=== PATIENT | female | born 1980 | race Caucasian/White ===

== ENCOUNTER 2023-08-04 08:46 | Outpatient (AMB) | payer BC, SELFPAY ==
[2023-08-04 08:52] VITALS: BP 120/90; PULSE 78; TEMP 36.2; O2SAT 99; BMI 34.9
--- NOTE | 2023-08-04 08:52 | AM.OFFWIN_ITS ---
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 Son home with Strep. [facility] Social History Patient Tobacco Use Status: Never used Tobacco Physical Exam Vital Signs: Last Vital Signs Temp 97.2 F 08/04/23 08:52 Pulse 78 08/04/23 08:52 BP 120/90 H 08/04/23 08:52 Pulse Ox 99 08/04/23 08:52 Oxygen Delivery Method Room Air 08/04/23 08:52 BMI result Body Mass Index 34.9 Const General: comfortable and no acute distress Orientation/consciousness: patient oriented x3 HEENT Head: Yes normocephalic Ears: external ears normal and TM abnormal with fluid behind the TM bilateral General nose exam: No nasal discharge present and Abnormal mucous membranes and turbinates present pale Face and sinus: Yes sinuses nontender Mouth: moist mucous membranes Throat: Yes posterior oropharynx normal Resp Effort & Inspection: normal respiratory effort and able to speak in complete sentences Auscultation: clear to auscultation bilaterally, no crackles, no rales, no rhonchi and no wheezes Cardio Palpation: normal PMI Rate: regular rate Rhythm: regular rhythm Neuro General: patient oriented x3 Results AMB Rapid Strep AMB Rapid Strep Negative Last Edit by Alyson Sanchez MA on 08/04/23 09:47 Results Reviewed Results Reviewed: Laboratory Last Values Strep Scn Rapid Clinic Negative 08/04/23 09:47 Assessment & Plan Assessment & Plan (1) Acute pharyngitis: Code(s): J02.9 - Acute pharyngitis, unspecified Qualifiers: Pharyngitis/tonsillitis etiology: unspecified etiology Qualified Code(s): J02.9 - Acute pharyngitis, unspecified Plan: - OTC cold remedies - Rest and hydrate well with warm fluids - Acetaminophen for pain relief. - Take medications as directed. Medications: New amoxicillin 500 mg PO BID 20 caps 0RF 10 days J02.9 - Acute pharyngitis, unspecified Coding Level of Care Code Est Pt Level 3 (58525) Diagnoses Acute pharyngitis, unspecified etiology J02.9 Pharyngitis/tonsillitis etiology: unspecified etiology Time Spent (min) 15
== END 2023-08-04 09:30 | disposition home or self-care (01) ==
PROVIDERS: PCP Internal Medicine; Visit Provider Nurse Practitioner Family
DX: J02.9 Acute pharyngitis, unspecified (principal)
CPT/HCPCS: 87880; 99213

== ENCOUNTER 2024-02-27 07:26 | Outpatient (AMB) | payer BC, SELFPAY ==
[2024-02-27 07:32] VITALS: BP 142/92; PULSE 69; O2SAT 100; BMI 39.1
--- NOTE | 2024-02-27 07:32 | A.OFFPC_ITS ---
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 Intake Note: Pt is here today as a New Patient to est care/PE Allergies semaglutide [From Ozempic] Adverse Reaction (Intermediate, Verified 02/27/24 08:22) Blurry Vision dulaglutide [From Trulicity] Adverse Reaction (Unverified 02/27/24 08:23) abd pain Medication List - Last Reconciled 02/27/24 by Jenny Xie MD estradiol 1 mg PO DAILY insulin lispro (Humalog U-100 Insulin) subcut levothyroxine 125 mcg PO DAILY lisinopril 5 mg PO DAILY progesterone micronized mg PO rosuvastatin 5 mg PO DAILY Tobacco use date assessed: 02/27/24 Dental Screening Dental Screen Date: 02/27/24 Did you have a dental visit in the last 12 months?: No Did you have a dental problem in the last 6 months where you did not have access to dental care?: No Was dental information given to patient?: Patient has dentist HPI 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 Past medical history includes insulin-dependent diabetes for 20 years on insulin pump. Patient is established with endocrinology at [facility]. 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 [facility] Family History Father Type 1 diabetes mellitus Brother Type 1 diabetes mellitus ALL (acute lymphoblastic leukemia) Mother HTN (hypertension) Social History Household Members Other:: , 3 children, (11-6). 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 1. Little interest or pleasure in doing things: not at all 2. Feeling down, depressed, or hopeless: not at all 3. Trouble falling or staying asleep, or sleeping too much: not at all 4. Feeling tired or having little energy: several days 5. Poor appetite or overeating: several days 6. Feeling bad about yourself - or that you are a failure or have let yourself or your family down: not at all 7. Trouble concentrating on things, such as reading the newspaper or watching television: not at all 8. Moving or speaking so slowly that other people could have noticed. Or the opposite - being so fidgety or restless that you have been moving around a lot more than usual: not at all 9. Thoughts that you would be better off or of hurting yourself in some way: not at all Total score: 2 Depression Screening Interpretation: Negative Depression Screening Done: Yes 99302 - PHQ-9 Billing: Yes Source: Developed by Drs. Simone Waldrop, Tiffany Chong, Ashish Linton and colleagues, with an educational felicia from [employer]. Thrive Questionnaire Date Thrive assessed: 02/27/24 I am a: Patient What is your living situation today?: I have a steady place to live Within the past 12 months, did the food you bought not last and you didn't have the money to get more?: Never true Within the past 12 months, did you worry whether your food would run out before you got money to buy more?: Never true Do you have trouble paying for medicines?: No Do you have trouble getting transportation to medical appointments?: No Do you have trouble paying your heating and electricity bill?: No Do you have trouble taking care of your child, family member or friend?: No Do you have trouble with day-to-day activities such as bathing, preparing meals, shopping, managing finances, etc.?: No Are you currently unemployed and looking for a job?: No Are you interested in more education?: No Please select the resources that you would like help with: None Currently or been in a relationship where the following occur: No concerns reported THRIVE Score: 0 AUDIT C Alcohol Use Questionnaire (AUDIT-C) 1. How often do you have a drink containing alcohol?: 2-4 times a month 2. How many drinks containing alcohol do you have on a typical day when you are drinking?: 1 or 2 3. How often do you have six or more drinks on one occasion?: Never Total Score: 2 ROSA-7 AMB Questionnaire ROSA-7 Date ROSA - 7 assessed: 02/27/24 Feeling nervous, anxious, or on edge: 1 = Several days Not being able to stop or control worryin = Not at all Worrying too much about different things: 0 = Not at all Trouble relaxin = Not at all Being so restless that it is hard to sit still: 0 = Not at all Becoming easily annoyed or irritable: 0 = Not at all Feeling afraid as if something awful might happen: 0 = Not at all Total ROSA-7 score (0-4 normal; 5-9 mild; 10-14 moderate; 15-21 severe): 1 Source: Developed by Drs. Simone Waldrop, Tifafny Chong, Ashish Linton and colleagues, with an educational felicia from [employer]. Review of Systems Const All systems reviewed & are unremarkable except as noted in HPI and below Reports no additional complaints Eyes Reports no additional complaints ENT Reports no additional complaints Card Reports no additional complaints Resp Reports no additional complaints GI Reports no additional complaints Reports no additional complaints Physical exam (Primary Care) Vital Signs: Last Vital Signs Pulse 69 02/27/24 07:32 BP 142/92 H 02/27/24 07:32 Pulse Ox 100 02/27/24 07:32 Oxygen Delivery Method Room Air 02/27/24 07:32 BMI result Body Mass Index 39.1 Tobacco/Smoking Status: Tobacco use Status Tobacco use date assessed 02/27/24 02/27/24 07:34 Patient Tobacco Use Status Never used Tobacco 02/27/24 08:16 e-Cigarette/Vaping Use Never Used 02/27/24 08:16 PHQ-9: PHQ-9 Score PHQ-9: Total score 2 02/27/24 08:28 Depression Screening Interpretation: Negative Thrive Assessment: Date of Thrive Assessment Date Thrive assessed 02/27/24 02/27/24 07:34 Currently or been in a relationship where the following occur: No concerns reported Const General: no acute distress HENMT Head: Yes normal to inspection Ears: hearing grossly normal bilaterally General nose exam: Normal external nose present Face and sinus: Yes normal facial exam Mouth: Normal oral and palatal mucosa present Throat: Yes posterior oropharynx normal Eyes General: appearance normal, both eyes and all related structures Neck Neck: Yes no lymphadenopathy and Yes supple Resp Effort & Inspection: normal respiratory effort Auscultation: clear to auscultation bilaterally Cardio Rhythm: regular rhythm Heart sounds: S1 normal heart sound present and S2 normal heart sound present GI Inspection: Yes normal to inspection Palpation (GI): Soft to palpation Percussion: Yes normal to percussion Auscultation: normal bowel sounds Coding Level of Care Code New Pt Prev Care 40-64y(21341) Diagnoses DM type 1 (diabetes mellitus, type 1) E10.9 Hypothyroid E03.9 HPV (human papilloma virus) infection B97.7 Annual physical exam Z00.00 HTN (hypertension) I10 Assessment & Plan Assessment & Plan (1) DM type 1 (diabetes mellitus, type 1): Comment: X 20yrs, f/u [facility] , recent A1C 7.3 01/04/2024 Code(s): E10.9 - Type 1 diabetes mellitus without complications Category: Medical Plan: f/u with Endocrine (2) Hypothyroid: Comment: f/u Endo [facility] Code(s): E03.9 - Hypothyroidism, unspecified Category: Medical Plan: cont Levothyroxine (3) HPV (human papilloma virus) infection: Comment: f/u Dr. 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 She will discussed trying [place]o with endocrinology to facilitate weight lost and diabetes control (5) HTN (hypertension): Code(s): I10 - Essential (primary) hypertension Category: Medical Plan: START 5 MG OF LISINOPRIL, INCREASE PHYSICAL ACTIVITY LOW-SODIUM DIET WEIGHT LOSS DISCUSSED WITH THE PATIENT FOLLOW-UP IN 1 MONTH Medications: New lisinopril 5 mg PO DAILY 90 tabs 0RF
== END 2024-02-27 08:40 | disposition home or self-care (01) ==
LOC: HO.HMCC 07:26
PROVIDERS: PCP Internal Medicine; Visit Provider Internal Medicine
DX: E10.9 Type 1 diabetes mellitus without complications (principal); E03.9 Hypothyroidism, unspecified; B97.7 Papillomavirus as the cause of diseases classified elsewhere; Z00.00 Encounter for general adult medical examination without abnormal findings; I10 Essential (primary) hypertension

== ENCOUNTER → 2024-02-27 07:26 | Outpatient (BNVA) | payer BC, SELFPAY | PROVIDERS: PCP Internal Medicine; Visit Provider Internal Medicine ==

== ENCOUNTER 2024-04-06 09:46 | Outpatient (AMB) | payer BC, SELFPAY ==
--- OUTSIDE RECORDS SUMMARY | 2024-04-06 09:51 | XMS_ITS | Data Portability ---
Author Organization [facility], Main Office Address [address] [place] [address] Care Team Providers Care Percolator Operator Name Role Phone SMILEY LEVINE Primary Care Provider [phone] GIL SAMANIEGO Referring Provider [phone] SANA WILSON Referring Provider [phone] HEBER ALDANA Patch Machine Operator SANA WILSON Tow Motor Mechanic Assessment No assessment recorded. Plan of Treatment Reminders Order Date Submit Date Provider Last Modified By Organization Details Last Modified Time Details Appointments None recorded. Lab None recorded. Referral rheumatolo gist referral - rheumatoid arthritis 2016 017 [email or web address] Oscar Delgado MD, [address], [place], [address], 8 13:33:07 dermatolog ist referral 2016 017 [email or web address] Not available 8 13:33:[address]/dietiti an referral 2017 018 [email or web address] Not available 8 12:06:[address]/dietiti an referral 2018 019 abigby Not available 9 15:54:[address]/dietiti an referral 2018 019 abigby Not available 9 15:53:47 barrel bander referral 2018 019 abigby Not available 9 15:54:[address] referral - Patient to schedule 2018 019 abigby Not available 9 15:54:18 Procedures None recorded. Surgeries None recorded. Imaging None recorded. Medication Orders None recorded. Patient Targets Encounter Date Encounter Id Patient Goals Patient Target Last Modified By Organization Details Last Modified Time 01/04/2018 [id number] Ongoing of Microalbumin/Cre atinine Ratio yearly Not available Not available Not available Ongoing of Blood Pressure Not available Not available Not available Ongoing of Hemoglobin A1C 2 times per yr Not available Not available Not available Ongoing of Hemoglobin A1C <7 Not available Not available Not available Ongoing of LDL Direct <100 Not available Not available Not available Ongoing of Cholesterol, LDL <100 Not available Not available Not available Pt advised and agrees to do moderate exercise (such as walking) for approximately 150 minutes per week; to decrease carbohydrate intake (25 % of total carbohydrates or less); and to monitor blood glucose as directed Will bring meter and/or readings to appointments. Patient preferences and goals incorporated in plan and updated/modified as needed to reflect progress toward goal. [email or web address] Not available 01/04/2018 10:46:59 Patient Instructions Encounter Date Encounter Id Patient Instructions Last Modified By Organization Details Last Modified Time 01/18/2014 [id number] tendon injury (tendinopathy): care instructions [email or web address] Not available 01/21/2014 08:11:36 shayna's thyroiditis: care instructions [email or web address] Not available 01/21/2014 08:11:36 learning about type 1 diabetes [email or web address] Not available 01/21/2014 08:11:36 type 1 diabetes: care instructions [email or web address] Not available 01/21/2014 08:11:36 rheumatoid arthritis diet: care instructions Not available 01/21/2014 08:11:36 Rheumatoid Arthritis (RA): Care Instructions [email or web address] Not available 01/21/2014 08:11:36 11/19/2016 [id number] learning about type 1 diabetes Not available 11/19/2016 09:30:52 type 1 diabetes: care instructions Not available 11/19/2016 09:30:53 rheumatoid arthritis diet: care instructions Not available 11/19/2016 09:30:52 Rheumatoid Arthritis (RA): Care Instructions Not available 11/19/2016 09:30:52 skin lesions: care instructions Not available 11/19/2016 09:30:52 01/04/2018 [id number] learning about type 1 diabetes [email or web address] Not available 01/04/2018 10:56:13 type 1 diabetes: care instructions pmadden Not available 01/04/2018 10:56:13 vitiligo: care instructions pmadden Not available 01/04/2018 10:56:13 starting a weight loss plan: care instructions pmadden Not available 01/04/2018 10:56:13 Nutrition Referral and Weight Management Follow-up Information [email or web address] Not available 01/04/2018 10:56:13 rheumatoid arthritis diet: care instructions pmadden Not available 01/04/2018 10:56:13 Rheumatoid Arthritis (RA): Care Instructions pmadden Not available 01/04/2018 10:56:13 skin lesions: care instructions pmadden Not available 01/04/2018 10:56:13 Medications (OTC, herbal therapies, supplements) reviewed and reconciled with patient and or caregiver, including potential side effects, drug interactions, instructions, and the consequences of not taking medication. Reviewed potential barriers to medication adherence, such as side effects from medication or cost of medication. I have reviewed the note and agree with the assessment and plan of care. [email or web address] Not available 01/04/2018 11:21:50 02/12/2019 [id number] starting a weight loss plan: care instructions Not available 02/12/2019 15:04:55 starting a weight loss plan: care instructions Not available 02/12/2019 15:05:18 Cervical Cancer Screening Not available 02/12/2019 15:04:55 02/20/2020 [id number] shayna's thyroiditis: care instructions [email or web address] Not available 02/20/2020 15:32:59 learning about type 1 diabetes [email or web address] Not available 02/20/2020 15:32:59 type 1 diabetes: care instructions [email or web address] Not available 02/20/2020 15:32:59 rheumatoid arthritis diet: care instructions [email or web address] Not available 02/20/2020 15:32:59 Rheumatoid Arthritis (RA): Care Instructions [email or web address] Not available 02/20/2020 15:32:59 Reason for Referral Maxillofacial Surgeon Referral for S kin lesion Referring Physician: Smiley Levine [facility], Encounter Date: 11/19/2016 Business Consult Referral for Rheumatoid arthritis rheumatoid arthritis Referring Physician: Smiley Levine [facility], Encounter Date: 11/19/2016 Territory Manager/dietitian Refer ral for Body mass index 30+ - obesity Referring Physician: Roderick Gallegos [facility], Encounter Date: 01/04/2018 Talent Buyer Referral for Sc reening for malignant neoplasm of cervix Patient to schedule Referring Physician: Roderick Gallegos [facility], Encounter Date: 02/12/2019 Sane Rn Referral for Type 1 diabetes mellitus Referring Physician: Roderick Gallegos [facility], Encounter Date: 02/12/2019 Territory Manager/dietitian Refer ral for Obesity Referring Physician: Roderick Gallegos [facility] Medicine, Encounter Date: 02/12/2019 Territory Manager/dietitian Refer ral for Obesity Referring Physician: Roderick Gallegos [facility] Medicine, Encounter Date: 02/12/2019 Results Created Date Observation Date Name Description Value Unit Range Abnormal Flag Note LastModifiedBy Organization Detail LastModifiedTime 04/03/2019 TSH, serum or plasm a hemoglobin A1C 7.5 Not Available [facility] [address], [address], 04/03/2019 10:08:12 04/03/2019 TSH, serum or plasm a TSH 0.791 Not Available [facility] [address], [address], 04/03/2019 10:08:12 02/16/2019 TSH, serum or plasm a A1C hemoglobin 7.2 Not Available [facility] [address], [place], [address], 02/16/2019 11:53:57 02/16/2019 TSH, serum or plasm a TSH 4.193 Not Available [facility] [place] [facility] [address], [place], [address], 02/16/2019 11:53:57 02/14/2019 TSH, serum or plasm a hemoglobin A1C 7.2 Not Available [facility] [place] [facility] [address], [place], [address], 02/14/2019 09:35:09 02/14/2019 TSH, serum or plasm a TSH 4.139 Not Available [facility] [place] [facility] [address], [place], [address], 02/14/2019 09:35:09 07/05/2018 micro album in, urine glucose 194 Not Available Not Avail[facility] ble 02/13/2019 13:23:36 07/05/2018 micro album in, urine BUN 16 Not Available Not Availa ble 02/13/2019 13:23:36 07/05/2018 micro album in, urine creatinine 0.86 Not Available Not Love [facility]able 02/13/2019 13:23:36 07/05/2018 micro album in, urine potassium 4.4 Not Available Not Avai lable 02/13/2019 13:23:36 07/05/2018 micro album in, urine sodium 139 Not Available Not Availa ble 02/13/2019 13:23:36 07/05/2018 micro album in, urine total cholesterol 175 Not Available Not Available 02/13/2019 13:23:36 07/05/2018 micro album in, urine LDL 103 Not Available Not Availa ble 02/13/2019 13:23:36 07/05/2018 micro album in, urine hgl 55 Not Available Not Availa ble 02/13/2019 13:23:36 07/05/2018 micro album in, urine triglyceride s 85 Not Available Not Available 01/24 13:23:36 02/13/2019 micro album in, urine TSH 3.743 Not Available Not Availa ble 02/13/2019 13:23:36 02/13/2019 micro album in, urine A1C hemoglobin 9.4 Not Available Not Available 1 13:23:36 02/13/2019 micro album in, urine microalbumin 1.0 Not Available Not A vailable 02/13/2019 13:23:36 07/05/2018 HbA1c (hemo globi n A1c), blood glucose 194 Not Available Not Availa ble 02/13/2019 11:40:45 07/05/2018 HbA1c (hemo globi n A1c), blood BUN 16 Not Available Not Availa ble 02/13/2019 11:40:45 07/05/2018 HbA1c (hemo globi n A1c), blood creatinine 0.86 Not Available Not Love ilable 02/13/2019 11:40:45 07/05/2018 HbA1c (hemo globi n A1c), blood potassium 4.4 Not Available Not Avai lable 02/13/2019 11:40:45 07/05/2018 HbA1c (hemo globi n A1c), blood sodium 139 Not Available Not Availa ble 02/13/2019 11:40:45 07/05/2018 HbA1c (hemo globi n A1c), blood total cholesterol 175 Not Available Not Available 02/13/2019 11:40:45 07/05/2018 HbA1c (hemo globi n A1c), blood LDL 103 Not Available Not Availa ble 02/13/2019 11:40:45 07/05/2018 HbA1c (hemo globi n A1c), blood hgl 55 Not Available Not Availa ble 02/13/2019 11:40:45 07/05/2018 HbA1c (hemo globi n A1c), blood triglyceride s 85 Not Available Not Available 01/24 11:40:45 02/13/2019 HbA1c (hemo globi n A1c), blood TSH 3.743 Not Available Not Availa ble 02/13/2019 11:40:45 02/13/2019 HbA1c (hemo globi n A1c), blood A1C hemoglobin 9.4 Not Available Not Available 1 11:40:45 02/13/2019 HbA1c (hemo globi n A1c), blood microalbumin 1.0 Not Available Not A vailable 02/13/2019 11:40:45 07/05/2018 lipid panel , serum glucose 194 Not Available Not Availa ble 07/05/2018 10:59:08 07/05/2018 lipid panel , serum BUN 16 Not Available Not Availa ble 07/05/2018 10:59:08 07/05/2018 lipid panel , serum creatinine 0.86 Not Available Not Love ilable 07/05/2018 10:59:08 07/05/2018 lipid panel , serum potassium 4.4 Not Available Not Avai lable 07/05/2018 10:59:08 07/05/2018 lipid panel , serum sodium 139 Not Available Not Availa ble 07/05/2018 10:59:08 07/05/2018 lipid panel , serum total cholesterol 175 Not Available Not Available 07/05/2018 10:59:08 07/05/2018 lipid panel , serum LDL 103 Not Available Not Availa ble 07/05/2018 10:59:08 07/05/2018 lipid panel , serum hgl 55 Not Available Not Availa ble 07/05/2018 10:59:08 07/05/2018 lipid panel , serum triglyceride s 85 Not Available Not Available 06/23 10:59:08 02/13/2019 lipid panel , serum TSH 3.743 Not Available Not Availa ble 07/05/2018 10:59:08 02/13/2019 lipid panel , serum A1C hemoglobin 9.4 Not Available Not Available 0 07/05/2018 10:59:08 02/13/2019 lipid panel , serum microalbumin 1.0 Not Available Not A vailable 07/05/2018 10:59:08 07/05/2018 BMP, serum or plasm a glucose 194 Not Available Not Availa ble 07/05/2018 10:59:08 07/05/2018 BMP, serum or plasm a BUN 16 Not Available Not Availa ble 07/05/2018 10:59:08 07/05/2018 BMP, serum or plasm a creatinine 0.86 Not Available Not Love ilable 07/05/2018 10:59:08 07/05/2018 BMP, serum or plasm a potassium 4.4 Not Available Not Avai lable 07/05/2018 10:59:08 07/05/2018 BMP, serum or plasm a sodium 139 Not Available Not Availa ble 07/05/2018 10:59:08 07/05/2018 BMP, serum or plasm a total cholesterol 175 Not Available Not Available 07/05/2018 10:59:08 07/05/2018 BMP, serum or plasm a LDL 103 Not Available Not Availa ble 07/05/2018 10:59:08 07/05/2018 BMP, serum or plasm a hgl 55 Not Available Not Availa ble 07/05/2018 10:59:08 07/05/2018 BMP, serum or plasm a triglyceride s 85 Not Available Not Available 06/23 10:59:08 02/13/2019 BMP, serum or plasm a TSH 3.743 Not Available Not Availa ble 07/05/2018 10:59:08 02/13/2019 BMP, serum or plasm a A1C hemoglobin 9.4 Not Available Not Available 0 07/05/2018 10:59:08 02/13/2019 BMP, serum or plasm a microalbumin 1.0 Not Available Not A vailable 07/05/2018 10:59:08 09/06/2017 TSH, serum or plasm a Unknown Analyte 6.4 Not Available Not Available 08/23 13:26:08 04/29/19 18 04/29/2017 HbA1c (hemo globi n A1c), blood Unknown Analyte 6.4 Not Available Not Available 08/23 10:47:42 06/29/19 19 06/28/2018 TSH, serum or plasm a TSH 3.743 Not Available Not Availa ble 07/05/2018 10:22:01 06/29/19 19 06/28/2018 TSH, serum or plasm a glucose 194 Not Available Not Availa ble 07/05/2018 10:22:01 06/29/19 19 06/28/2018 TSH, serum or plasm a BUN 16 Not Available Not Availa ble 07/05/2018 10:22:01 06/29/19 19 06/28/2018 TSH, serum or plasm a creatinine 0.86 Not Available Not Love ilable 07/05/2018 10:22:01 06/29/19 19 06/28/2018 TSH, serum or plasm a potassium 4.4 Not Available Not Avai lable 07/05/2018 10:22:01 06/29/19 19 06/28/2018 TSH, serum or plasm a sodium 139 Not Available Not Availa ble 07/05/2018 10:22:01 06/29/19 19 06/28/2018 TSH, serum or plasm a total cholesterol 175 Not Available Not Available 07/05/2018 10:22:01 06/29/19 19 06/28/2018 TSH, serum or plasm a LDL 103 Not Available Not Availa ble 07/05/2018 10:22:01 06/29/19 19 06/28/2018 TSH, serum or plasm a hgl 55 Not Available Not Availa ble 07/05/2018 10:22:01 06/29/19 19 06/28/2018 TSH, serum or plasm a triglyceride s 85 Not Available Not Available 06/23 10:22:01 06/29/19 19 06/28/2018 TSH, serum or plasm a A1C hemoglobin 9.4 Not Available Not Available 0 07/05/2018 10:22:01 06/29/19 19 06/28/2018 TSH, serum or plasm a microalbumin 1.0 Not Available Not A vailable 07/05/2018 10:22:01 11/25/19 19 2018 HbA1c (hemo globi n A1c), blood A1C hemoglobin 7.2 Not Available [facility] [place] [facility] [address], [address], 02/15/2019 10:54:15 11/25/19 19 2018 HbA1c (hemo globi n A1c), blood TSH 4.193 Not Available [facility] [place] [facility] [address], [address], 02/15/2019 10:54:15 11/25/19 19 2018 HbA1c (hemo globi n A1c), blood hemoglobin A1C 7.2 Not Available [facility] [place] [facility] [address], [address], 02/13/2019 09:06:04 11/25/19 19 2018 HbA1c (hemo globi n A1c), blood TSH 4.139 Not Available [facility] [place] [facility] [address], [address], 02/13/2019 09:06:04 03/30/20 19 03/30/2019 HbA1c (hemo globi n A1c), blood hemoglobin A1C 7.5 Not Available [place], [address], 04/02/2019 10:06:04 03/30/20 19 03/30/2019 HbA1c (hemo globi n A1c), blood TSH 0.791 Not Available [facility] [address] [place], [address], 04/02/2019 10:06:04 09/03/19 21 09/02/2020 HbA1c (hemo globi n A1c), blood HGB A1C 6.8 Not Available [facility] [address], [place], [address], 12/25/2020 14:20:18 04/10/20 14 04/10/2014 imagi ng/di agnos tic resul t No observ ation record ed. joseen z Not Available 04/10/2014 17:13:44 09/25/19 15 09/23/2014 imagi ng/di agnos tic resul t No observ ation record ed. joseen z [facility] (Ct) [address], [place], [address], 09/24/2014 19:05:17 03/05/20 16 03/05/2016 XR, chest , 2 view No observ ation record ed. annika z [facility] ([facility] [address] [facility], [place], [address], 03/08/2016 11:59:49 09/03/19 18 05/23/2017 pump and meter downl oad and inter preta tion* No observ ation record ed. [email or web address] z Not Available 09/03/2017 22:13:09 Result Notes None recorded. Problems Name Problem SNOMED Code Status Onset Date Resolution Date Notes Provider Name and Address Organization Details Recorded Time Acute bronchit is 93822108 Completed 201211/06/2013 IMPRESSI ON: PRODUCTI VE COUGH, WORSENIG N, HAS DM AND IS ON ENBREL FOR RA, WILL TX WITH ABX DUE TO RISK FACOTRS AND HAVE PT DISCUSS WITH RHEUM ABOUT HOLDING ENBREL; RECORDED 04/28/19 13 10:33AM BY RAMSEY RIGGS ON/ADDEN DUM Not Available [facility] 4 14:51:35 Patient status finding [id number] Completed 201311/06/2013 RECORDED 05/25/19 14 1:31PM BY MARIA DE JESUS ORTIZ MA, RAMSEY ON/ADDEN DUM [place], [facility] 8 10:12:42 Cough [id number] Completed 01/04/2018 [place], [facility] 8 10:12:32 Cough [id number] Completed 201311/06/2013 IMPRESSI ON: PERSISTA NT, OUT OF WORK TX BELOW; RECORDED 05/25/19 14 1:31PM BY MARIA DE JESUS ORTIZ MA, ANNOTATI ON/ADDEN DUM [place], [facility] 8 10:12:32 Type 2 diabetes mellitus without complica tion [id number] Completed 201211/06/2013 RECORDED 05/11/19 13 1:27PM BY RAMSEY RIGGS ON/ADDEN DUM Not Available [facility] 4 14:51:35 Dysfunct ional uterine bleeding Completed 201311/06/2013 IMPRESSI ON: PT HAD BEENO N CONTROL STARTED WITH NIGHT SWEATS AND OTHER SYMPTOMS , AND SAW NIGHT NURSE THEN INFERTIL ITY DOC IN [facility] AND WAS DX WITH PREMATUR E OVARIAN FAILURE. THIS ALL OCCURRED SINCE 12/03. PT HAS HAD MONTHL.Y FSH LEVELS AND AN ULTRASOU ND SHOWING SHE STILL HAD EGGS. PT WOULD LIKE TO GET , HAS WELL COTNROLL ED DM AND IS ON INSULIN, HAS RA AND IS ON ENBREL, TAKING MONTLY AFTER SHE GETS HER PERIOD. I RECC SHE DO A PREGNANC Y TEST BEFORE ENBREL TO CONFIRM NOT AND PT TO DISCUSS ENBREL WITH FERTILIT Y DOC. WILL TRANSFER FERTILIT Y CARE LOCALLY TO DR NUÑEZ.; RECORDED 05/25/19 14 1:31PM BY MARIA DE JESUS ORTIZ MA, RAMSEY ON/ADDEN DUM Not Available [facility] 4 14:51:35 Influenz a vaccine needed [id number] 06 Completed 201311/06/2013 RECORDED 05/25/19 14 1:31PM BY MARIA DE JESUS ORTIZ MA, ANNOTATI ON/ADDEN DUM Not Available [facility] 4 14:51:35 Adult health examinat ion Completed 201311/06/2013 IMPRESSI ON: PT IS 8 WEEKS , IS DOING WELL, 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NIGHT NURSE, WAS FOLLOWED AT HIGH RISK AT [facility] FOR IVF; RECORDED 05/25/19 14 1:31PM BY MARIA DE JESUS ORTIZ MA, ANNOTATI ON/ADDEN DUM Not Available [facility] 4 14:51:36 Hashimot o thyroidi tis 25797674 Active David Evans, [facility] [address], [place], [address] , [facility] 5 10:27:43 Follow-u p encounte r Completed 201311/06/2013 RECORDED 05/25/19 14 1:31PM BY MARIA DE JESUS ORTIZ MA, ANNOTATI ON/ADDEN DUM Not Available [facility] 4 14:51:36 Irritabl e bowel syndrome 79223857 Active David Evans, [facility] [address], [place], [address] , [facility] 5 10:27:43 Laborato ry procedur e performe d [id number] Completed 01/04/2018 Rosanna Odom MA null, [facility] 8 10:12:40 Active or passive immuniza tion Completed 201111/06/2013 RECORDED 05/05/19 12 2:22PM BY MARY PAVNO SUMMARY Not Available [facility] 4 14:51:36 Administ ration of viral vaccine Completed 200911/06/2013 RECORDED 03/12/20 10 9:20AM BY PRISCILL A PERALTA, HISTORIC AL SUMMARY Not Available [facility] 4 14:51:36 Administ ration of poliomye litis vaccine Completed 200911/06/2013 RECORDED 03/12/20 10 9:18AM BY LORE PERALTA, HISTORIC AL SUMMARY Not Available [facility] 4 14:51:36 Infectiv e hepatiti s immuniza tion Completed 200911/06/2013 RECORDED 03/12/20 10 9:12AM BY LORE PERALTA, HISTORIC AL SUMMARY Not Available [facility] 4 14:51:36 Administ ration of diphther ia, pertussi s, and tetanus vaccine Completed 200911/06/2013 RECORDED 03/12/20 10 9:15AM BY LORE PERALTA, HISTORIC AL SUMMARY Not Available [facility] 4 14:51:36 Administ ration of measles and mumps and rubella vaccine Completed 200911/06/2013 RECORDED 03/12/20 10 9:20AM BY LORE PERALTA, HISTORIC AL SUMMARY Not Available [facility] 4 14:51:36 Administ ration of tetanus vaccine Completed 201211/06/2013 RECORDED 04/28/19 13 10:33AM BY RAMSEY RIGGS ON/ADDEN DUM Not Available [facility] 4 14:51:36 Patient status finding [id number] Completed 01/04/2018 MALA Neal MA [facility] 8 10:12:42 History of clinical finding in subject [id number] Completed 201211/06/2013 RECORDED 04/28/19 13 10:33AM BY RAMSEY RIGGS ON/ADDEN DUM Not Available [facility] 4 14:51:37 Ovarian failure 347561903 Completed 201311/06/2013 RECORDED 05/25/19 14 1:31PM BY MARIA DE JESUS ORTIZ MA, ANNOTATI ON/ADDEN DUM Not Available [facility] 4 14:51:37 Rheumato id arthriti s 05595869 Active David Evans, [facility] [address], [place], [address] , [facility] 5 10:27:43 Screenin g for malignan t neoplasm of colon Completed 01/04/2018 Roderick Gallegos PA-C [address], [place], [address] , [facility] 8 10:43:32 Type 1 diabetes mellitus [id number] Active [facility], [facility] [address], [place], [address] , [facility] 5 10:27:42 Acute bronchit is 03912832 Completed 201211/29/2013 IMPRESSI ON: PRODUCTI VE COUGH, WORSENIG N, HAS DM AND IS ON ENBREL FOR RA, WILL TX WITH ABX DUE TO RISK FACOTRS AND HAVE PT DISCUSS WITH RHEUM ABOUT HOLDING ENBREL; RECORDED 04/28/19 13 10:33AM BY RAMSEY RIGGS ON/ADDEN DUM Not Available [facility] 4 13:02:08 Patient status finding [id number] Completed 201311/29/2013 RECORDED 05/25/19 14 1:31PM BY MARIA DE JESUS ORTIZ MA, RAMSEY ON/ADDEN DUM Rosanna Odom MA [facility], [facility] 8 10:12:42 Type 2 diabetes mellitus without complica tion [id number] Completed 201211/29/2013 RECORDED 05/11/19 13 1:27PM BY RAMSEY RIGGS ON/ADDEN DUM Not Available [facility] 4 13:02:08 Dysfunct ional uterine bleeding Completed 201311/29/2013 IMPRESSI ON: PT HAD BEENO N CONTROL STARTED WITH NIGHT SWEATS AND OTHER SYMPTOMS , AND SAW NIGHT NURSE THEN TALITIL JEWEL [place] IN [facility] AND WAS DX WITH PREMATUR E OVARIAN FAILURE. THIS ALL OCCURRED SINCE 12/03. PT HAS HAD MONTHL.Y FSH LEVELS AND AN ULTRASOU ND SHOWING SHE STILL HAD EGGS. PT WOULD LIKE TO GET , HAS WELL COTNROLL ED DM AND IS ON INSULIN, HAS RA AND IS ON ENBREL, TAKING MONTLY AFTER SHE GETS HER PERIOD. I RECC SHE DO A PREGNANC Y TEST BEFORE ENBREL TO CONFIRM NOT AND PT TO DISCUSS ENBREL WITH FERTILIT Y DOC. WILL TRANSFER FERTILIT Y CARE LOCALLY TO DR NUÑEZ.; RECORDED 05/25/19 14 1:31PM BY MARIA DE JESUS ORTIZ MA, ANNOTATI ON/ADDEN DUM Not Available [facility] 4 13:02:08 Influenz a vaccine needed [id number] 06 Completed 201311/29/2013 RECORDED 05/25/19 14 1:31PM BY MARIA DE JESUS ORTIZ MA, ANNOTATI ON/ADDEN DUM Not Available [facility] 4 13:02:08 Adult health examinat ion Completed 201311/29/2013 IMPRESSI ON: PT IS 8 WEEKS , IS DOING WELL, 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NIGHT NURSE, WAS FOLLOWED AT HIGH RISK AT [facility] FOR IVF; RECORDED 05/25/19 14 1:31PM BY MARIA DE JESUS ORTIZ MA, ANNOTATI ON/ADDEN DUM Not Available [facility] 4 13:02:08 Follow-u p encounte r Completed 201311/29/2013 RECORDED 05/25/19 14 1:31PM BY MARIA DE JESUS ORTIZ MA, ANNOTATI ON/ADDEN DUM Not Available [facility] 4 13:02:08 Active or passive immuniza tion Completed 201111/29/2013 RECORDED 05/05/19 12 2:22PM BY LORE PERALTA, HISTORIC AL SUMMARY Not Available [facility] 4 13:02:09 Administ ration of viral vaccine Completed 200911/29/2013 RECORDED 03/12/20 10 9:20AM BY LORE PERALTA, HISTORIC AL SUMMARY Not Available [facility] 4 13:02:09 Administ ration of poliomye litis vaccine Completed 200911/29/2013 RECORDED 03/12/20 10 9:18AM BY LORE PERALTA, HISTORIC AL SUMMARY Not Available [facility] 4 13:02:09 Infectiv e hepatiti s immuniza tion Completed 200911/29/2013 RECORDED 03/12/20 10 9:12AM BY LORE PERALTA, HISTORIC AL SUMMARY Not Available [facility] 4 13:02:09 Administ ration of diphther ia, pertussi s, and tetanus vaccine Completed 200911/29/2013 RECORDED 03/12/20 10 9:15AM BY LORE PERALTA, HISTORIC AL SUMMARY Not Available [facility] 4 13:02:09 Administ ration of measles and mumps and rubella vaccine Completed 200911/29/2013 RECORDED 03/12/20 10 9:20AM BY LORE PERALTA, HISTORIC AL SUMMARY Not Available [facility] 4 13:02:09 Administ ration of tetanus vaccine Completed 201211/29/2013 RECORDED 04/28/19 13 10:33AM BY RAMSEY RIGGS ON/ADDEN DUM Not Available [facility] 4 13:02:09 History of clinical finding in subject [id number] Completed 201211/29/2013 RECORDED 04/28/19 13 10:33AM BY RAMSEY RIGGS ON/ADDEN DUM Not Available [facility] 4 13:02:09 Ovarian failure [id number] Completed 201311/29/2013 RECORDED 05/25/19 14 1:31PM BY MARIA DE JESUS ORTIZ MA, RAMSEY ON/ADDEN DUM Not Available [facility] 4 13:02:09 Acute bronchit is [id number] Completed 201211/30/2013 IMPRESSI ON: PRODUCTI VE COUGH, WORSENIG N, HAS DM AND IS ON ENBREL FOR RA, WILL TX WITH ABX DUE TO RISK FACOTRS AND HAVE PT DISCUSS WITH RHEUM ABOUT HOLDING ENBREL; RECORDED 04/28/19 13 10:33AM BY RAMSEY RIGGS ON/ADDEN DUM Not Available [facility] 4 03:51:25 Patient status finding [id number] Completed 201311/30/2013 RECORDED 05/25/19 14 1:31PM BY MARIA DE JESUS ORTIZ MA, MONYATI ON/ADDEN DUM Rosanna Odom MA [place], [place] - [facility] 8 10:12:42 Type 2 diabetes mellitus without complica tion [id number] Completed 201211/30/2013 RECORDED 05/11/19 13 1:27PM BY RAMSEY RIGGS ON/ADDEN DUM Not Available [facility] 4 03:51:25 Dysfunct ional uterine bleeding Completed 201311/30/2013 JEFFI ON: PT HAD BEENO N CONTROL STARTED WITH NIGHT SWEATS AND OTHER SYMPTOMS , AND SAW NIGHT NURSE THEN [facility]ERTIL [facility]EWEL DOC IN [facility] AND WAS DX WITH PREMATUR E OVARIAN FAILURE. THIS ALL OCCURRED SINCE 12/03. PT HAS HAD MONTHL.Y FSH LEVELS AND AN ULTRASOU ND SHOWING SHE STILL HAD EGGS. PT WOULD LIKE TO GET , HAS WELL COTNROLL ED DM AND IS ON INSULIN, HAS RA AND IS ON ENBREL, TAKING MONTLY AFTER SHE GETS HER PERIOD. I RECC SHE DO A PREGNANC Y TEST BEFORE ENBREL TO CONFIRM NOT AND PT TO DISCUSS ENBREL WITH FERTILIT Y DOC. WILL TRANSFER FERTILIT Y CARE LOCALLY TO DR NUÑEZ.; RECORDED 05/25/19 14 1:31PM BY MARIA DE JESUS ORTIZ MA, RAMSEY ON/ADDEN DUM Not Available [facility] 4 03:51:25 Influenz a vaccine needed [id number] 06 Completed 201311/30/2013 RECORDED 05/25/19 14 1:31PM BY MARIA DE JESUS ORTIZ MA, RAMSEY ON/ADDEN DUM Not Available [facility] 4 03:51:25 Adult health examinat ion Completed 201311/30/2013 RIOS ON: PT IS 8 WEEKS , IS DOING WELL, 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NIGHT NURSE, WAS FOLLOWED AT HIGH RISK AT [facility] FOR IVF; RECORDED 05/25/19 14 1:31PM BY MARIA DE JESUS ORTIZ MA, MONYATI ON/ADDEN DUM Not Available [facility] 4 03:51:25 Follow-u p encounte r Completed 201311/30/2013 RECORDED 05/25/19 14 1:31PM BY MARIA DE JESUS ORTIZ MA, RAMSEY ON/ADDEN DUM Not Available [facility] 4 03:51:25 Active or passive immuniza tion Completed 201111/30/2013 RECORDED 05/05/19 12 2:22PM BY LORE PERALTA, HISTORIC AL SUMMARY Not Available [facility] 4 03:51:25 Administ ration of viral vaccine Completed 200911/30/2013 RECORDED 03/12/20 10 9:20AM BY LORE PERALTA, HISTORIC AL SUMMARY Not Available [facility] 4 03:51:25 Administ ration of poliomye litis vaccine Completed 200911/30/2013 RECORDED 03/12/20 10 9:18AM BY LORE PERALTA, HISTORIC AL SUMMARY Not Available [facility] 4 03:51:25 Infectiv e hepatiti s immuniza tion Completed 200911/30/2013 RECORDED 03/12/20 10 9:12AM BY LORE PERALTA, HISTORIC AL SUMMARY Not Available [facility] 4 03:51:26 Administ ration of diphther ia, pertussi s, and tetanus vaccine Completed 200911/30/2013 RECORDED 03/12/20 10 9:15AM BY LORE PERALTA, HISTORIC AL SUMMARY Not Available [facility] 4 03:51:26 Administ ration of measles and mumps and rubella vaccine Completed 200911/30/2013 RECORDED 03/12/20 10 9:20AM BY LORE PERALTA, HISTORIC AL SUMMARY Not Available [facility] 4 03:51:26 Administ ration of tetanus vaccine Completed 201211/30/2013 RECORDED 04/28/19 13 10:33AM BY RAMSEY RIGGS ON/ADDEN DUM Not Available [facility] 4 03:51:26 History of clinical finding in subject [id number] Completed 201211/30/2013 RECORDED 01/04/20 13 10:33AM BY RAMSEY RIGGS ON/ADDEN DUM Not Available [facility] 4 03:51:26 Ovarian failure [id number] Completed 201311/30/2013 RECORDED 05/25/19 14 1:31PM BY MARIA DE JESUS ORTIZ MA, RAMSEY ON/ADDEN DUM Not Available [facility] 4 03:51:26 Tendinit is [id number] Completed 01/04/2018 [place] Neal [facility] 8 10:12:36 Suspecte d COVID-19 [id number] Completed 10/24/2020 Removal Reason: Problem added by user [email or web address] from the COVID-19 watch flag Anamika Clayton jennifer [facility] 1 14:46:47 Problem Notes None recorded. Procedures Surgical History Date Name Laterality Status Provider Name and Address Organization Details Recorded Time 02/13/20 19 Diabetic Foot Exam (Monofilament) completed Teresa Gallegos PA-C [address] [facility], [place], [address], [facility] 02/12/2019 15:24:35 12/25/19 19 Date of Last Pap Smear completed Abraham Monk MA [facility] 02/20/2020 14:53:32 05/01/19 10 Date of Last Colonoscopy completed Rosanna Odom MA [facility] 01/04/2018 10:15:13 05/01/19 10 Colonoscopy completed Rosanna Odom MA [facility] 01/04/2018 10:15:02 Tonsillectomy completed Abraham Monk MA [facility] 01/18/2014 14:37:34 Other completed Abraham Monk MA [facility] 01/18/2014 14:42:13 Imaging Results Imaging Date Name Status LastModified by Organiz ation Details LastModified Time 04/10/2014 imaging/diagn ostic result completed [email or web address] Information not available 04/10/2014 17:13:44 09/23/2014 imaging/diagn ostic result completed [email or web address] [facility] (Ct) [address], [place], [address], 09/24/2014 19:05:17 03/05/2016 XR, chest, 2 view completed [facility] ([facility] [address], [place], [address], 03/08/2016 11:59:49 05/23/2017 pump and meter download and interpretatio n* completed [facility] Information not available 09/03/2017 22:13:09 Procedure Notes None recorded. Medical Equipment None Reported. Allergies No known drug allergies Medications Name Sig Start Date Stop Date Status Note LastModified by Organization Details LastModified Time oxycodone hcl 5 mg tabs 01/04 completed Not Available Not Available Not Available levothyro xine sodium 137 mcg tabs 01/04 completed Not Available Not Available Not Available humalog 100 unit/ml soln 01/04 completed Not Available Not Available Not Available amoxicill in 875 mg tabs 01/04 completed Not Available Not Available Not Available ibuprofen 600 mg tabs 01/04 completed Not Available Not Available Not Available levothyro xine sodium 125 mcg tabs 01/04 completed Not Available Not Available Not Available levothyro xine sodium 150 mcg tabs 01/04 completed Not Available Not Available Not Available contour nia next 01/04 completed Not Available Not Available Not Available tab 28-0.8mg 01/04 completed Not Available Not Available Not Available metformin 500 mg tablet 02/12 completed Not Available Not Available Not Available levothyro xine 175 mcg tablet Take 1 tablet every day by oral route as directed for 90 days. active Not Available Not Available No t Available levothyro xine 137 mcg tablet 1 tablet every other day by oral route. 11/18 completed Not Available Not Available Not Available insulin glargine (U-100) 100 unit/mL subcutane ous solution 04/28 completed RECORDED 04/28/19 13 10:37AM BY ABRAHAM MONK, OFFICE VISIT;15 -30 UNITS DAILY Not Available Not Available Not Available azithromy charline 250 mg tablet QD 02/12 completed Not Available Not Available Not Available Humalog U-100 Insulin 100 unit/mL subcutane ous solution Inject 100 sliding scale doses every day by sub-q route for 90 days. active Not Available Not Available No t Available levothyro xine 50 mcg tablet QD active RECORDED 09/12/19 14 10:45AM BY ROSANNA ODOM MA, OFFICE VISIT; Not Available Not Available Not Available cephalexi n 500 mg capsule 02/19 completed Not Available Not Available Not Available erythromy charline 5 mg/gram (0.5 %) eye ointment 02/12 completed Not Available Not Available Not Available levothyro xine 125 mcg tablet Take 1 tablet every day by oral route. 02/19 completed Not Available Not Available Not Available levothyro xine 150 mcg tablet active Not Available Not Available Not Available aspirin 81 mg tablet Take 1 tablet every day by oral route. 01/04 completed Not Available Not Available Not Available neomycin 3.5 mg-polymy sherrell 10,000 unit-hydr ocort 10 mg/mL eye drop,susp 02/12 completed Not Available Not Available Not Available codeine-g uaifenesi n oral syrup Q 6HRS PRN COUGH 04/28 completed RECORDED 04/28/19 13 10:37AM BY ABRAHAM MONK, OFFICE VISIT;[facility] Not Available Not Available Not Available Microgest in 1.530 (21) 1.5 mg-30 mcg tablet QD active RECORDED 04/27/19 12 10:05AM BY SMILEY Gimenez MD, ANNOTATI ON/ADDEN DUM; Not Available Not Available Not Available 1 tab daily orally 02/12 completed Not Available Not Available Not Available Enbrel WEEKLY 04/28 completed RECORDED 09/12/19 14 10:45AM BY STEFANY GASTON PA-C, OFFICE VISIT; Not Available Not Available Not Available Humalog Mix 50-50 (U-100) Insulin 100 unit/mL subcutane ous suspensio n Inject 1 sliding scale dose every day by subcutan eous route. 02/12 completed Not Available Not Available Not Available levothyro xine 112 mcg capsule Take 1 capsule every day by oral route. 11/18 completed Not Available Not Available Not Available 28 mg iron-800 mcg tablet 02/12 completed Not Available Not Available Not Available Contour Next Test Strips 02/12 completed Not Available Not Available Not Available Trulicity 1.5 mg/0.5 mL subcutane ous pen injector Inject 1.5 mL every week by sub-q route for 84 days. active Not Available Not Available No t Available Trulicity 0.75 mg/0.5 mL subcutane ous pen injector 02/12 completed Not Available Not Available Not Available Vitals Date Recorded Body weight Body mass index (BMI) Body height Oxygen saturation Oxygen saturation in Arterial blood by Pulse oximetry Heart rate Body temperature Systolic blood pressure Diastolic blood pressure Provider Name and Address Organization Details Last Updated DateTime 7 03066.6 2 g 33.3 kg/m2 162.56 cm 98 % 98 % 83 /min 98.6 [degF] 117 mm[Hg] 65 mm[Hg] Abraham Monk MA [facility] 7 08:48:51 Date Recorded Body height Body mass index (BMI) Body weight Heart rate Oxygen saturation Oxygen saturation in Arterial blood by Pulse oximetry Body temperature Systolic blood pressure Diastolic blood pressure Provider Name and Address Organization Details Last Updated DateTime 8 162.56 cm 36.2 kg/m2 77847.9 9 g 74 /min 98 % 98 % 98.6 [degF] 118 mm[Hg] 80 mm[Hg] Rosanna Odom MA [facility] 8 10:20:05 Date Recorded Body height Body mass index (BMI) Body weight Heart rate Body temperature Oxygen saturation Oxygen saturation in Arterial blood by Pulse oximetry Systolic blood pressure Diastolic blood pressure Provider Name and Address Organization Details Last Updated DateTime 9 162.56 cm 34.2 kg/m2 07308.8 8 g 90 /min 97.3 [degF] 98 % 98 % 108 mm[Hg] 70 mm[Hg] Rosanna Odom MA [facility] 9 14:45:20 Date Recorded Body height Oxygen saturation Oxygen saturation in Arterial blood by Pulse oximetry Heart rate Body temperature Body mass index (BMI) Body weight Systolic blood pressure Diastolic blood pressure Provider Name and Address Organization Details Last Updated DateTime 0 162.56 cm 98 % 98 % 87 /min 98.42 [degF] 31.6 kg/m2 53220.7 g 123 mm[Hg] 71 mm[Hg] Abraham Monk MA [facility] 0 14:47:28 Date Recorded Oxygen saturation Oxygen saturation in Arterial blood by Pulse oximetry Body weight Heart rate Body mass index (BMI) Body height Body temperature Systolic blood pressure Diastolic blood pressure Provider Name and Address Organization Details Last Updated DateTime 4 99 % 99 % 85122.0 83248 g 78 /min 29.6 kg/m2 162.56 cm 98.1 [degF] 119 mm[Hg] 68 mm[Hg] Abraham Monk MA [facility] 4 14:53:05 Social History Question Answer Notes LastModified by Organizat ion Details LastModified Time Tobacco Smoking Status Never Smoker Abraham Monk MA [facility] 01/18/2014 14:42:04 Do You Have An Advance Directive? No [email or web address] Information not available 01/18/2014 What Is Your Level Of Alcohol Consumption? Occasional [email or web address] Information not available 01/18/2014 Animal Exposure? No [email or web address] Informat ion not available 01/18/2014 Do You Wear A Helmet When Biking? No [email or web address] Information not available 01/18/2014 Is Blood Transfusion Acceptable In An Emergency? Yes [email or web address] Information not available 01/18/2014 What Is Your Level Of Caffeine Consumption? Occasional [email or web address] Information not available 01/18/2014 How Much Tobacco Do You Chew? None [email or web address] Information not available 01/18/2014 Are You Currently Employed? Yes [email or web address] Information not available 01/18/2014 What Type Of Diet Are You Following? REGULAR Information not available 01/18/2014 Which Illicit Or Recreational Drugs Have You Used? None Information not available 01/04/2018 Do You Or Have You Ever Used E-cigarettes Or Vape? 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 No [email or web address] Information no t available 01/18/2014 How Many Days In The Past Year Have You Had A Heavy Drinking Consumption (4+ Female, 5+ Male)? 0 [email or web address] Information no t available 01/18/2014 Are There Any Guns Present In Your Home? No Information not available 01/18/2014 Legally Blind In One Or Both Eyes? No [email or web address] Information no t available 01/18/2014 Live Alone Or With Others? With Others Information not available 02/12/2019 Do You Take Precautions To Prevent Distracted Driving? Yes [email or web address] Information not available 11/19/2016 How Often Do You Need To Have Someone Help You When You Read Instructions, Pamphlets, Or Other Written Material From Your Doctor Or Pharmacy? Never Information not available 01/04/2018 Have You Served In The ? No [email or web address] Information not available 11/19/2016 Have You Or Anyone In Your Household Had Any Of The Following Symptoms In The Last 14 Days: Sore Throat, Cough, Chills, Body Aches For Unknown Reasons, Shortness Of Breath For Unknown Reasons, Loss Of Smell, Loss Of Taste, Fever At Or Greater Than 100 Degrees Fahrenheit? No [email or web address] Information not available 02/20/2020 Are You Or Anyone In Your Household A Health Care Provider Or Emergency Responder? Yes [email or web address] Information not available 02/20/2020 To The Best Of Your Knowledge Have You Been In Close Proximity To Any Individual Who Tested Positive For COVID-19? No [email or web address] Information not available 02/20/2020 Marital Status Domestic Partner [email or web address] Information not available 01/18/2014 What Was The Date Of Your Most Recent Tobacco Screening? 01/04/2018 Information not available 11/16/2018 How Many Children Do You Have? 2 [email or web address] Information not available 11/19/2016 Do You Use Protection During Sex? No [email or web address] Information not available 01/18/2014 Difficulty Reading? No [email or web address] Information not available 01/18/2014 What Is Your Relationship Status? Domestic Partner [email or web address] Information not available 01/18/2014 Seat Belts Used Routinely Yes [email or web address] Information not available 01/18/2014 Are You Sexually Active? Yes [email or web address] Information not available 01/18/2014 Smoke Alarm In Home Yes Information not available 01/04/2018 At What Age Did You Start Smoking Tobacco? 0 Information not available 01/04/2018 Are You Passively Exposed To Smoke? No Information no t available 01/04/2018 Do You Or Have You Ever Used Smokeless Tobacco? Never Used Smokeless Tobacco Information not available 02/12/2019 How Much Tobacco Do You Smoke? No Information not available 01/04/2018 Do You Use Any Illicit Or Recreational Drugs? No [email or web address] Information not available 01/18/2014 Do You Use Sunscreen Routinely? Yes Information not available 01/18/2014 How Many Years Have You Smoked Tobacco? 0 Information not available 01/04/2018 Sex: Unknown Functional Status Question Answer Note LastModified by Organizat ion Details LastModified Time Do you have difficulty walking or climbing stairs? No [email or web address] Information not available 01/18/2014 [address]iculty [address] at night? No [email or web address] Information no t available 01/18/2014 Are you able to care for yourself? Yes [email or web address] Information not available 01/18/2014 Do you have difficulty dressing or bathing? No [email or web address] Information not available 01/18/2014 What is your exercise level? Occasional [email or web address] Information not available 01/18/2014 Mental Status Question Answer Note LastModified by Organization D etails LastModified Time Do you have difficulty concentrating, remembering or making decisions? No [email or web address] Information no t available 01/18/2014 Family History Relationship Description Onset Age of this Age Resolved Age Notes LastModified by Organization Details LastModified Time Father Diabetes mellitus [email or web address] Not available 01/18 14:40:46 Brother Diabetes mellitus [email or web address] Not available 01/18 14:40:46 Mother Hypertensive disorder Not available 01/18 14:40:46 Notes:No colon or breast can cer Medical History Condition Response Coronary Artery Disease N Other N Gout N Kidney Stones N Blood Diseases N Hyperthyroidism N Breast Cancer N mrsa exposure N Hypothyroidism Y Depression N COPD N Lung Disease N Developmental or Behavioral Disorders N Defects or Inherited Disease N Breast Problem N Anesthesia Complications N Headaches/Migraines N Varicose Veins N Anxiety Disorder N Muscle, Joint, or Bone Problems N Obesity N Vision or Eye Problems N Arthritis N Head Injury/Concussion N Polyps N Infertility N Mental Disorder N Congenital Anomalies N Acid Reflux (GERD) N Cancer N Stroke N ADHD N Endometriosis N High Cholesterol N Liver Disease N Headaches N Fibromyalgia N Kidney Disease N Heart Problems N Ear or Hearing Problems N Hospitalizations N Thyroid Problems N GI Problems Y Developmental Delay N Acne N Skin Problems N Eating Disorder N Anemia N Constipation N Bladder Problems N Mental Illness N Ovarian Cancer N Diabetes Y Bedwetting N Blood Transfusions N Seizures/Epilepsy N Heart Problems/Murmur N Tuberculosis N AIDS/HIV N Congestive Heart Failure (CHF) N Eczema N Diverticulitis N Abuse/Domestic Violence N Asthma N Allergies N Reflux/GERD N Hepatitis N Heart Disease N Pulmonary Embolism N Hypertension N Chicken Pox N Autism Spectrum Disorder (ASD) N Osteoporosis N Gynecological History Statement/Question Response Abnormal Pap Y Flow Moderate 01/02/2014 STIs/STDs N HPV Vaccine Y Duration of Flow (days) 6 Current Control Method None Most Recent Mammogram Age at First Child 32 Date of Last Colonoscopy 05/01/2009 Most Recent Bone Density Sexually Active? Y Date of Last Pap Smear 12/24/2018 Sexual Problems? N Desired Control Method None N Obstetrics History GPAL:G 0 P 0 0 0 0 Immunizations Vaccine Type Date Status Note Provider Nam e and Address Organization Details Recorded Time Influenza, split virus, quadrivalent, preservative 9 completed Rosanna Odom MA [facility] 02/12/2019 14:38:43 Influenza, split virus, quadrivalent, preservative 0 completed Abraham Monk MA [facility] 02/20/2020 14:49:54 Hep B, adult 8 completed Not Available [facility] 11/06/2013 13:40:31 Hep B, adult 9 completed Not Available [facility] 11/06/2013 13:40:31 Hep B, adult 1 completed Not Available [facility] 11/06/2013 13:40:31 DTaP 1 completed Not Available [facility] 11/06/2013 13:40:31 DTaP 1 completed Not Available [facility] 11/06/2013 13:40:31 DTaP 2 completed Not Available [facility] 11/06/2013 13:40:31 DTaP 3 completed Not Available [facility] 11/06/2013 13:40:31 DTaP 6 completed Not Available [facility] 11/06/2013 13:40:31 Td (adult), 2 Lf tetanus toxoid, preservative free, adsorbed 6 completed Not Available [facility] 11/06/2013 13:40:31 IPV 1 completed Not Available [facility] 11/06/2013 13:40:31 IPV 1 completed Not Available [facility] 11/06/2013 13:40:31 IPV 2 completed Not Available [facility] 11/06/2013 13:40:31 IPV 6 completed Not Available [facility] 11/06/2013 13:40:32 MMR 2 completed Not Available [facility] 11/06/2013 13:40:32 MMR 2 completed Not Available [facility] 11/06/2013 13:40:32 HPV, quadrivalent 6 completed Not Available [facility] 11/06/2013 13:40:32 HPV, quadrivalent 7 completed Not Available [facility] 11/06/2013 13:40:32 HPV, quadrivalent 7 completed Not Available [facility] 11/06/2013 13:40:32 Influenza, split virus, trivalent, preservative 1 completed Not Available [facility] 11/06/2013 13:40:32 pneumococcal polysaccharide PPV23 1 completed Not Available [facility] 11/06/2013 13:40:32 Tdap 6 completed Not Available [facility] 11/06/2013 13:40:32 Influenza, split virus, trivalent, preservative 2 completed Not Available [facility] 11/06/2013 13:40:32 Tdap 3 completed Not Available [facility] 11/06/2013 13:40:32 Past Encounters Encounter ID Performer Location Encounter Start Date Encounter Closed Date Diagnosis/Indication Diagnosis SNOMED-CT Code Diagnosis ICD10 Code [id number] autoEComm erce [id number] [facility] [place], [place] [address] 03/23/2010 00:00:00 [id number] autoEComm erce [id number] [facility] [place], [place] [address] 07/08/2010 00:00:00 [id number] autoEComm erce [id number] [facility] [place] [address] 04/27/2011 00:00:00 [id number] autoEComm erce [id number] [facility] [place] [address] 04/28/2012 00:00:00 [id number] autoEComm erce [id number] [facility] [place] [address] 09/11/2013 00:00:00 [id number] Main Office [address] [address] [place] [address] 01/18/2014 14:33:24 01/18/2014 15:15:24 Adult health examination 900941565 Type 1 deidre betes mellitus 47267339 Shayna thyroiditis 21 057051 Rheumatoid arthritis 698 57705 Tendinitis 33093355 [id number] [facility] [address] [address] [place] [address] 11/19/2016 08:37:01 11/19/2016 09:31:09 Adult health examination 041538979 Z00.00 Skin lesion 45660291 L98 .9 Rheumatoid arthritis 698 23130 M06.9 Type 1 deidre betes mellitus 77865909 E10.9 [id number] [facility] [address] [address] [place] [address] 01/04/2018 09:58:30 01/04/2018 10:57:54 Adult health examination 713317486 Z00.00 Needs infl uenza immunization 683188228 Z23 Skin lesion 37626484 L98 .9 Rheumatoid arthritis 698 33631 M06.9 Type 1 deidre betes mellitus 15681396 E10.9 Shayna thyroiditis 21 599240 E06.3 Vitiligo 12992083 L80 Body mass index 30+ - obesity 522112671 Z68.36 [id number] Teresa Gallegos PA-C Main Office [address] [facility] [address] [place] [address] 02/12/2019 14:32:31 02/12/2019 15:19:52 Adult health examination 370323208 Z00.00 Screening for malignant neoplasm of cervix 185824645 Z12.4 Type 1 deidre betes mellitus 70239154 E10.9 Rheumatoid arthritis 698 41890 M06.9 Shayna thyroiditis 21 284990 E06.3 Obesity 775359917 E66.9 Z68.30 [id number] Smiley hobson Main Office [address] [facility] [address] [facility] [place] [phone] 02/20/2020 14:29:55 02/20/2020 15:42:45 Adult health examination [id number] Z00.00 Shayna thyroiditis 21 768582 E06.3 Rheumatoid arthritis 698 13743 M06.9 Type 1 deidre betes mellitus [id number] E10.9 Health Concerns Section Related Observation LastModified by Organization Detai ls LastModified Time None Recorded Concern Status LastModified by Organization Details LastModified Time None Recorded Advance Directives Directive N: Payers Encounter Date Sequence Insurance Name Policy Number Policy Sawyer Covered Member ID Sawyer Member ID Guarantor Name 01/18/2014 [place] [facility] [place]UE [id number] Collette P Schnauber [id number] Collette P Schnauber 11/19/2016 [place] [facility] [place]UE [id number] Collette P Schnauber [id number] Collette P Schnauber 01/04/2018 1 [place] [id number] Collette P Schnauber [id number] Collette P Schnauber 02/12/2019 1 [place] [facility] [place]UE [id number] Collette P Schnauber [id number] Collette P Schnauber 02/20/2020 1 [place] [id number] Collette P Schnauber [id number] Collette P Schnauber Notes Date Note Type Note Provider Name and Address Organization Details Recorded Time 01/18/2014 text/html Pt is here for a PE. she is diong well, all her screening is utd, DM well controlled Smiley Mita rodriguez [facility] 01/19/2014 21:30:49 11/19/2016 text/html Pt is here for a n annual PE. She is in her first trimester, has type 1 DM, is followed by all her care in [place]. SHe notes her last A1C was a bit high at 8.4 but is working on adjusting her diet, was also having some lows, now on very low carb diet. Smiley Mita rodriguez [facility] 11/19/2016 09:33:40 01/04/2018 text/html here for annual pe. Smiley DelaneyRoberrick mathewshelley rodriguez, [facility] 01/04/2018 11:22:00 02/12/2019 text/html Generic HPI TemplateReported bypatient.Notes:38 year old female for annual PE. Sees NIGHT NURSE yearly. Pt. has h/o abnormal Pap Smears and prior colposcopies . HPV positive. NO prior h/o mammograms. NO family h/o breast cancer.Vaccies are up to date.RA. Nonsymptomatic. Have not been taking meds since the . 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 PT. kis on Trulicity now and lost 11 lbs so far.Exercise--- Here and there. Diet--- restricting carbs.Nonsmoker. ETOH-- occasional.Type I DM without complications. Labs stable in June. Diabetic control improved on insulin pump. Pt. is also on Trulicity for weight and lost 11 lbs. Last diabetic eye exam was earlier today. Pt. denies foot pain or numbness. BP is normal. Teresa Gallegos PA-C [address] [facility] [address], [place], [address], [facility] 02/12/2019 15:30:28 02/20/2020 text/html PT is here for a PE. 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 PT with Type 1 DM, doing well with pump, endo in [place] where she works treats her and gets all labs. Not on med for RA, wa on Enbrel up until last 2.5 years ago, off since, denies any joint symptoms, has not sen her rheum doc to discuss if staying off is ok Smiley rodriguez, [place] - [facility] 02/20/2020 15:33:51 OBGyn Episode No OBEpisode recorded.
[2024-04-06 09:52] VITALS: BP 122/78; PULSE 73; O2SAT 98; BMI 39.0
--- NOTE | 2024-04-06 09:52 | MHC.PC.OV ---
Vital Signs 04/06/24 09:52 Height 5 ft 3 in Weight 220 lb BMI 39.0 BP 122/78 Blood Pressure Location Rt brachial Position Sitting Pulse 73 Pulse Source Pulse Oximeter Pulse Oximetry (%) 98 Oxygen Delivery Method Room Air Intake Visit Reasons: 1 month f/u Intake Note: Pt is here today for 1 month follow up visit. Allergies semaglutide [From Ozempic] Adverse Reaction (Intermediate, Verified 04/06/24 09:57) Blurry Vision dulaglutide [From Trulicity] Adverse Reaction (Unverified 04/06/24 09:57) abd pain Medication List - Last Reconciled 04/06/24 by Jenny Xie MD estradiol 1 mg PO DAILY insulin lispro (Humalog U-100 Insulin) subcut levothyroxine 125 mcg PO DAILY lisinopril 5 mg PO DAILY progesterone micronized mg PO rosuvastatin 5 mg PO DAILY Tobacco use date assessed: 04/06/24 Dental Screening Dental Screen Date: 02/27/24 HPI 1 month f/u HPI Details Patient presents for the follow-up on hypertension controlled on lisinopril. 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 She has 3 children, ages between 7 and 11 and has been very busy with after school activities. Patient has not been able to exercise regularly. [facility] Family History Father Type 1 diabetes mellitus Brother Type 1 diabetes mellitus ALL (acute lymphoblastic leukemia) Mother HTN (hypertension) Social History Household Members Other:: , 3 children, (11-6). 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 Patient Tobacco Use Status: Never used Tobacco e-Cigarette/Vaping Use: Never Used service: No Current occupational status: employed Cognitive needs: No Hearing needs: No Vision needs: No Questionnaire Thrive Questionnaire Date Thrive assessed: 02/21/24 I am a: Patient What is your living situation today?: I have a steady place to live Within the past 12 months, did the food you bought not last and you didn't have the money to get more?: Never true Within the past 12 months, did you worry whether your food would run out before you got money to buy more?: Never true Do you have trouble paying for medicines?: No Do you have trouble getting transportation to medical appointments?: No Do you have trouble paying your heating and electricity bill?: No Do you have trouble taking care of your child, family member or friend?: No Do you have trouble with day-to-day activities such as bathing, preparing meals, shopping, managing finances, etc.?: No Are you currently unemployed and looking for a job?: No Are you interested in more education?: No Please select the resources that you would like help with: None Currently or been in a relationship where the following occur: No concerns reported THRIVE Score: 0 ROSA-7 AMB Questionnaire ROSA-7 Date ROSA - 7 assessed: 02/27/24 Source: Developed by Drs. Simone Waldrop, Tiffany Chong, Ashish Linton and colleagues, with an educational felicia from [employer]. Review of Systems Const All systems reviewed & are unremarkable except as noted in HPI and below Eyes Reports no additional complaints ENT Reports no additional complaints Card Reports no additional complaints Resp Reports no additional complaints GI Reports no additional complaints Reports no additional complaints Physical exam (Primary Care) Vital Signs: Last Vital Signs Pulse 73 04/06/24 09:52 BP 122/78 04/06/24 09:52 Pulse Ox 98 04/06/24 09:52 Oxygen Delivery Method Room Air 04/06/24 09:52 BMI result Body Mass Index 39.0 Tobacco/Smoking Status: Tobacco use Status Tobacco use date assessed 04/06/24 04/06/24 10:00 Patient Tobacco Use Status Never used Tobacco 04/06/24 09:53 e-Cigarette/Vaping Use Never Used 04/06/24 09:53 Thrive Assessment: Date of Thrive Assessment Date Thrive assessed 02/21/24 04/06/24 09:53 Currently or been in a relationship where the following occur: No concerns reported Const General: no acute distress HENMT Head: Yes normal to inspection Eyes General: appearance normal, both eyes and all related structures Neck Neck: Yes supple Resp Effort & Inspection: normal respiratory effort Auscultation: clear to auscultation bilaterally Cardio Rhythm: regular rhythm Heart sounds: S1 normal heart sound present and S2 normal heart sound present GI Inspection: Yes normal to inspection Coding Level of Care Code Est Pt Level 3 (00278) Diagnoses HTN (hypertension) I10 DM type 1 (diabetes mellitus, type 1) E10.9 Assessment & Plan Assessment & Plan (1) HTN (hypertension): Code(s): I10 - Essential (primary) hypertension Category: Medical Plan: Continue Lisnopril (2) DM type 1 (diabetes mellitus, type 1): Comment: X 20yrs, f/u [facility] , recent A1C 7.3 01/04/2024 Code(s): E10.9 - Type 1 diabetes mellitus without complications Category: Medical Plan: Continue current treatment, increase physical activity discussed with the patient she will return for physical in 1 year Medications: Refilled lisinopril 5 mg PO DAILY 90 tabs 3RF
== END 2024-04-06 10:39 | disposition home or self-care (01) ==
PROVIDERS: PCP Internal Medicine; Visit Provider Internal Medicine
DX: I10 Essential (primary) hypertension (principal); E10.9 Type 1 diabetes mellitus without complications

== ENCOUNTER 2025-03-07 09:12 | Outpatient (AMB) | payer BC, SELFPAY ==
[2025-03-07 09:14] VITALS: BP 120/72; PULSE 67; RESP 16; TEMP 36.7; O2SAT 97; BMI 40.6
--- NOTE | 2025-03-07 09:14 | MHC.PC.OV ---
Vital Signs 03/07/25 09:14 Height 5 ft 3 in Weight 229 lb BMI 40.6 BP 120/72 Blood Pressure Location Lt brachial Position Sitting Respiration 16 Pulse 67 Pulse Source Pulse Oximeter Temp 98.0 F Temp Source Oral Pulse Oximetry (%) 97 Oxygen Delivery Method Room Air Intake Visit Reasons: annual exam Intake Note: Pt is here today for PE. Allergies semaglutide (From Ozempic) Adverse Reaction (Intermediate, Verified 03/07/25 09:14) Blurry Vision dulaglutide (From Trulicity) Adverse Reaction (Unverified 03/07/25 09:14) abd pain Medication List - Last Reconciled 03/07/25 by Jenny Xie MD estradiol 1 mg PO DAILY insulin lispro (Humalog U-100 Insulin) subcut levothyroxine 125 mcg PO DAILY lisinopril 5 mg PO DAILY progesterone micronized mg PO rosuvastatin 5 mg PO DAILY Tobacco use date assessed: 03/07/25 Dental Screening Dental Screen Date: 03/07/25 Did you have a dental visit in the last 12 months?: Yes Did you have a dental problem in the last 6 months where you did not have access to dental care?: No Was dental information given to patient?: Patient has dentist HPI annual exam HPI Details Pt presents for PE. [facility] Medical History (Updated 03/07/25 @ 10:05 by Jenny Xie MD) Annual physical exam HPV (human papilloma virus) infection Hypothyroid Tiffanie's disease DM type 1 (diabetes mellitus, type 1) HTN (hypertension) Surgical History (Updated 03/07/25 @ 09:39 by Jenny Xie MD) Hx of colonoscopy Hx of tonsillectomy Hx of section Family History Father Type 1 diabetes mellitus Brother Type 1 diabetes mellitus ALL (acute lymphoblastic leukemia) Mother HTN (hypertension) Social History Household Members Other:: , 3 children, (11-6). 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 1. Little interest or pleasure in doing things: not at all 2. Feeling down, depressed, or hopeless: not at all 3. Trouble falling or staying asleep, or sleeping too much: not at all 4. Feeling tired or having little energy: several days 5. Poor appetite or overeating: several days 6. Feeling bad about yourself - or that you are a failure or have let yourself or your family down: not at all 7. Trouble concentrating on things, such as reading the newspaper or watching television: not at all 8. Moving or speaking so slowly that other people could have noticed. Or the opposite - being so fidgety or restless that you have been moving around a lot more than usual: not at all 9. Thoughts that you would be better off or of hurting yourself in some way: not at all Total score: 2 Depression Screening Interpretation: Negative Depression Screening Done: Yes 76060 - PHQ-9 Billing: Yes Source: Developed by Drs. Simone Waldrop, Tiffany Chong, Ashish Linton and colleagues, with an educational felicia from [employer]. Thrive Questionnaire Date Thrive assessed: 03/04/25 I am a: Patient What is your living situation today?: I have a steady place to live Within the past 12 months, did the food you bought not last and you didn't have the money to get more?: Never true Within the past 12 months, did you worry whether your food would run out before you got money to buy more?: Never true Do you have trouble paying for medicines?: No Do you have trouble getting transportation to medical appointments?: No Do you have trouble paying your heating and electricity bill?: No Do you have trouble taking care of your child, family member or friend?: No Do you have trouble with day-to-day activities such as bathing, preparing meals, shopping, managing finances, etc.?: No Are you currently unemployed and looking for a job?: No Are you interested in more education?: No Please select the resources that you would like help with: None Currently or been in a relationship where the following occur: No concerns reported THRIVE Score: 0 AUDIT C Alcohol Use Questionnaire (AUDIT-C) 1. How often do you have a drink containing alcohol?: 2-4 times a month 2. How many drinks containing alcohol do you have on a typical day when you are drinking?: 1 or 2 3. How often do you have six or more drinks on one occasion?: Never Total Score: 2 ROSA-7 AMB Questionnaire ROSA-7 Date ROSA - 7 assessed: 03/07/25 Feeling nervous, anxious, or on edge: 0 = Not at all Not being able to stop or control worryin = Not at all Worrying too much about different things: 0 = Not at all Trouble relaxin = Not at all Being so restless that it is hard to sit still: 0 = Not at all Becoming easily annoyed or irritable: 0 = Not at all Feeling afraid as if something awful might happen: 0 = Not at all Total ROSA-7 score (0-4 normal; 5-9 mild; 10-14 moderate; 15-21 severe): 0 Source: Developed by Drs. Simone Waldrop, Tiffany Chong, Ashish Linton and colleagues, with an educational felicia from [employer]. ROSA-7 Assessment Billing ROSA-7 Assessment Tool: ROSA-7 Assessment 89373 Review of Systems Const All systems reviewed & are unremarkable except as noted in HPI and below Eyes Reports no additional complaints ENT Reports no additional complaints Card Reports no additional complaints Resp Reports no additional complaints GI Reports no additional complaints Reports no additional complaints Musc Reports no additional complaints Physical exam (Primary Care) Vital Signs: Last Vital Signs Temp 98.0 F 03/07/25 09:14 Pulse 67 03/07/25 09:14 Resp 16 03/07/25 09:14 BP 120/72 03/07/25 09:14 Pulse Ox 97 03/07/25 09:14 Oxygen Delivery Method Room Air 03/07/25 09:14 BMI result Body Mass Index 40.6 Tobacco/Smoking Status: Tobacco use Status Tobacco use date assessed 03/07/25 03/07/25 09:15 Patient Tobacco Use Status Never used Tobacco 03/07/25 09:15 e-Cigarette/Vaping Use Never Used 03/07/25 09:15 PHQ-9: PHQ-9 Score PHQ-9: Total score 2 03/07/25 09:35 Depression Screening Interpretation: Negative Thrive Assessment: Date of Thrive Assessment Date Thrive assessed 03/04/25 03/07/25 09:15 Currently or been in a relationship where the following occur: No concerns reported Const General: no acute distress HENMT Head: Yes normal to inspection Ears: hearing grossly normal bilaterally Face and sinus: Yes normal facial exam Throat: Yes posterior oropharynx normal Eyes General: appearance normal, both eyes and all related structures Neck Neck: Yes no lymphadenopathy and Yes supple Resp Effort & Inspection: normal respiratory effort Auscultation: clear to auscultation bilaterally Cardio Rhythm: regular rhythm Heart sounds: S1 normal heart sound present and S2 normal heart sound present GI Inspection: Yes normal to inspection Palpation (GI): Soft to palpation Percussion: Yes normal to percussion Auscultation: normal bowel sounds Coding Level of Care Code Est Pt Prev Care 40-64y(79972) Diagnoses HTN (hypertension) I10 DM type 1 (diabetes mellitus, type 1) E10.9 Hypothyroid E03.9 Annual physical exam Z00.00 Additional Codes ROSA-7 Assessment Billing - ROSA-7 Assessment Tool: ROSA-7 Assessment 36206 ([id number]) PHQ-9 - 03231 - PHQ-9 Billing: Yes ([id number]) Assessment & Plan Assessment & Plan (1) HTN (hypertension): Code(s): I10 - Essential (primary) hypertension Category: Medical Plan: Continue lisinopril (2) DM type 1 (diabetes mellitus, type 1): Comment: X 20yrs, f/u [facility] , recent A1C 7.3 01/04/2024, intolerant to Trulicity and Ozempic Code(s): E10.9 - Type 1 diabetes mellitus without complications Category: Medical Plan: ADA diet regular physical activity discussed with the patient she is established with [facility] endocrinology. Patient will provide results of the most recent blood work (3) Hypothyroid: Comment: f/u Endo [facility] Code(s): E03.9 - Hypothyroidism, unspecified Category: Medical Plan: Continue levothyroxine (4) Annual physical exam: Code(s): Z00.00 - Encounter for general adult medical examination without abnormal findings Category: Medical Plan: Well-balanced diet regular physical activity weight loss discussed with the patient. She will schedule mammogram. Patient had has not had a Pap smear for 5 years. She will return for Pap smear. Colon cancer screening discussed with the patient. Cologuard will be checked next year
--- OUTSIDE RECORDS SUMMARY | 2025-03-07 10:22 | XMS_ITS | Clinical Summary ---
Author Organization [facility] Address [address] [place] [address] Care Team Providers Care Condominium Property Manager Name Role Phone Jenny Xie Primary Care Provider Medications * This document contains information received from the source organization and may not represent a complete record from that organization. CONTOUR NEXT TEST STRIPS test stripIndications: Type 1 diabetes mellitus without complications Use to test 7 times daily. 650 strip 3 9 1:21 PM EDT 07/12/19 19 Active glucagon, human recombinant, (glucagon) 1 mg injection Glucagon Emergency 1 MG Injection Kit Use are directed for hypoglycemia Quantity: 2; Refills: 2 DOLORES FAGAN N.P.; Started 29-Jul-2010 Active 07/30/19 11 Active lisinopriL (PRINIVIL,ZESTRIL ) 5 mg tablet Take 1 tablet (5 mg total) by mouth once a day. 90 tablet 3 5 9:36 AM EDT 04/06/20 24 Active insulin lispro injection 100 units/mL vial USE IN INSULIN PUMP DIRECTED, UP TO 100 UNITS DAILY 90 mL 3 5 5:45 PM EDT 05/18/19 25 026 Active rosuvastatin (CRESTOR) 5 mg tablet Take 1 tablet (5 mg total) by mouth once a day. 90 tablet 3 5 9:36 AM EDT 08/22/19 25 Active estradioL (ESTRACE) 1 mg tablet Take 1 tablet (1 mg total) by mouth once a day. 90 tablet 3 5 9:36 AM EDT 11/20/19 25 Active progesterone (PROMETRIUM) 200 mg capsule Take 1 capsule (200 mg total) by mouth once a day. Take for first 12 days in the month only 36 capsule 3 5 9:36 AM EDT 11/20/19 25 Active levothyroxine (SYNTHROID, LEVOTHROID) 125 mcg tablet Take 1 tablet (125 mcg total) by mouth daily. 90 tablet 3 02/12/20 25 Active blood-glucose sensor (Dexcom G7 Sensor) device Change sensor every 10 days. 9 each 3 02/12/20 25 Active metFORMIN (GLUCOPHAGE) 500 mg tablet Take 1 tablet (500 mg total) by mouth once a day. 90 tablet 3 3 7:47 AM EDT 08/07/19 23 024 Discontin ued(Disco ntinued by Patient) Active Problems Patient Care Coordination No te Formatting of this note migh t be different from the original. 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 The blood sugars are slightly higher than target and I anticipate her hemoglobin A1c to be slightly above 7%. Sugars are slightly high in the morning on waking, so I have increased her basal rate at 2 AM from 0.65 units to 0.675 units/h. The correction factor has been increased to 30 from 35, except for the 2 AM segment and 2 PM segment. So now, she will have a correction factor of 30 for 7 AM to 2 PM I have also increased her bolus ratios in the morning from 10- to 9.5. Bolus ratio rest of the day was left the same. It is hoped that the small changes will bring the sugars down slightly throughout the day Assessment & Plan (03/22/2017 11:44 AM EST): The sugars are high during workdays but not on weekends. 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 A TSH will be rechecked today. Encounters Date Type Department Care Team Description 02/11/2025 Refill [facility] [address] [place] [id number] Pharmaceutical Plant Operator: Anthony Rodriguez MD 12/26/2024 myChart Message [facility] [address] [address] Mychart, Generic Provider [facility] from Last 3 Months Immunizations Immunization Administration Dates Next Due INFLUENZA, SPLIT VIRUS, TRIVALENT, PF 02/01/2013 ,02/09/2011,02/25/2010 Pneumococcal Polysaccharide Vaccine, 23 Valent 09/10/2003 Family History Medical History Relation Name Comments Other Brother 1 Fraternal histo ry of Type I Diabetes Mellitus Other Brother 2 Fraternal histo ry of Hyperlipidemia Other Brother 3 Fraternal histo ry of Hypertension Other Father Paternal histor y of Type I Diabetes Mellitus Other Mother Maternal histor y of Hypertension Other Other Family history of Coronary Artery Disease Relation Name Status Comments Brother 1 Brother 2 Brother 3 Father Mother Other Social History Tobacco Use Types Packs/Day Years Used Date Smoking Tobacco: Never Comments:: Comments Unknown Sex and Gender Information Value Date Recorded Sex Assigned at Not on file Legal Sex Female 1:57 AM EDT Gender Identity Not on file Sexual Orientation Not on file Last Filed Vital Signs Vital Sign Reading Time Taken Comments Blood Pressure 110/70 11/13/2019 12:05 PM EDT Pulse 72 11/13/2019 12:05 PM EDT Temperature 36.8 C (98.2 F) 04/10/2014 8:18 AM EST Respiratory Rate - - Oxygen Saturation - - Inhaled Oxygen Concentration - - Weight 96.2 kg (212 lb) 03/05/2016 1:52 PM EST Height 160 cm (5' 3 ) 03/05/2016 1:52 PM EST Body Mass Index 37.55 03/05/2016 1:52 PM EST Plan of Treatment Health Maintenance Due Date Last Done Comments HIV Screening 1980 Varicella Vaccines (1 of 2 - 13+ 2-dose series) 1993 Pneumococcal Vaccine: Pediat jeremías (0-5 Years) and At-Risk Patients (6-50 Years) (2 of 2 - PCV) 04/25/2011 04/25/2010, 09/10/2003 Pap Smear 07/19/2014 07/20/2011, 11/2010, 05/14/2010, Additional history exists Cervical Cancer Screening 07/19/2016 HPV and Pap Smear 07/19/2016 07/20/2011, , 05/14/2010, Additional history exists Ophthalmology Exam 01/07/2019 01/07/2018 Mammogram 2020 DTaP,Tdap,and Td Vaccines (8 - Td or Tdap) 11/30/2022 11/30/2012, 04/25/2005, 01/25/1996, Additional history exists Alcohol/Substance Use Screening 04/25/2024 Depression Screening and Follow-Up 04/25/2024 Social Drivers of Health [place] ual Screening 04/25/2024 Urine Microalbumin 06/15/2024 06/15/2023, 0 08/18/2022, 09/02/2020, Additional history exists Influenza Vaccine (#1) 2024 , 02/08/2024, 01/24/2023, Additional history exists COVID-19 Vaccine ( - 2024-2 6 season) 2024 03/13/2021, 06/11/2020, 05/21/2020 Hemoglobin A1C 01/03/2025 07/03/2024, 12/24, 06/15/2023, Additional history exists Basic Metabolic Panel 07/03/2025 07/03/2024 , 03/21/2024, 01/04/2024, Additional history exists Hepatitis B Vaccines Completed 04/01/2001, 11/25/1998, 05/22/1997 Hepatitis C Screening Completed 12/14/2011, 10/06/2 009 Procedures * Due to [place] state law, this organization might not be sharing negative HIV tests. Procedure Name Priority Date/Time Associated Diagnosis Comments HEMOGLOBIN A1C Routine 07/03/2024 8:08 AM EDT Other chest pain Type 1 diabetes mellitus without complication COMPREHENSIVE METABOLIC PANEL Routine 07/03/2024 8:08 AM EDT Other chest pain Type 1 diabetes mellitus without complication MICROALBUMIN, RANDOM URINE WITH CREATININE Routine 06/15/2023 3:17 PM EST Type 1 diabetes mellitus without complications HM DIABETES EYE EXAM Routine 01/07/2018 HEPATITIS C ANTIBODY, CONVERSION STAT 12/14/2011 8:02 AM EDT PAP W/HPV, CONVERSION Routine 07/20/2011 9:11 AM EDT from Last 3 Months or Most Recently Relevant to Health Maintenance Results * Due to [place] law, this organization might not be sharing negative HIV tests. * (ABNORMAL) Hemoglobin A1c (07/03/2024 8:08 AM EDT) Hemoglobin A1C 8.5(H) <5.7 % of total Hgb 07/03/2024 6:19 PM EDT [facility] Comment: For someone without known diabetes, a hemoglobin A1c value of 6.5% or greater indicates that they may have diabetes and this should be confirmed with a follow-up test. For someone with known diabetes, a value <7% indicates that their diabetes is well controlled and a value greater than or equal to 7% indicates suboptimal control. A1c targets should be individualized based on duration of diabetes, age, comorbid conditions, and other considerations. Currently, no consensus exists regarding use of hemoglobin A1c for diagnosis of diabetes for children. eAG (MG/DL) 197 mg/dL 07/03/2024 6:19 PM EDT [facility] eAG (MMOL/L) 10.9 mmol/L 07/03/2024 6:19 PM EDT [facility] Blood Structure of peripheral vein / Unknown Venipuncture / Unknown 07/03/2024 8:08 AM EDT 07/03/2024 8:59 AM EDT Narrative STEVE DAVIS - 07/03/2024 6:19 PM EDT [facility] Received Date: us Anthony Gutierrez MD LAB BLOOD ORDERABLES Final Resu lt [facility] [address], [place] [address], [place] [phone] [facility] [address], [place] [address], [place] [phone] * (ABNORMAL) Comprehensive Metabolic Panel (07/03/2024 8:08 AM EDT) NA 142 135 - 145 mmol/L 07/03/2024 9:37 AM EDT [facility] K 4.3 3.5 - 5.3 mmol/L 07/03/2024 9:37 AM EDT [facility] Cl 105 98 - 107 mmol/L 07/03/2024 9:37 AM EDT [facility] CO2 25 22 - 32 mmol/L 07/03/2024 9:37 AM EDT [facility] Anion Gap 12 5 - 15 07/03/2024 9:37 AM EDT [facility] Glucose 145(H) 65 - 99 mg/dL 07/03/2024 9:37 AM EDT [facility] Creatinine 0.91 0.50 - 1.20 mg/dL 07/03/2024 9:37 AM EDT [facility] Calcium 8.7 8.6 - 10.5 mg/dL 07/03/2024 9:37 AM EDT [facility] Total Protein 7.0 6.0 - 8.0 g/dL 07/03/2024 9:37 AM EDT [facility] Albumin 4.1 3.5 - 5.2 g/dL 07/03/2024 9:37 AM EDT [facility] Bilirubin, Total 0.3 0.2 - 1.2 mg/dL 07/03/2024 9:37 AM EDT [facility] Alkaline Phosphatase 59 35 - 129 U/L 07/03/2024 9:37 AM EDT [facility] AST 24 10 - 40 U/L 07/03/2024 9:37 AM EDT [facility] ALT 19 10 - 40 U/L 07/03/2024 9:37 AM EDT [facility] BUN 19 7 - 23 mg/dL 07/03/2024 9:37 AM EDT [facility] eGFR 80 >=60 mL/min/1. 73m2 07/03/2024 9:37 AM EDT [facility] Comment:The estimated glomer ular filtration rate (eGFR) is calculated using a new formula developed by the NKF-ASN task force to eliminate race-based correction factors. The new formula uses serum/plasma creatinine, age, and gender to determine eGFR. A value below 60mls/min might indicate kidney disease and will be flagged. For additional information, see Patel et al, Am J Kidney Dis. 2021;79(2):268- 288, A Unifying Approach for GFR estimation: Recommendations of the NKF-ASN Task Force on Reassessing the Inclusion of Race in Diagnosing Kidney Disease . Globulin, Total 2.9 2.1 - 4.2 g/dL 07/03/2024 9:37 AM EDT [facility] A/G Ratio 1.4(L) 1.5 - 3.0 07/03/2024 9:37 AM EDT [facility] Blood Structure of peripheral vein / Unknown Venipuncture / Unknown 07/03/2024 8:08 AM EDT 07/03/2024 8:59 AM EDT Anthony Gutierrez MD LAB BLOOD ORDERABLES Final Resu lt [facility] [address] [place] [address], [place] * Microalbumin, Random Urine with Creatinine (06/15/2023 3:17 PM EST) Microalbumin, Urine <1.0 mg/dL 06/15/2023 5:12 PM EST [facility] Creatinine, Urine 165 15 - 278 mg/dL 06/15/2023 5:12 PM EST [facility] Microalb/Creat Ratio, Random Urine 06/15/2023 5:12 PM EST [facility] Comment: < 1.0 mcg/mgCr Microalbumin Reference Range: Normal <30 mcg/mg Creatinine Microalbuminuria 30-300 mcg/mg Creatinine Clinical Albuminuria >300 mcg/mg Creatinine Reference: ADA Guideline. Diabetes Care. 2004;27 (suppl 1) Urine Voided urine specimen / Unknown Non-Blood Collection / Unknown 06/15/2023 3:17 PM EST 06/15/2023 3:28 PM EST us Anthony Gutierrez MD LAB URINE ORDERABLES Final Resu lt Performing Organization Address [facility]/ZIP Co de Phone Number [facility] [address] [place] [address], [place] * HM Eye Exam, Diabetic (01/07/2018) us Unknown Provider HEALTH MAINTENANCE Final Res ult * HEPATITIS C ANTIBODY, CONVERSION (12/14/2011 8:02 AM EDT) Hepatitis C Antibody <0.02 <1.00 [facility] HCV Interpretation Negative [facility] Comment: Not infected with HCV, unless recent infection is suspected or other evidence exists to indicate HCV infection. 12/14/2011 8:02 AM EDT 12/14/2011 10:08 AM EDT us Aleida Yanes MD LAB HISTORICAL RESULTS Final R esult [facility] [address] [place] [address], [place] * Pap w/HPV (07/20/2011 9:11 AM EDT) Path Procedure HPV (725213) 1 [id number] 1 TPGAS ([id number]) 1 Edited by: [id number] CLAUDIA [id number] - 1219 [id number] - 1548 [facility] Specimen Labeled As: 1 CERVICAL/ENDOCERVI RUMA CYTO MATERIAL - Edited by: [id number] DRU [facility] Additional Test Information Specimens were tested for high risk HPV using the FDA approved Digene Hybrid Capture II kit, in the Diagnostic Molecular Oncology Lab at [facility]. This test can detect HPV high risk types 16, 18, 31, 33, 35, 39, 45, 51, 52, 56, 58, 59 and 68. High-risk subtypes of HPV are found in ~96% of patients with high grade squamous intraepithelial lesions and cervical squamous cell carcinoma. Additional studies may be indicated in spite of a negative HPV test, e.g. in patients with a friable cervix or multiple previous abnormal Pap tests. HPV testing is not recommended for managing patients with atypical glandular cells. Not all high-risk HPV infections are associated with a histologic or cytologic abnormality. We endorse the recommendations of the [place] Society for Colposcopy and Cervical Pathology for management of Pap test results, available at www.asccp.org. ASCCP guidelines also recommend HPV 16/18 genotyping in patients over the age of 30 who have had positive high risk HPV testing, but have a negative morphologic Pap test (http://www.asccp. org/consensus.shtm l). The performance characteristics of this test have been validated by the Laboratory of Diagnostic Molecular Oncology. They have not been cleared or approved by the U.S. Food and Drug Administration (FDA). The FDA has determined that such clearance or approval is not necessary. The laboratory is certified (CLIA-88) to perform high complexity clinical laboratory testing. Edited by: [id number] - 1219 BW-[id number] [facility] Diagnosis Thinprep Pap Test Adequacy: Satisfactory for evaluation Interpretation: EPITHELIAL CELL ABNORMALITY - SQUAMOUS Low Grade Squamous Intraepithelial Lesion This Pap test was examined by the ThinPrep Imaging System, [employer], [place], [place]. - High risk HPV DNA subtypes: POSITIVE Edited by: [id number] - 1220 BW-[id number] - 1548 [facility] - [facility] Gynecologic Clinical Data Specimen source:, THINPREP (CERVICAL AND ENDOCERVICAL) [facility] Gynecologic Clinical Data First date of LMP:, not given [facility] Pathology Codes Client Order Code:, [email or web address] [facility] Pathology Codes Bill Type:, 3RD [employer] [facility] Data Sent To Pathologist SENT TO PATHOLOGIST ON 07/23/11 AT 1420 Edited by: [id number] - 1427 [facility] Completed Report CYTOPATH; DRIER UNLOADER PHYSICIAN INT 1 CYTOPATH C/V AUTORESCR SCR 1 [facility] Marker 1 ECA,EPITHELIAL CELL ABNORMALITIES [facility] Marker 2 [facility] Marker 3 LGSIL,CT LGSIL [facility] Marker 4 PHPV,POSITIVE HPV [facility] - [facility] Marker 5 RIM,RECEIVED IN MOLECULAR [facility] Marker 6 EVANGELINA PRATER [facility] Cc Results To BHAVANA GREENE [id number] [facility] Signature REPORT SIGNED: PATRICK MORALES MD 07/23/11 [facility] Sign Out Audit PATRICK MORALES MD [id number] FINAL Y [place] [id number] [facility] Cytology / Unknown 2 9:11 AM EDT 07/21/2011 9:11 AM EDT us uYe Loving HEALTH AND SAFETY MANAGER LAB HISTORICAL RESULTS Fin al Result [facility] [address] [place] [address], from Last 3 Months or Most Recently Relevant to Health Maintenance Insurance [facility] HMO/POS Care Teams Condominium Property Manager Relationship Specialty Start Date End Date Jenny Xie [address] [place] [address] PCP - General Internal Medicine 05/25/23
--- OUTSIDE RECORDS SUMMARY | 2025-03-07 10:22 | XMS_ITS | Encounter Summary ---
Author Organization [facility] Address [address] [place] [address] Care Team Providers Care Mold Mover Name Role Phone Jenny Xie Primary Care Provider [phone] Encounter Details Date Type Department Care Team (Late st Contact Info) Description 06/17/2016 Orders Only [facility] [address] [place] [address] [phone] Anthony Gutierrez MD [address] [place] [phone] Social History Tobacco Use Types Packs/Day Years Used Date Smoking Tobacco: Never Assessed Comments Unknown Sex and Gender Information Value Date Recorded Sex Assigned at Not on file Legal Sex Female 1:57 AM EDT Gender Identity Not on file Sexual Orientation Not on file documented as of this encounter Plan of Treatment Not on file documented as of this encounter Visit Diagnoses Not on filedocumented in this encounter Additional Health Concerns Infection Onset Date Last Indicated Resolved Time COVID-19 - Suspected infection 04/04/2020 04/04/2020 04/04/2020 7:04 PM EST documented as of this encounter Care Teams Mold Mover Relationship Specialty Start Date End Date Jenny Xie 1961 [place], [place] [phone] PCP - General Internal Medicine 05/25/23 documented as of this encounter
--- OUTSIDE RECORDS SUMMARY | 2025-03-07 10:22 | XMS_ITS | Encounter Summary ---
Author Organization [facility] Address [address] [place] [address] Care Team Providers Care Mainframe Consultant Name Role Phone Jenny Xie Primary Care Provider [phone] Encounter Details Date Type Department Care Team (Late st Contact Info) Description 02/10/2016 Orders Only [facility] [address] [place] [address] [phone] Mely Rehman MD [address] [place] [phone] Social History Tobacco Use Types Packs/Day Years [...] documented as of this encounter Care Teams Mainframe Consultant Relationship Specialty Start Date End Date Jenny Xie [address] [place] [address] PCP - General Internal Medicine 05/25/23 documented as of this encounter
--- OUTSIDE RECORDS SUMMARY | 2025-03-07 10:22 | XMS_ITS | Encounter Summary ---
Author Organization [facility] Address [address] [place] [address] Care Team Providers Care Casing In Line Setter Name Role Phone Jenny Xie Primary Care Provider [phone] Encounter Details Date Type Department Care Team (Late st Contact Info) Description 12/26/2024 [employer] Message [facility] [address] [address] Mychart, Generic Provider [address] [place] [phone] [facility] Social History Tobacco Use Types Packs/Day Years [...] Diagnoses Not on filedocumented in this encounter Care Teams Casing In Line Setter Relationship Specialty Start Date End Date Jenny Xie 1961 [place] [address] PCP - General Internal Medicine 05/25/23 documented as of this encounter
--- OUTSIDE RECORDS SUMMARY | 2025-03-07 10:23 | XMS_ITS | Data Portability ---
Author Organization [facility], Main Office Address [address] [place] [address] Care Team Providers Care Passenger Car Cleaning Supervisor Name Role Phone SMILEY LEVINE Primary Care Provider GIL SAMANIEGO Referring Provider SANA WILSON Referring Provider HEBER ALDANA Property Manager SANA WILSON Lumber Salvager Assessment No assessment recorded. Plan of Treatment Reminders Order Date Submit Date Provider Last Modified By Organization Details Last Modified Time Details Appointments None recorded. Lab None recorded. Referral nutritioni st/dietiti an referral 2018 019 abigby Not available 9 15:54:[address]/dietiti an referral 2018 019 abigby Not available 9 15:53:47 primary health organisation manager referral 2018 019 abigby Not available 9 15:54:[address] referral - Patient to schedule 2018 019 abigby Not available 9 15:54:[address]dietiti an referral 2017 018 [email or web address] Not available 8 12:06:39 rheumatolo gist referral - rheumatoid arthritis 2016 017 [email or web address] Oscar Delgado MD, [address], [place], [address], 8 13:33:07 dermatolog ist referral 2016 017 [email or web address] Not available 8 13:33:07 Procedures None recorded. Surgeries None recorded. Imaging None recorded. Medication Orders None recorded. Patient Targets Encounter Date Encounter Id Patient Goals Patient Target Last Modified By Organization Details Last Modified Time 01/04/2018 [id number] Ongoing of Microalbumin/Cre atinine Ratio yearly Not available Not available Not available Ongoing of Blood Pressure 130 / 80 Not available Not available Not available Ongoing of Hemoglobin A1C 2 times per yr Not available Not available Not available Ongoing of Hemoglobin A1C <7 Not available Not available Not available Ongoing of LDL Direct <100 Not available Not available Not available Ongoing of Cholesterol, LDL <100 Not available Not available Not available 01/04/2018 [id number] Pt advised and agrees to do moderate [...] By Organization Details Last Modified Time 01/18/2014 [id number] tendon injury (tendinopathy): care instructions [email or web address] Not available 01/21/2014 08:11:36 shayna's thyroiditis: care instructions [email or web address] Not available 01/21/2014 08:11:36 learning about type 1 diabetes [email or web address] Not available 01/21/2014 08:11:36 type 1 diabetes: care instructions [email or web address] Not available 01/21/2014 08:11:36 rheumatoid arthritis diet: care instructions [email or web address] Not available 01/21/2014 08:11:36 Rheumatoid Arthritis (RA): Care Instructions [email or web address] Not available 01/21/2014 08:11:36 11/19/2016 [id number] learning about type 1 diabetes Not available 11/19/2016 09:30:52 type 1 diabetes: care instructions Not available 11/19/2016 09:30:53 rheumatoid arthritis diet: care instructions Not available 11/19/2016 09:30:52 Rheumatoid Arthritis (RA): Care Instructions Not available 11/19/2016 09:30:52 skin lesions: care instructions Not available 11/19/2016 09:30:52 01/04/2018 [id number] learning about type 1 diabetes [email or web address] Not available 01/04/2018 10:56:13 type 1 diabetes: care instructions [email or web address] Not available 01/04/2018 10:56:13 vitiligo: care instructions pmadden Not available 01/04/2018 10:56:13 Starting a Weight-Loss Plan: Care Instructions [email or web address] Not available 01/04/2018 10:56:13 Nutrition Referral [...] care. [email or web address] Not available 01/04/2018 11:21:50 02/12/2019 [id number] Starting a Weight-Loss Plan: Care Instructions Not available 02/12/2019 15:04:55 Starting a Weight-Loss Plan: Care Instructions Not available 02/12/2019 15:05:18 Cervical Cancer Screening Not available 02/12/2019 15:04:55 02/20/2020 [id number] shayna's thyroiditis: care instructions [email or web address] Not available 02/20/2020 15:32:59 learning about type 1 diabetes [email or web address] Not available 02/20/2020 15:32:59 type 1 diabetes: care instructions [email or web address] Not available 02/20/2020 15:32:59 rheumatoid arthritis diet: care instructions [email or web address] Not available 02/20/2020 15:32:59 Rheumatoid Arthritis (RA): Care Instructions [email or web address] Not available 02/20/2020 15:32:59 Reason for Referral Channel Machine Operator Referral for S kin lesion Referring Physician: Smiley Levine [facility], Encounter Date: 11/19/2016 Range Aid Referral for Rheumatoid arthritis rheumatoid arthritis Referring Physician: Smiley Levine [facility], Encounter Date: 11/19/2016 Retail Area Manager/dietitian Refer ral for Body mass index 30+ - obesity Referring Physician: Roderick Gallegos [facility], Encounter Date: 01/04/2018 Supervising Chef Referral for Sc reening for malignant neoplasm of cervix Patient to schedule Referring Physician: Roderick Gallegos [facility], Encounter Date: 02/12/2019 Director Of Catering Referral for Type 1 diabetes mellitus Referring Physician: Roderick Gallegos [facility], Encounter Date: 02/12/2019 Retail Area Manager/dietitian Refer ral for Obesity Referring Physician: Roderick Gallegos [facility], Encounter Date: 02/12/2019 Retail Area Manager/dietitian Refer ral for Obesity Referring Physician: Roderick Gallegos [facility], Encounter Date: 02/12/2019 Results Created Date Observation Date Name Description Value Unit Range Abnormal Flag Note LastModifiedBy Organization Detail LastModifiedTime 04/03/20 19 04/03/2019 TSH, serum or plasm a hemoglobin A1C 7.5 Not Available [facility] [address], [address], 04/03/2019 10:08:12 04/03/20 19 04/03/2019 TSH, serum or plasm a TSH 0.791 Not Available [facility] [address] [place] [address], [place], [address], 04/03/2019 10:08:12 02/17/20 19 02/16/2019 TSH, serum or plasm a A1C hemoglobin 7.2 Not Available [facility] [address], [place], [address], 02/16/2019 11:53:57 02/17/2002/16/2019 TSH, serum or plasm a TSH 4.193 Not Available [facility] [address], [address], 02/16/2019 11:53:57 02/15/2002/14/2019 TSH, serum or plasm a hemoglobin A1C 7.2 Not Available [facility] [address], [address], 02/14/2019 09:35:09 02/15/2002/14/2019 TSH, serum or plasm a TSH 4.139 Not Available [facility] [address], [address], 02/14/2019 09:35:09 02/14/20 19 07/05/2018 micro album in, urine glucose 194 Not Available Not Availa ble 02/13/2019 13:23:36 02/14/20 19 07/05/2018 micro album in, urine BUN 16 Not Available Not Availa ble 02/13/2019 13:23:36 02/14/2007/05/2018 micro album in, urine creatinine 0.86 Not Available Not Love ilable 02/13/2019 13:23:36 02/14/2007/05/2018 micro album in, urine potassium 4.4 Not Available Not Avai lable 02/13/2019 13:23:36 02/14/2007/05/2018 micro album in, urine sodium 139 Not Available Not Availa ble 02/13/2019 13:23:36 02/14/2007/05/2018 micro album in, urine total cholesterol 175 Not Available Not Available 02/13/2019 13:23:36 02/14/2007/05/2018 micro album in, urine LDL 103 Not Available Not Availa ble 02/13/2019 13:23:36 02/14/20 19 07/05/2018 micro album in, urine hgl 55 Not Available Not Availa ble 02/13/2019 13:23:36 02/14/20 19 07/05/2018 micro album in, urine triglyceride s 85 Not Available Not Available 01/24 13:23:36 02/14/2002/13/2019 micro album in, urine TSH 3.743 Not Available Not Availa ble 02/13/2019 13:23:36 02/14/2002/13/2019 micro album in, urine A1C hemoglobin 9.4 Not Available Not Available 1 13:23:36 02/14/2002/13/2019 micro album in, urine microalbumin 1.0 Not Available Not A vailable 02/13/2019 13:23:36 02/14/20 19 07/05/2018 HbA1c (hemo globi n A1c), blood glucose 194 Not Available Not Availa ble 02/13/2019 11:40:45 02/14/20 19 07/05/2018 HbA1c (hemo globi n A1c), blood BUN 16 Not Available Not Availa ble 02/13/2019 11:40:45 02/14/20 19 07/05/2018 HbA1c (hemo globi n A1c), blood creatinine 0.86 Not Available Not Love ilable 02/13/2019 11:40:45 02/14/20 19 07/05/2018 HbA1c (hemo globi n A1c), blood potassium 4.4 Not Available Not Avai lable 02/13/2019 11:40:45 02/14/20 19 07/05/2018 HbA1c (hemo globi n A1c), blood sodium 139 Not Available Not Availa ble 02/13/2019 11:40:45 02/14/20 19 07/05/2018 HbA1c (hemo globi n A1c), blood total cholesterol 175 Not Available Not Available 02/13/2019 11:40:45 02/14/20 19 07/05/2018 HbA1c (hemo globi n A1c), blood LDL 103 Not Available Not Availa ble 02/13/2019 11:40:45 02/14/20 19 07/05/2018 HbA1c (hemo globi n A1c), blood hgl 55 Not Available Not Availa ble 02/13/2019 11:40:45 02/14/20 19 07/05/2018 HbA1c (hemo globi n A1c), blood triglyceride s 85 Not Available Not Available 01/24 11:40:45 02/14/20 19 02/13/2019 HbA1c (hemo globi n A1c), blood TSH 3.743 Not Available Not Availa ble 02/13/2019 11:40:45 02/14/20 19 02/13/2019 HbA1c (hemo globi n A1c), blood A1C hemoglobin 9.4 Not Available Not Available 1 11:40:45 02/14/20 19 02/13/2019 HbA1c (hemo globi n A1c), blood microalbumin 1.0 Not Available Not A vailable 02/13/2019 11:40:45 07/06/19 19 07/05/2018 lipid panel , serum glucose 194 Not Available Not Availa ble 07/05/2018 10:59:08 07/06/19 19 07/05/2018 lipid panel , serum BUN 16 Not Available Not Availa ble 07/05/2018 10:59:08 07/06/19 19 07/05/2018 lipid panel , serum creatinine 0.86 Not Available Not Love ilable 07/05/2018 10:59:08 07/06/19 19 07/05/2018 lipid panel , serum potassium 4.4 Not Available Not Avai lable 07/05/2018 10:59:08 07/06/19 19 07/05/2018 lipid panel , serum sodium 139 Not Available Not Availa ble 07/05/2018 10:59:08 07/06/19 19 07/05/2018 lipid panel , serum total cholesterol 175 Not Available Not Available 07/05/2018 10:59:08 07/06/19 19 07/05/2018 lipid panel , serum LDL 103 Not Available Not Availa ble 07/05/2018 10:59:08 07/06/19 19 07/05/2018 lipid panel , serum hgl 55 Not Available Not Availa ble 07/05/2018 10:59:08 07/06/19 19 07/05/2018 lipid panel , serum triglyceride s 85 Not Available Not Available 06/23 10:59:08 07/06/19 19 02/13/2019 lipid panel , serum TSH 3.743 Not Available Not Availa ble 07/05/2018 10:59:08 07/06/19 19 02/13/2019 lipid panel , serum A1C hemoglobin 9.4 Not Available Not Available 0 07/05/2018 10:59:08 07/06/19 19 02/13/2019 lipid panel , serum microalbumin 1.0 Not Available Not A vailable 07/05/2018 10:59:08 07/06/19 19 07/05/2018 BMP, serum or plasm a glucose 194 Not Available Not Availa ble 07/05/2018 10:59:08 07/06/19 19 07/05/2018 BMP, serum or plasm a BUN 16 Not Available Not Availa ble 07/05/2018 10:59:08 07/06/19 19 07/05/2018 BMP, serum or plasm a creatinine 0.86 Not Available Not Love ilable 07/05/2018 10:59:08 07/06/19 19 07/05/2018 BMP, serum or plasm a potassium 4.4 Not Available Not Avai lable 07/05/2018 10:59:08 07/06/19 19 07/05/2018 BMP, serum or plasm a sodium 139 Not Available Not Availa ble 07/05/2018 10:59:08 07/06/19 19 07/05/2018 BMP, serum or plasm a total cholesterol 175 Not Available Not Available 07/05/2018 10:59:08 07/06/19 19 07/05/2018 BMP, serum or plasm a LDL 103 Not Available Not Availa ble 07/05/2018 10:59:08 07/06/19 19 07/05/2018 BMP, serum or plasm a hgl 55 Not Available Not Availa ble 07/05/2018 10:59:08 07/06/19 19 07/05/2018 BMP, serum or plasm a triglyceride s 85 Not Available Not Available 06/23 10:59:08 07/06/19 19 02/13/2019 BMP, serum or plasm a TSH 3.743 Not Available Not Availa ble 07/05/2018 10:59:08 07/06/19 19 02/13/2019 BMP, serum or plasm a A1C hemoglobin 9.4 Not Available Not Available 0 07/05/2018 10:59:08 07/06/19 19 02/13/2019 BMP, serum or plasm a microalbumin 1.0 Not Available Not A vailable 07/05/2018 10:59:08 09/03/19 18 09/06/2017 TSH, serum or plasm a Unknown [...] A1c), blood A1C hemoglobin 7.2 Not Available [facility] [place] [facility] [address], [place], [address], 02/15/2019 10:54:15 11/25/19 19 2018 HbA1c (hemo globi n A1c), blood TSH 4.193 Not Available [facility] [place] [facility] [address], [place], [address], 02/15/2019 10:54:15 11/25/19 19 2018 HbA1c (hemo globi n A1c), blood hemoglobin A1C 7.2 Not Available [facility] [place] [facility] [address], [place], [address], 02/13/2019 09:06:04 11/25/19 19 2018 HbA1c (hemo globi n A1c), blood TSH 4.139 Not Available [facility] [place] [facility] [address], [place], [address], 02/13/2019 09:06:04 03/30/20 19 03/30/2019 HbA1c (hemo globi n A1c), blood hemoglobin A1C 7.5 Not Available [facility] (Centralized Electronic Ordering - All Locations) Patient Can Go To The Location Of Their Choice, [id number] 04/02/2019 10:06:04 03/30/20 19 03/30/2019 HbA1c (hemo globi n A1c), blood TSH 0.791 Not Available [facility] (Centralized Electronic Ordering - All Locations) Patient Can Go To The Location Of Their Choice, [id number] 04/02/2019 10:06:04 09/03/19 21 09/02/2020 HbA1c (hemo globi n A1c), blood HGB A1C 6.[address] [facility] [address] [place] [address], [address], 12/25/2020 14:20:18 04/10/20 14 04/10/2014 imagi ng/di agnos tic resul t No observ ation record ed. annika granados Not Available 04/10/2014 17:13:44 09/25/19 15 09/23/2014 imagi ng/di agnos tic resul t No observ ation record ed. annika granados [facility] ([facility] [address] [place], [address], 09/24/2014 19:05:17 03/05/20 16 03/05/2016 XR, chest , 2 view No observ ation record ed. [email or web address] granados [facility] [address] [place], [address], 03/08/2016 11:59:49 09/03/19 18 05/23/2017 pump and meter downl oad and inter preta tion* No observ ation record ed. annika granados Not Available 09/03/2017 22:13:09 Result Notes None recorded. Problems Name Problem SNOMED Code Status Onset Date Resolution Date Notes Provider Name and Address Organization Details Recorded Time Cough 75928474 Completed 01/04/2018 MALA Neal, [facility] 8 10:12:32 Hashimot o thyroidi tis 05305219 Active MICHAEL Devine [address] [facility] [address], [place], [address] , [facility] 5 10:27:43 Irritabl e bowel syndrome 33242345 Active MICHAEL Devine [address] [facility] [address], [place], [address] , [facility] 5 10:27:43 Laborato ry procedur e performe d 307576256 Completed 01/04/2018 MALA Neal [facility] 8 10:12:40 Patient status finding [id number] Completed 01/04/2018 MALA Neal, [facility] 8 10:12:42 Rheumato id tamica s 45402433 Active David Evans, [facility] [address] [facility] [address], [place], [address] , [facility] 5 10:27:43 Screenin g for malignan t neoplasm of colon Completed 01/04/2018 Roderick Gallegos PA-C [address] [facility] [address], [place], [address] , [facility] 8 10:43:32 Type 1 diabetes mellitus 58937069 Active David Evans [facility] [address] [facility] [address], [facility] [place], [address] , [facility] 5 10:27:42 Tendinit is 17722022 Completed 01/04/2018 MALA Neal, [facility] 8 10:12:36 Suspecte d COVID-19 904914997 Completed 10/24/2020 Removal Reason: Problem added by user [email or web address] from the COVID-19 watch flag Anamika Clayton [facility] 1 14:46:47 Administ ration of viral vaccine Completed 200911/06/2013 RECORDED 03/12/20 10 9:20AM BY LORE PERALTA, HISTORIC AL SUMMARY Not Available [facility] 4 14:51:36 Administ ration of poliomye litis vaccine Completed 200911/06/2013 RECORDED 03/12/20 10 9:18AM BY LORE PERALTA, HISTORIC AL SUMMARY Not Available [facility] 4 14:51:36 Infectiv e hepatiti s immuniza tion Completed 200911/06/2013 RECORDED 03/12/20 10 9:12AM BY LORE PERALTA, HISTORIC AL SUMMARY Not Available [facility] 4 14:51:36 Administ ration of diphther ia, pertussi s, and tetanus vaccine Completed 200911/06/2013 RECORDED 03/12/20 10 9:15AM BY PRISCILL A PERALTA, HISTORIC AL SUMMARY Not Available [facility] 4 14:51:36 Administ ration of measles and mumps and rubella vaccine Completed 200911/06/2013 RECORDED 03/12/20 10 9:20AM BY PRISCILL A PERALTA, HISTORIC AL SUMMARY Not Available [facility] 4 14:51:36 Administ ration of viral vaccine Completed 200911/29/2013 RECORDED 03/12/20 10 9:20AM BY PRISCILL A PERALTA, HISTORIC AL SUMMARY Not Available [facility] 4 13:02:09 Administ ration of poliomye litis vaccine Completed 200911/29/2013 RECORDED 03/12/20 10 9:18AM BY PRISCILL A PERALTA, HISTORIC AL SUMMARY Not Available [facility] 4 13:02:09 Infectiv e hepatiti s immuniza tion Completed 200911/29/2013 RECORDED 03/12/20 10 9:12AM BY PRISCILL A PERALTA, HISTORIC AL SUMMARY Not Available [facility] 4 13:02:09 Administ ration of diphther ia, pertussi s, and tetanus vaccine Completed 200911/29/2013 RECORDED 03/12/20 10 9:15AM BY PRISCILL A PERALTA, HISTORIC AL SUMMARY Not Available [facility] 4 13:02:09 Administ ration of measles and mumps and rubella vaccine Completed 200911/29/2013 RECORDED 03/12/20 10 9:20AM BY PRISCILL A PERALTA, HISTORIC AL SUMMARY Not Available [facility] 4 13:02:09 Administ ration of viral vaccine Completed 200911/30/2013 RECORDED 03/12/20 10 9:20AM BY PRISCILL A PERALTA, HISTORIC AL SUMMARY Not Available [facility] 4 03:51:25 Administ ration of poliomye litis vaccine Completed 200911/30/2013 RECORDED 03/12/20 10 9:18AM BY PRISCILL A KATHRYN, HISTORIC AL SUMMARY Not Available [facility] 4 03:51:25 Infectiv e hepatiti s immuniza tion Completed 200911/30/2013 RECORDED 03/12/20 10 9:12AM BY PRISCASTRID A KATHRYN, HISTORIC AL SUMMARY Not Available [facility] 4 03:51:26 Administ ration of diphther ia, pertussi s, and tetanus vaccine Completed 200911/30/2013 RECORDED 03/12/20 10 9:15AM BY PRISCILL A PERALTA, HISTORIC AL SUMMARY Not Available [facility] 4 03:51:26 Administ ration of measles and mumps and rubella vaccine Completed 200911/30/2013 RECORDED 03/12/20 10 9:20AM BY PRISCILL A PERALTA, HISTORIC AL SUMMARY Not Available [facility] 4 03:51:26 Active or passive immuniza tion Completed 201111/06/2013 RECORDED 05/05/19 12 2:22PM BY PRISCILL A KATHRYN, HISTORIC AL SUMMARY Not Available [facility] 4 14:51:36 Active or passive immuniza tion Completed 201111/29/2013 RECORDED 05/05/19 12 2:22PM BY PRISCILL A KATHRYN, HISTORIC AL SUMMARY Not Available [facility] 4 13:02:09 Active or passive immuniza tion Completed 201111/30/2013 RECORDED 05/05/19 12 2:22PM BY PRISCILL A KATHRYN, HISTORIC AL SUMMARY Not Available [facility] 4 03:51:25 Acute bronchit is 19633596 Completed 201211/06/2013 IMPRESSI ON: PRODUCTI VE COUGH, WORSENIG N, HAS DM AND IS ON ENBREL FOR RA, WILL TX WITH ABX DUE TO RISK FACOTRS AND HAVE PT DISCUSS WITH RHEUM ABOUT HOLDING ENBREL; RECORDED 04/28/19 13 10:33AM BY RAMSEY OAKLEY ON/ADDEN DUM Not Available [facility] 4 14:51:35 Administ ration of tetanus vaccine Completed 201211/06/2013 RECORDED 04/28/19 13 10:33AM BY RAMSEY OAKLEY ON/ADDEN DUM Not Available [facility] 4 14:51:36 History of clinical finding in subject 211492988 Completed 201211/06/2013 RECORDED 04/28/19 13 10:33AM BY RAMSEY OAKLEY ON/ADDEN DUM Not Available [facility] 4 14:51:37 Acute bronchit is 29074049 Completed 201211/29/2013 IMPRESSI ON: PRODUCTI VE COUGH, WORSENIG N, HAS DM AND IS ON ENBREL FOR RA, WILL TX WITH ABX DUE TO RISK FACOTRS AND HAVE PT DISCUSS WITH RHEUM ABOUT HOLDING ENBREL; RECORDED 04/28/19 13 10:33AM BY RAMSEY OAKLEY ON/ADDEN DUM Not Available [facility] 4 13:02:08 Administ ration of tetanus vaccine Completed 201211/29/2013 RECORDED 04/28/19 13 10:33AM BY RAMSEY OAKLEY ON/ADDEN DUM Not Available [facility] 4 13:02:09 History of clinical finding in subject 934527811 Completed 201211/29/2013 RECORDED 04/28/19 13 10:33AM BY RAMSEY OAKLEY ON/ADDEN DUM Not Available [facility] 4 13:02:09 Acute bronchit is 70498738 Completed 201211/30/2013 IMPRESSI ON: PRODUCTI VE COUGH, WORSENIG N, HAS DM AND IS ON ENBREL FOR RA, WILL TX WITH ABX DUE TO RISK FACOTRS AND HAVE PT DISCUSS WITH RHEUM ABOUT HOLDING ENBREL; RECORDED 04/28/19 13 10:33AM BY RAMSEY OAKLEY ON/ADDEN DUM Not Available [facility] 4 03:51:25 Administ ration of tetanus vaccine Completed 201211/30/2013 RECORDED 04/28/19 13 10:33AM BY RAMSEY OAKLEY ON/ADDEN DUM Not Available [facility] 4 03:51:26 History of clinical finding in subject 823451174 Completed 201211/30/2013 RECORDED 04/28/19 13 10:33AM BY RAMSEY OAKLEY ON/ADDEN DUM Not Available [facility] 4 03:51:26 Type 2 diabetes mellitus without complica tion 592004041 Completed 201211/06/2013 RECORDED 05/11/19 13 1:27PM BY RAMSEY OAKLEY ON/ADDEN DUM Not Available [facility] 4 14:51:35 Type 2 diabetes mellitus without complica tion 182459418 Completed 201211/29/2013 RECORDED 05/11/19 13 1:27PM BY RAMSEY OAKLEY ON/ADDEN DUM Not Available [facility] 4 13:02:08 Type 2 diabetes mellitus without complica tion 097438757 Completed 201211/30/2013 RECORDED 05/11/19 13 1:27PM BY RAMSEY OAKLEY ON/ADDEN DUM Not Available [facility] 4 03:51:25 Patient status finding [id number] Completed 201311/06/2013 RECORDED 05/25/19 14 1:31PM BY MARIA DE JESUS ORTIZ MA, RAMSEY ON/ADDEN DUM Rosanna Odom MA [facility], [facility] 8 10:12:42 Cough 06688294 Completed 201311/06/2013 IMPRESSI ON: PERSISTA NT, OUT OF WORK TX BELOW; RECORDED 05/25/19 14 1:31PM BY MARIA DE JESUS ORTIZ MA, RAMSEY ON/ADDEN DUM Rosanna Odom MA [facility] 8 10:12:32 Dysfunct ional uterine bleeding Completed 201311/06/2013 IMPRESSI ON: PT HAD BEENO N CONTROL STARTED WITH NIGHT SWEATS AND OTHER SYMPTOMS , AND SAW 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 THEN [facility] [place] IN [facility] AND WAS DX WITH PREMATUR E [...] ORTIZ MA, ANNOTATI ON/ADDEN DUM Not Available [facility] 4 14:51:35 Influenz a vaccine needed [id number] 06 Completed 201311/06/2013 RECORDED 05/25/19 14 1:31PM BY MARIA DE JESUS ORTIZ MA, ANNOTATI ON/ADDEN DUM Not Available [facility] 4 14:51:35 Adult health examinat ion Completed 201311/06/2013 IMPRESSI ON: PT IS 8 WEEKS , IS DOING WELL, 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, WAS FOLLOWED AT HIGH RISK AT [facility] FOR IVF; RECORDED 05/25/19 14 1:31PM BY MARIA DE JESUS ORTIZ MA, MONYATI ON/ADDEN DUM Not Available [facility] 4 14:51:36 Follow-u p encounte r Completed 201311/06/2013 RECORDED 05/25/19 14 1:31PM BY MARIA DE JESUS ORTIZ MA, ANNOTATI ON/ADDEN DUM Not Available [facility] 4 14:51:36 Ovarian failure [id number] Completed 201311/06/2013 RECORDED 05/25/19 14 1:31PM BY MARIA DE JESUS ORTIZ MA, ANNOTATI ON/ADDEN DUM Not Available [facility] 4 14:51:37 Patient status finding [id number] Completed 201311/29/2013 RECORDED 05/25/19 14 1:31PM BY MARIA DE JESUS ORTIZ MA, ANNOTATI ON/ADDEN DUM MALA Neal [place] [facility] 8 10:12:42 Dysfunct ional uterine bleeding Completed 201311/29/2013 IMPRESSI ON: PT HAD BEENO N CONTROL STARTED WITH NIGHT SWEATS AND OTHER SYMPTOMS , AND SAW 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 THEN INFERTIL JEWEL DOC IN [facility] AND WAS DX WITH PREMATUR E [...] ORTIZ MA, RAMSEY ON/ADDEN DUM Not Available [facility] 4 13:02:08 Influenz a vaccine needed [id number] 06 Completed 201311/29/2013 RECORDED 05/25/19 14 1:31PM BY MARIA DE JESUS ORTIZ MA, ANNOTATI ON/ADDEN DUM Not Available [facility] 4 13:02:08 Adult health examinat ion Completed 201311/29/2013 IMPRESSI ON: PT IS 8 WEEKS , IS DOING WELL, 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[employer] 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, WAS FOLLOWED AT HIGH RISK AT [facility] FOR IVF; RECORDED 05/25/19 14 1:31PM BY MARIA DE JESUS ORTIZ MA, ANNOTATI ON/ADDEN DUM Not Available [facility] 4 13:02:08 Follow-u p encounte r Completed 201311/29/2013 RECORDED 05/25/19 14 1:31PM BY MARIA DE JESUS ORTIZ MA, ANNOTATI ON/ADDEN DUM Not Available [facility] 4 13:02:08 Ovarian failure [id number] Completed 201311/29/2013 RECORDED 05/25/19 14 1:31PM BY MARIA DE JESUS ORTIZ MA, ANNOTATI ON/ADDEN DUM Not Available [facility] 4 13:02:09 Patient status finding [id number] Completed 201311/30/2013 RECORDED 05/25/19 14 1:31PM BY MARIA DE JESUS ORTIZ MA, ANNOTATI ON/ADDEN DUM Rosanna Odom MA null, MALA - [facility] 8 10:12:42 Dysfunct ional uterine bleeding Completed 201311/30/2013 IMPRESSI ON: PT HAD BEENO N CONTROL STARTED WITH NIGHT SWEATS AND OTHER SYMPTOMS , AND SAW [employer] 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 THEN INFERTIL ITY DOC IN [facility] AND WAS DX WITH PREMATUR E [...] ORTIZ MA, RAMSEY ON/ADDEN DUM Not Available [facility] 4 03:51:25 Influenz a vaccine needed [id number] 06 Completed 201311/30/2013 RECORDED 05/25/19 14 1:31PM BY MARIA DE JESUS ORTIZ MA, MONYATI ON/ADDEN DUM Not Available [facility] 4 03:51:25 Adult health examinat ion Completed 201311/30/2013 IMPRESSI ON: PT IS 8 WEEKS , IS DOING WELL, 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[employer] 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, WAS FOLLOWED AT HIGH RISK AT [facility] FOR IVF; RECORDED 05/25/19 14 1:31PM BY MARIA DE JESUS ORTIZ MA, MONYATI ON/ADDEN DUM Not Available [facility] 4 03:51:25 Follow-u p encounte r Completed 201311/30/2013 RECORDED 05/25/19 14 1:31PM BY MARIA DE JESUS ORTIZ MA, ANNOTATI ON/ADDEN DUM Not Available [facility] 4 03:51:25 Ovarian failure [id number] Completed 201311/30/2013 RECORDED 05/25/19 14 1:31PM BY MARIA DE JESUS ORTIZ MA, ANNOTATI ON/ADDEN DUM Not Available [facility] 4 03:51:26 Problem Notes None recorded. Procedures Surgical History Date Name Laterality Status Provider Name and Address Organization Details Recorded Time 02/13/20 19 Diabetic Foot Exam (Monofilament) completed Teresa Gallegos PA-C [address] [address], [place], [address], [facility] 02/12/2019 15:24:35 12/25/19 19 Date of Last Pap Smear completed Abraham Monk MA [facility] 02/20/2020 14:53:32 05/01/19 10 Date of Last Colonoscopy completed Rosanna Odom MA [facility] 01/04/2018 10:15:13 05/01/19 10 Colonoscopy completed Rosanna Odom MA [facility] 01/04/2018 10:15:02 Tonsillectomy completed Abraham Monk MA [facility] 01/18/2014 14:37:34 Other completed Abraham Monk MA [facility] 01/18/2014 14:42:13 Imaging Results None recorded. Procedure Notes None recorded. Medical Equipment None [...] 04/28/19 13 10:37AM BY ABRAHAM MONK, OFFICE VISIT;AR TC FOR DROWSINE SS Not Available Not Available Not Available [facility] in .09/21 (21) 1.5 mg-30 mcg tablet QD active [...] Pulse oximetry Heart rate Body temperature Systolic And Diastolic Provider Name and Address Organization Details Last Updated DateTime 7 78693.6 2 g 33.3 kg/m2 162.56 cm 98 % 98 % 83 /min 98.6 [degF] 117/65 mm[Hg] Abraham Monk MA [facility] 7 08:48:51 Date Recorded Body height Body mass index (BMI) Body weight Heart rate Oxygen saturation Oxygen saturation in Arterial blood by Pulse oximetry Body temperature Systolic And Diastolic Provider Name and Address Organization Details Last Updated DateTime 8 162.56 cm 36.2 kg/m2 62950.9 9 g 74 /min 98 % 98 % 98.6 [degF] 118/80 mm[Hg] [facility] 8 10:20:05 Date Recorded Oxygen saturation Oxygen saturation in Arterial blood by Pulse oximetry Body weight Heart rate Body mass index (BMI) Body height Body temperature Systolic And Diastolic Provider Name and Address Organization Details Last Updated DateTime 4 99 % 99 % 76426.0 37327 g 78 /min 29.6 kg/m2 162.56 cm 98.1 [degF] 119/68 mm[Hg] Abraham Monk MA [facility] 4 14:53:05 Date Recorded Body height Body mass index (BMI) Body weight Heart rate Body temperature Oxygen saturation Oxygen saturation in Arterial blood by Pulse oximetry Systolic And Diastolic Provider Name and Address Organization Details Last Updated DateTime 9 162.56 cm 34.2 kg/m2 72602.8 8 g 90 /min 97.3 [degF] 98 % 98 % 108/70 mm[Hg] Rosanna Odom MA [facility] 9 14:45:20 Date Recorded Body height Oxygen saturation Oxygen saturation in Arterial blood by Pulse oximetry Heart rate Body temperature Body mass index (BMI) Body weight Systolic And Diastolic Provider Name and Address Organization Details Last Updated DateTime 0 162.56 cm 98 % 98 % 87 /min 98.42 [degF] 31.6 kg/m2 26964.7 g 123/71 mm[Hg] Abraham Monk MA [facility] 0 14:47:28 Social History Question Answer Notes LastModified by Organizat ion Details LastModified Time Tobacco Smoking Status Never Smoker Abraham Monk MA [facility] 01/18/2014 14:42:04 Do You Have An Advance Directive? No [email or web address] Information not available 01/18/2014 Animal Exposure? No Informat ion not available 01/18/2014 Do You Wear A Helmet When Biking? No [email or web address] Information not available 01/18/2014 Is Blood Transfusion Acceptable In An Emergency? Yes [email or web address] Information not available 01/18/2014 What Is Your Level Of Caffeine Consumption? Occasional [email or web address] Information not available 01/18/2014 How Much Tobacco Do You Chew? None [email or web address] Information not available 01/18/2014 What Type Of Diet Are You Following? REGULAR [email or web address] Information not available 01/18/2014 Which Illicit Or Recreational Drugs Have You Used? None Information not available 01/04/2018 Education Post Graduate [email or web address] Information not available 01/18/2014 Have There Been Any Changes To Your Family Or Social Situation? No [email or web address] Information no t available 01/18/2014 How Many Days In The Past Year Have You Had A Heavy Drinking Consumption (4+ Female, 5+ Male)? 0 [email or web address] Information no t available 01/18/2014 Are There Any Guns Present In Your Home? No [email or web address] Information not available 01/18/2014 Legally Blind In One Or Both Eyes? No [email or web address] Information no t available 01/18/2014 Live Alone Or With Others? With Others Information not available 02/12/2019 Do You Take Precautions To Prevent Distracted Driving? Yes [email or web address] Information not available 11/19/2016 How Often Do You Need To Have Someone Help You When You Read Instructions, Pamphlets, Or Other Written Material From Your Doctor Or Pharmacy? Never Information not available 01/04/2018 Have You Served In The ? No Information not available 11/19/2016 Have You Or Anyone In Your Household Had Any Of The Following Symptoms In The Last 14 Days: Sore Throat, Cough, Chills, Body Aches For Unknown Reasons, Shortness Of Breath For Unknown Reasons, Loss Of Smell, Loss Of Taste, Fever At Or Greater Than 100 Degrees Fahrenheit? No [email or web address] Information not available 02/20/2020 Are You Or Anyone In Your Household A Health Care Provider Or Emergency Responder? Yes [email or web address] Information not available 02/20/2020 To The Best Of Your Knowledge Have You Been In Close Proximity To Any Individual Who Tested Positive For COVID-19? No [email or web address] Information not available 02/20/2020 Marital Status Domestic Partner [email or web address] Information not available 01/18/2014 What Was The Date Of Your Most Recent Tobacco Screening? 01/04/2018 Information not available 11/16/2018 How Many Children Do You Have? 2 [email or web address] Information not available 11/19/2016 Do You Use Protection During Sex? No [email or web address] Information not available 01/18/2014 Difficulty Reading? No [email or web address] Information not available 01/18/2014 What Is Your Relationship Status? Domestic Partner [email or web address] Information not available 01/18/2014 Seat Belts Used Routinely Yes [email or web address] Information not available 01/18/2014 Are You Sexually Active? Yes [email or web address] Information not available 01/18/2014 Smoke Alarm In Home Yes Information not available 01/04/2018 At What Age Did You Start Smoking Tobacco? 0 Information not available 01/04/2018 Are You Passively Exposed To Smoke? No Information no t available 01/04/2018 How Much Tobacco Do You Smoke? No Information not available 01/04/2018 Do You Use Sunscreen Routinely? Yes [email or web address] Information not available 01/18/2014 How Many Years Have You Smoked Tobacco? 0 Information not available 01/04/2018 Do You Have Difficulty Walking Or Climbing Stairs? No [email or web address] Information not available 01/18/2014 Sex: Unknown Functional Status Question Answer Note LastModified by Organizat ion Details LastModified Time Do you use any illicit or recreational drugs? No [email or web address] Information not available 01/18/2014 What is your level of alcohol consumption? Occasional [email or web address] Information not available 01/18/2014 Do you or have you ever used smokeless tobacco? Never used smokeless tobacco Information not available 02/12/2019 Are you currently employed? Yes [email or web address] Information not available 01/18/2014 [address]iculty [address] at night? No [email or web address] Information no t available 01/18/2014 Are you able to care for yourself independently? 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 No [email or web address] Information not available 01/18/2014 Do you or have you ever used e-cigarettes or vape? Never used electronic cigarettes Information not available 02/12/2019 What is your exercise level? Occasional [email or web address] Information not available 01/18/2014 Mental Status Question Answer Note LastModified by Organization D etails LastModified Time Do you have difficulty concentrating, remembering or making decisions? No [email or web address] Information no t available 01/18/2014 Family History Relationship Description Onset Age of this Age Resolved Age Notes LastModified by Organization Details LastModified Time Father Diabetes mellitus Not available 01/18 14:40:46 Brother Diabetes mellitus [email or web address] Not available 01/18 14:40:46 Mother Hypertensive disorder [email or web address] Not available 01/18 14:40:46 Notes:No colon or breast can cer Medical History Condition Response Coronary Artery Disease N Other N Gout N Kidney Stones N Blood Diseases N Hyperthyroidism N Breast Cancer N mrsa exposure N COPD N Depression N Lung Disease N Hypothyroidism Y Defects or Inherited Disease N Developmental or Behavioral Disorders N Breast Problem N Anesthesia Complications N Headaches/Migraines N Varicose Veins N Anxiety Disorder N Muscle, Joint, or Bone Problems N Obesity N Vision or Eye Problems N Arthritis N Head Injury/Concussion N Polyps N Infertility N Mental Disorder N Congenital Anomalies N Acid Reflux (GERD) N Cancer N Stroke N ADHD N Endometriosis N High Cholesterol N Liver Disease N Fibromyalgia N Headaches N Kidney Disease N Heart Problems N [...] Eczema N Diverticulitis N Abuse/Domestic Violence N Allergies N Asthma N Reflux/GERD N Hepatitis N Heart Disease N Pulmonary Embolism N Hypertension N Osteoporosis N Chicken Pox N Autism Spectrum Disorder (ASD) N Gynecological History Statement/Question Response Abnormal Pap [...] Influenza, split virus, quadrivalent, preservative 9 completed MALA Neal [facility] 02/12/2019 14:38:43 Influenza, split virus, quadrivalent, preservative 0 completed MALA Oakley [facility] 02/20/2020 14:49:54 Hep B, adult 8 completed Not Available [facility] 11/06/2013 13:40:31 Hep B, adult 9 completed Not Available [facility] 11/06/2013 13:40:31 Hep B, adult 1 completed Not Available [facility] 11/06/2013 13:40:31 DTaP 1 completed Not Available [facility] 11/06/2013 13:40:31 DTaP 1 completed Not Available [facility] 11/06/2013 13:40:31 DTaP 2 completed Not Available [facility] 11/06/2013 13:40:31 DTaP 3 completed Not Available [facility] 11/06/2013 13:40:31 DTaP 6 completed Not Available [facility] 11/06/2013 13:40:31 Td (adult), 2 Lf tetanus toxoid, preservative free, adsorbed 6 completed Not Available [facility] 11/06/2013 13:40:31 IPV 1 completed Not Available [facility] 11/06/2013 13:40:31 IPV 1 completed Not Available [facility] 11/06/2013 13:40:31 IPV 2 completed Not Available [facility] 11/06/2013 13:40:31 IPV 6 completed Not Available [facility] 11/06/2013 13:40:32 MMR 2 completed Not Available [facility] 11/06/2013 13:40:32 MMR 2 completed Not Available [facility] 11/06/2013 13:40:32 HPV, quadrivalent 6 completed Not Available [facility] 11/06/2013 13:40:32 HPV, quadrivalent 7 completed Not Available [facility] 11/06/2013 13:40:32 HPV, quadrivalent 7 completed Not Available [facility] 11/06/2013 13:40:32 Influenza, split virus, trivalent, preservative 1 completed Not Available [facility] 11/06/2013 13:40:32 pneumococcal polysaccharide PPV23 1 completed Not Available [facility] 11/06/2013 13:40:32 Tdap 6 completed Not Available [facility] 11/06/2013 13:40:32 Influenza, split virus, trivalent, preservative 2 completed Not Available [facility] 11/06/2013 13:40:32 Tdap 3 completed Not Available [facility] 11/06/2013 13:40:32 Past Encounters Encounter ID Performer Location Encounter Start Date Encounter Closed Date Diagnosis/Indication Diagnosis SNOMED-CT Code Diagnosis ICD10 Code Diagnosis IMO Codes Diagnosis Note [id number] [employer]Comm erce [address] [facility] [place] [address] 03/23/2010 00:00:00 [id number] autoEComm erce [address] [facility] [place] [address] 07/08/2010 00:00:00 [id number] auto[employer]Comm erce [address] [facility] [place] [address] 04/27/2011 00:00:00 [id number] autoEComm erce [address] [facility] [place] [address] 04/28/2012 00:00:00 [id number] auto[employer]Comm erce [address] [facility] [place] [address] 09/11/2013 00:00:00 [id number] Smiley hobson MD Main Office [address] [facility] [address] [facility] [place] [address] 01/18/2014 14:33:24 01/18/2014 15:15:24 Adult health examination 805340337 pt will get flu shot at work next month, knows to get early in season due to DM and enbrel tx Type 1 deidre betes mellitus 04086512 Shayna thyroiditis 42766517 Rheumatoid arthritis 11466734 Tendinitis 52630280 bilate ral wrists form picking up baby, change motion, ice, adn if not better to rheumatolo gy for injecitons or braces [id number] Smiley hobson MD Main Office [address] [facility] [address] [facility] [place] [address] 11/19/2016 08:37:01 11/19/2016 09:31:09 Adult health examination 479820754 Z00.00 utd o screening care in [place] Skin lesion 85970776 L98 .9 hypopigmen jessica pacheco since , new to pt, pt to se tup derm appt in [place] Rheumatoid arthritis 698 28109 M06.9 was on Enbrel, off for , will transfer locally to osito gy, pt to make the appt Type 1 deidre betes mellitus 09094128 E10.9 followed closely by endo (actually works with the docs) adjusting diet and insulin [id number] Roderick Gallegos PA-C Main Office [address] [facility] [address] [facility] [address] 01/04/2018 09:58:30 01/04/2018 10:57:54 Adult health examination 062656383 Z00.00 seen by brake operator helper earlier today will get flu shot at work all labs done by endo in .18 - will f/u c endo in next 1-2 months, anticipate will get f/u labs done at that time as well Needs infl uenza immunization 470163361 Z23 pt will get at work later this month Skin lesion 97431498 L98 .9 cont f/u c derm - vitiligo Rheumatoid arthritis 698 08287 M06.9 pt did not make rheum eval locally last yr, no jt pain lately so declines referral today, can see rheum at [facility] prn Type 1 deidre betes mellitus 93828656 E10.9 followed closely by endo (actually works with the docs) adjusting diet and insulin to have eye exam later today Shayna thyroiditis 21 368304 E06.3 cont to f/u c endo Vitiligo 92359566 L80 cont f/u c derm Body mass index 30+ - obesity 315160901 Z68.36 has potential access to nutrition at [facility] [id number] Quinton Cross MD Main Office [address] [facility] [address] [facility] [place] [address] 02/12/2019 14:32:31 02/12/2019 15:19:52 Adult health examination 966373123 Z00.00 t flu shot at work all labs done by endo in June and A1c was repeated during the summer - will f/u c endo as scheduled. Screening for malignant neoplasm of cervix 935761087 Z12.4 Type 1 deidre betes mellitus 61363441 E10.9 followed closely by amalia (actually works with the docs) adjusting diet and insulin, on insulin pump and as of late on Trulicity for weight control Rheumatoid arthritis 698 10286 M06.9 pt did not make rheum eval locally last yr, no jt pain lately so declines referral today, can see rheum at [facility] Shayna thyroiditis 21 864658 E06.3 cont to f/u c amalia Obesity 927630859 E66.9 Z68.30 [id number] Smiley hobson MD Main Office [address] [facility] [address] [facility] [address] 02/20/2020 14:29:55 02/20/2020 15:42:45 Adult health examination 438668543 Z00.00 utd on screening care in [place] Shayna thyroiditis 21 183108 E06.3 endo follows Rheumatoid arthritis 698 26944 M06.9 I advised pt to set up a visit with her rheum doc in [place] to see if he agrees she can stay off the Enbrel. Type 1 deidre betes mellitus 61602481 E10.9 followed closely by amalia (actually works with the docs) adjusting diet and insulin Health Concerns Section Related Observation LastModified by Organization Detai ls LastModified Time None Recorded Concern Status LastModified by Organization Details LastModified Time None Recorded Advance Directives Directive N: Payers Insurance Date Sequence Insurance Name Policy Number Policy Sawyer Covered Member ID Sawyer Member ID Guarantor Name 05/24/2023 1 [facility] MICKIE [id number] Collette Kenyon [id number] Collette Kenyon Notes Date Note Type Note Provider Name and Address Organization Details Recorded Time 01/18/2014 text/html Pt is here for a PE. she is diong well, all her screening is utd, DM well controlled Smiley rodriguez MA [facility] 01/19/2014 21:30:49 11/19/2016 text/html Generic HPI TemplateReported by Patient Pt is here for an annual PE. She is in her first trimester, has type 1 DM, is followed by all her care in [place]. SHe notes her last A1C was a bit high at 8.4 but is working on adjusting her diet, was also having some lows, now on very low carb diet. Smiley NoelEneidarick aracelis rodriguez, [facility] 11/19/2016 09:33:40 01/04/2018 text/html Generic HPI TemplateReported by Patient here for annual pe. Smiley rodriguez, [facility] 01/04/2018 11:22:00 02/12/2019 text/html Generic HPI TemplateReported by [email or web address] year old female for annual PE. 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 Pt. has h/o abnormal Pap Smears and prior colposcopies . HPV positive. NO prior h/o mammograms. NO family h/o breast cancer.Vaccies are up to date.RA. Nonsymptomatic. Have not been taking meds since the . Used to take Enbrel.Shayna's thyroiditis with hypothyroidism is followed by amalia.BMI is 34. PT. kis on Trulicity now and lost 11 lbs so far.Exercise--- Here and there. Diet--- restricting carbs.Nonsmoker. ETOH-- occasional.Type I DM without complications. Labs stable in June. Diabetic control improved on insulin pump. Pt. is also on Trulicity for weight and lost 11 lbs. Last diabetic eye exam was earlier today. Pt. denies foot pain or numbness. BP is normal. ROS as noted in the HPI Teresa Gallegos PA-C [address] [address], [place], [address], [place] [facility] 02/12/2019 15:30:28 02/20/2020 text/html Generic HPI TemplateReported by Patient PT is here for a PE. 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 PT with Type 1 DM, doing well with pump, endo in [place] where she works treats her and gets all labs. Not on med for RA, wa on Enbrel up until last 2.5 years ago, off since, denies any joint symptoms, has not sen her rheum doc to discuss if staying off is ok Smiley hsu [place], [place] - [facility] 02/20/2020 15:33:51 OBGyn Episode No OBEpisode recorded.
--- OUTSIDE RECORDS SUMMARY | 2025-03-07 10:23 | XMS_ITS | Encounter Summary ---
Author Organization [facility] Address [address] [place] [address] Care Team Providers Care Actuarial Science Teacher Name Role Phone Jenny Xie Primary Care Provider [phone] Encounter Details Date Type Department Care Team (Late st Contact Info) Description 02/12/2016 Orders Only [facility] [address] [place] [address] [id number] Anthony Gutierrez MD [address] [place] [id number] Social History Tobacco Use Types Packs/Day Years [...] documented as of this encounter Care Teams Actuarial Science Teacher Relationship Specialty Start Date End Date Jenny Xie 1961 [place], [place] [phone] PCP - General Internal Medicine 05/25/23 documented as of this encounter
== END 2025-03-07 09:47 | disposition home or self-care (01) ==
LOC: HO.HMCC 09:12
PROVIDERS: PCP Internal Medicine; Visit Provider Internal Medicine
DX: Z00.00 Encounter for general adult medical examination without abnormal findings (principal); I10 Essential (primary) hypertension; E10.9 Type 1 diabetes mellitus without complications; E03.9 Hypothyroidism, unspecified

== ENCOUNTER → 2025-03-07 09:12 | Outpatient (BNVA) | payer BC, SELFPAY | PROVIDERS: PCP Internal Medicine; Visit Provider Internal Medicine | DX: Z00.00 Encounter for general adult medical examination without abnormal findings (principal); I10 Essential (primary) hypertension; E10.9 Type 1 diabetes mellitus without complications; E03.9 Hypothyroidism, unspecified | CPT/HCPCS: 96127 ==

== ENCOUNTER 2025-04-11 10:53 | Outpatient (AMB) | payer BC, SELFPAY ==
--- NOTE | 2025-04-11 10:57 | MHC.PC.OV ---
Vital Signs 04/11/25 10:58 Height 5 ft 3 in Weight 229 lb BMI 40.6 BP 120/82 Blood Pressure Location Lt brachial Position Sitting Respiration 17 Pulse 68 Pulse Source Pulse Oximeter Pulse Oximetry (%) 99 Oxygen Delivery Method Room Air Intake Visit Reasons: PAP Intake Note: Pt is here today for a pap. Allergies semaglutide (From Ozempic) Adverse Reaction (Intermediate, Verified 04/11/25 10:58) Blurry Vision dulaglutide (From Trulicity) Adverse Reaction (Unverified 04/11/25 10:58) abd pain Medication List - Last Reconciled 04/11/25 by Jenny Xie MD estradiol 1 mg PO DAILY insulin lispro (Humalog U-100 Insulin) subcut levothyroxine 125 mcg PO DAILY lisinopril 5 mg PO DAILY progesterone micronized mg PO rosuvastatin 5 mg PO DAILY Tobacco use date assessed: 04/11/25 Dental Screening Dental Screen Date: 03/07/25 HPI PAP HPI Details Patient presents for follow-up and Pap smear. Patient reports well controlled insulin-dependent diabetes and is established with policy director at [facility] Medical History (Updated 04/11/25 @ 11:38 by Jenny Xie MD) Postmenopausal Microalbuminuria Annual physical exam HPV (human papilloma virus) infection Hypothyroid Tiffanie's disease DM type 1 (diabetes mellitus, type 1) HTN (hypertension) Surgical History Hx of colonoscopy Hx of tonsillectomy Hx of section Family History Father Type 1 diabetes mellitus Brother Type 1 diabetes mellitus ALL (acute lymphoblastic leukemia) Mother HTN (hypertension) Social History Household Members Other:: , 3 children, (11-6). 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 1. Little interest or pleasure in doing things: not at all 2. Feeling down, depressed, or hopeless: not at all 3. Trouble falling or staying asleep, or sleeping too much: not at all 4. Feeling tired or having little energy: several days 5. Poor appetite or overeating: not at all 6. Feeling bad about yourself - or that you are a failure or have let yourself or your family down: not at all 7. Trouble concentrating on things, such as reading the newspaper or watching television: not at all 8. Moving or speaking so slowly that other people could have noticed. Or the opposite - being so fidgety or restless that you have been moving around a lot more than usual: not at all 9. Thoughts that you would be better off or of hurting yourself in some way: not at all Total score: 1 Depression Screening Interpretation: Negative Depression Screening Done: Yes Source: Developed by Drs. Simone Waldrop, Ashish Webster and colleagues, with an educational felicia from [employer]. Thrive Questionnaire Date Thrive assessed: 03/04/25 I am a: Patient What is your living situation today?: I have a steady place to live Within the past 12 months, did the food you bought not last and you didn't have the money to get more?: Never true Within the past 12 months, did you worry whether your food would run out before you got money to buy more?: Never true Do you have trouble paying for medicines?: No Do you have trouble getting transportation to medical appointments?: No Do you have trouble paying your heating and electricity bill?: No Do you have trouble taking care of your child, family member or friend?: No Do you have trouble with day-to-day activities such as bathing, preparing meals, shopping, managing finances, etc.?: No Are you currently unemployed and looking for a job?: No Are you interested in more education?: No Please select the resources that you would like help with: None Currently or been in a relationship where the following occur: No concerns reported THRIVE Score: 0 ROSA-7 AMB Questionnaire ROSA-7 Date ROSA - 7 assessed: 03/07/25 Source: Developed by Drs. Simone Waldrop, Ashish Webster and colleagues, with an educational felicia from [employer]. Review of Systems Const All systems reviewed & are unremarkable except as noted in HPI and below Eyes Reports no additional complaints ENT Reports no additional complaints Card Reports no additional complaints Resp Reports no additional complaints GI Reports no additional complaints Reports no additional complaints Physical exam (Primary Care) Vital Signs: Last Vital Signs Pulse 68 04/11/25 10:58 Resp 17 04/11/25 10:58 BP 120/82 04/11/25 10:58 Pulse Ox 99 04/11/25 10:58 Oxygen Delivery Method Room Air 04/11/25 10:58 BMI result Body Mass Index 40.6 Tobacco/Smoking Status: Tobacco use Status Tobacco use date assessed 04/11/25 04/11/25 11:01 Patient Tobacco Use Status Never used Tobacco 04/11/25 11:01 e-Cigarette/Vaping Use Never Used 04/11/25 11:01 PHQ-9: PHQ-9 Score PHQ-9: Total score 1 04/11/25 11:01 Depression Screening Interpretation: Negative Thrive Assessment: Date of Thrive Assessment Date Thrive assessed 03/04/25 04/11/25 11:01 Currently or been in a relationship where the following occur: No concerns reported Const General: no acute distress HENMT Face and sinus: Yes normal facial exam Resp Effort & Inspection: normal respiratory effort Auscultation: clear to auscultation bilaterally Cardio Rhythm: regular rhythm Heart sounds: S1 normal heart sound present and S2 normal heart sound present GI Inspection: Yes normal to inspection Palpation (GI): Soft to palpation External Female Exam: normal external appearance Speculum Exam - Vagina: normal appearance of the vagina Speculum Exam - Cervix: normal appearance of the cervix Bimanual exam- vagina & uterus: normal bimanual exam Coding Level of Care Code Est Pt Level 4 (98037) Diagnoses Postmenopausal Z78.0 DM type 1 (diabetes mellitus, type 1) E10.9 HTN (hypertension) I10 Microalbuminuria R80.9 Assessment & Plan Assessment & Plan (1) Postmenopausal: Comment: on HRT by Endo Code(s): Z78.0 - Asymptomatic menopausal state Category: Medical Plan: Pap smear was done today. DEXA will be scheduled for history of early menopause (2) DM type 1 (diabetes mellitus, type 1): Comment: X 20yrs, f/u [facility] , recent A1C 7.3 01/04/2024, intolerant to Trulicity and Ozempic Code(s): E10.9 - Type 1 diabetes mellitus without complications Category: Medical Plan: Follow-up with endocrinology at [facility]. Patient will have fasting blood work including A1c (3) HTN (hypertension): Code(s): I10 - Essential (primary) hypertension Category: Medical Plan: Increase lisinopril to 10 mg a day check comprehensive panel in 2 weeks and follow-up in 2 months (4) Microalbuminuria: Code(s): R80.9 - Proteinuria, unspecified Category: Medical Plan: Increase lisinopril to 10 mg a day monitor microalbuminuria Orders: Orders XR DEXA axial skeleton Today Z78.0 - Asymptomatic menopausal state Comprehensive [place]. Panel Fast 2 Weeks E10.9 - Type 1 diabetes mellitus without complications, I10 - Essential (primary) hypertension, R80.9 - Proteinuria, unspecified Hemoglobin A1c 2 Weeks E10.9 - Type 1 diabetes mellitus without complications, I10 - Essential (primary) hypertension, R80.9 - Proteinuria, unspecified Pap Smear Today Z00.00 - Encounter for general adult medical examination without abnormal findings Lipid Panel 2 Weeks E10.9 - Type 1 diabetes mellitus without complications, I10 - Essential (primary) hypertension, R80.9 - Proteinuria, unspecified Microalbumin, Random (w Creat) 2 Weeks E10.9 - Type 1 diabetes mellitus without complications, I10 - Essential (primary) hypertension, R80.9 - Proteinuria, unspecified TSH reflex Free T4 2 Weeks E10.9 - Type 1 diabetes mellitus without complications, I10 - Essential (primary) hypertension, R80.9 - Proteinuria, unspecified Vitamin D 25-OH Total 2 Weeks E10.9 - Type 1 diabetes mellitus without complications, I10 - Essential (primary) hypertension, R80.9 - Proteinuria, unspecified Complete Blood Count Auto Diff 2 Weeks E10.9 - Type 1 diabetes mellitus without complications, I10 - Essential (primary) hypertension, R80.9 - Proteinuria, unspecified Medications: New lisinopril 10 mg PO DAILY 90 tabs 1RF Discontinued lisinopril Discontinued Reason: Doctor's Order 5 mg PO DAILY 90 tabs 3RF
[2025-04-11 10:58] VITALS: BP 120/82; PULSE 68; RESP 17; O2SAT 99; BMI 40.6
--- OUTSIDE RECORDS SUMMARY | 2025-04-11 14:02 | XMS_ITS | Encounter Summary ---
Author Organization [facility] Address [address] [place] [address] Care Team Providers Care Finger Buff Sewer Name Role Phone Jenny Xie Primary Care Provider [phone] Encounter Details Date Type Department Care Team (Late st Contact Info) Description 12/26/2024 Surphacehart Message [facility] [address] [id number] Mychart, Generic Provider [address] [place] [id number] [facility] Social History Tobacco [...] on filedocumented in this encounter Care Teams Finger Buff Sewer Relationship Specialty Start Date End Date Jenny Xie 1961 [place] [address] PCP - General Internal Medicine 05/25/23 documented as of this encounter
--- OUTSIDE RECORDS SUMMARY | 2025-04-11 14:02 | XMS_ITS | Encounter Summary ---
Author Organization [facility] Address [address] [place] [address] Care Team Providers Care Oil Processing Technician Name Role Phone Jenny Xie Primary Care Provider [phone] Encounter Details Date Type Department Care Team (Late st Contact Info) Description 06/17/2016 Orders Only [facility] Building [address] [place] [address] [phone] Anthony Gutierrez MD [address] [place] [phone] Social History Tobacco Use Types Packs/Day Years [...] documented as of this encounter Care Teams Oil Processing Technician Relationship Specialty Start Date End Date Jenny Xie 1961 [place], [place] [phone] PCP - General Internal Medicine 05/25/23 documented as of this encounter
--- OUTSIDE RECORDS SUMMARY | 2025-04-11 14:02 | XMS_ITS | Encounter Summary ---
Author Organization [facility] Address [address] [place] [address] Care Team Providers Care Night Order Selector Name Role Phone Jenny Xie Primary Care Provider [phone] Encounter Details Date Type Department Care Team (Late st Contact Info) Description 02/12/2016 Orders Only [facility] Building [address] [place] [address] [phone] Anthony Gutierrez MD [address] [place] [phone] Social History Tobacco Use Types Packs/Day Years [...] documented as of this encounter Care Teams Night Order Selector Relationship Specialty Start Date End Date Jenny Xie 1961 [place], [place] [phone] PCP - General Internal Medicine 05/25/23 documented as of this encounter
--- OUTSIDE RECORDS SUMMARY | 2025-04-11 14:02 | XMS_ITS | Encounter Summary ---
Author Organization [facility] Address [address] [place] [address] Care Team Providers Care Field Identification Specialist Name Role Phone Jenny Xie Primary Care Provider [phone] Encounter Details Date Type Department Care Team (Late st Contact Info) Description 02/10/2016 Orders Only [facility] Building [address] [place] [address] [phone] Mely Rehman MD [address] [place] [phone] Social History Tobacco Use Types Packs/Day Years [...] documented as of this encounter Care Teams Field Identification Specialist Relationship Specialty Start Date End Date Jenny Xie 1961 [place] [address] PCP - General Internal Medicine 05/25/23 documented as of this encounter
--- OUTSIDE RECORDS SUMMARY | 2025-04-11 14:02 | XMS_ITS | Clinical Summary ---
Author Organization [facility] Address [address] [place] [address] Care Team Providers Care Amusement Park Ride Mechanic Name Role Phone Jenny Xie Primary Care Provider [phone] Medications * This document contains information received [...] N.P.; Started 29-Jul-2010 Active 07/30/19 11 Active insulin lispro injection 100 units/mL vial USE IN INSULIN PUMP DIRECTED, UP TO 100 UNITS DAILY 90 mL 3 5 8:18 AM EST 05/18/19 25 026 Active rosuvastatin (CRESTOR) 5 [...] total) by mouth daily. 90 tablet 3 5 8:18 AM EST 02/12/20 25 Active blood-glucose sensor (Dexcom G7 Sensor) device Change sensor every 10 days. 9 each 3 5 8:18 AM EST 02/12/20 25 Active lisinopriL (PRINIVIL,ZESTRIL ) 5 mg tablet Take 1 tablet (5 mg total) by mouth daily. 90 tablet 3 03/15/20 25 Active metFORMIN (GLUCOPHAGE) 500 mg tablet [...] Type Department Care Team Description 02/11/2025 [address]ill [facility] [address] [place], [place] [phone] Manual Lathe Operator: Anthony Rodriguez MD from Last 3 Months Immunizations Immunization Administration [...] 04/25/2011 04/25/2010, 09/10/2003 Pap Smear 07/19/2014 07/20/2011, 09/11/2010, 05/14/2010, Additional history exists Cervical Cancer Screening [...] 06/15/2023, 0 08/18/2022, 09/02/2020, Additional history exists COVID-19 Vaccine (2024-2 6 season) 2024 03/13/2021, 06/11/2020, 05/21/2020 Hemoglobin A1C 01/03/2025 07/03/2024, 12/24, 06/15/2023, Additional history exists Basic Metabolic Panel 07/03/2025 07/03/2024 , 03/21/2024, 01/04/2024, Additional history exists Hepatitis B Vaccines Completed 04/01/2001, 11/25/1998, 05/22/1997 Hepatitis C Screening Completed 12/14/2011, 009 Influenza Vaccine Completed 02/28/2025, , 01/24/2023, Additional history exists Procedures * Due to [place] state law, this organization might not be [...] to Health Maintenance Results * Due to [place] state law, this organization might not be sharing negative HIV tests. * (ABNORMAL) Hemoglobin A1c (07/03/2024 8:08 AM EDT) Hemoglobin A1C 8.5(H) <5.7 % of total Hgb 07/03/2024 6:19 PM EDT [facility] Comment: For someone without known diabetes, a [...] (MG/DL) 197 mg/dL 07/03/2024 6:19 PM EDT [facility] eAG (MMOL/L) 10.9 mmol/L 07/03/2024 6:19 PM EDT [facility] Blood Structure of peripheral vein / Unknown Venipuncture / Unknown 07/03/2024 8:08 AM EDT 07/03/2024 8:59 AM EDT [facility] - 07/03/2024 6:19 PM EDT [facility] Received Date: Anthony Gutierrez MD LAB BLOOD ORDERABLES Final Resu lt [facility] [address], [place] [address], [place] [phone] [employer] [facility] [address], [place] [address], [place] [phone] * (ABNORMAL) Comprehensive Metabolic Panel (07/03/2024 8:08 AM EDT) NA 142 135 - 145 mmol/L 07/03/2024 9:37 AM EDT [facility] K 4.3 3.5 - 5.3 mmol/L 07/03/2024 9:37 AM EDT [facility] Cl 105 98 - 107 mmol/L 07/03/2024 9:37 AM EDT [facility] CO2 25 22 - 32 mmol/L 07/03/2024 9:37 AM EDT [facility] Anion Gap 12 5 - 15 07/03/2024 9:37 AM EDT [facility] Glucose 145(H) 65 - 99 mg/dL 07/03/2024 9:37 AM EDT [facility] Creatinine 0.91 0.50 - 1.20 mg/dL 07/03/2024 9:37 AM EDT [facility] Calcium 8.7 8.6 - 10.5 mg/dL 07/03/2024 9:37 AM EDT [email or web address] Total Protein 7.0 6.0 - 8.0 g/dL 07/03/2024 9:37 AM EDT [facility] Albumin 4.1 3.5 - 5.2 g/dL 07/03/2024 9:37 AM EDT [facility] Bilirubin, Total 0.3 0.2 - 1.2 mg/dL 07/03/2024 9:37 AM EDT [email or web address] Alkaline Phosphatase 59 35 - 129 U/L 07/03/2024 9:37 AM EDT [facility] AST 24 10 - 40 U/L 07/03/2024 9:37 AM EDT [facility] ALT 19 10 - 40 U/L 07/03/2024 9:37 AM EDT [facility] BUN 19 7 - 23 mg/dL 07/03/2024 9:37 AM EDT [facility] eGFR 80 >=60 mL/min/1. 73m2 07/03/2024 9:37 AM EDT [facility] Comment:The estimated glomer ular [...] - 4.2 g/dL 07/03/2024 9:37 AM EDT [facility] A/G Ratio 1.4(L) 1.5 - 3.0 07/03/2024 9:37 AM EDT [facility] Blood Structure of peripheral vein / Unknown Venipuncture / Unknown 07/03/2024 8:08 AM EDT 07/03/2024 8:59 AM EDT us Anthony Gutierrez MD LAB BLOOD ORDERABLES Final Resu lt [facility] [address] [place] [address], [place] * Microalbumin, Random Urine with Creatinine (06/15/2023 3:17 PM EST) Microalbumin, Urine <1.0 mg/dL 06/15/2023 5:12 PM EST [email or web address] Creatinine, Urine 165 15 - 278 mg/dL 06/15/2023 5:12 PM EST [email or web address] Microalb/Creat Ratio, Random Urine 06/15/2023 5:12 PM EST [email or web address] Comment: < 1.0 mcg/mgCr Microalbumin Reference Range: Normal <30 mcg/mg Creatinine Microalbuminuria 30-300 mcg/mg Creatinine Clinical Albuminuria >300 mcg/mg Creatinine Reference: ADA Guideline. Diabetes Care. 2004;27 (suppl 1) Urine Voided urine specimen / Unknown Non-Blood Collection / Unknown 06/15/2023 3:17 PM EST 06/15/2023 3:28 PM EST Anthony Gutierrez MD LAB URINE ORDERABLES Final Resu lt [facility] [address] [place] [address], [place] * HM Eye Exam, Diabetic (01/07/2018) Unknown Provider HEALTH MAINTENANCE Final Res ult * HEPATITIS C ANTIBODY, CONVERSION (12/14/2011 8:02 AM EDT) Hepatitis C Antibody <0.02 <1.00 [facility] HCV Interpretation Negative [facility] Comment: Not infected with HCV, unless recent infection is suspected or other evidence exists to indicate HCV infection. 12/14/2011 8:02 AM EDT 12/14/2011 10:08 AM EDT us Aleida Yanes MD LAB HISTORICAL RESULTS Final R esult Performing Organization Address City/[facility]/ZIP Co de Phone Number [facility] [address] [place] [address], [place] * Pap w/HPV (07/20/2011 9:11 AM EDT) Path Procedure HPV (219247) 1 [id number] TPGAS ([id number]) 1 Edited by: [id number] - 1220 BW-[id number] - 1548 RED [facility] PATHOLOG[facility] - [facility] Specimen Labeled As: 1 CERVICAL/ENDOCERVI RUMA CYTO MATERIAL - Edited by: [id number] [facility] - [facility] Additional Test Information Specimens were tested for high risk HPV using the FDA approved Digene Hybrid Capture II kit, in the Diagnostic Molecular Oncology Lab at [facility]. This test can detect HPV high risk [...] abnormality. We endorse the recommendations of the [place] Society for Colposcopy and Cervical Pathology for [...] high complexity clinical laboratory testing. Edited by: [id number] - 1220 BW-SCRPT6 [facility] - [facility] Diagnosis Thinprep Pap Test Adequacy: Satisfactory for evaluation Interpretation: EPITHELIAL CELL ABNORMALITY - SQUAMOUS Low Grade Squamous Intraepithelial Lesion This Pap test was examined by the ThinPrep Imaging System, [employer], [place], [place]. - High risk HPV DNA subtypes: POSITIVE Edited by: [id number] - 122 BW-SCRPT6 [id number] - 6230 MACGREGD [facility]AT[facility] PATHOLOGY - [facility] Gynecologic Clinical Data Specimen source:, THINPREP (CERVICAL AND ENDOCERVICAL) [facility] PATHOLOG[facility] - [facility] Gynecologic Clinical Data First date of LMP:, not given [facility] Pathology Codes Client Order Code:, [email or web address] [facility] - [facility] Pathology Codes Bill Type:, 3RD LIBERTARIAN BILLING [facility] PATHOLOG[facility] - [facility] Data Sent To Pathologist SENT TO PATHOLOGIST ON 07/23/11 AT 1420 Edited by: [id number] - 2437 JOSE ENRIQUE [facility]OLOG[facility] - [facility] Completed Report CYTOPATH; EMPLOYEE BENEFITS SPECIALIST PHYSICIAN INT 1 CYTOPATH C/V AUTORESCR SCR 1 [facility] PATH[facility] - [facility] Marker 1 ECA,EPITHELIAL CELL ABNORMALITIES [facility] ANATOM[facility] PATHOLOGY - [facility] Marker 2 [facility] ANATOMIC PATHOLOGY - [facility] Marker 3 LGSIL,CT LGSIL [facility] ANATOM[facility] PATHOLOGY - [facility] Marker 4 PHPV,POSITIVE HPV [facility] - [facility] Marker 5 RIM,RECEIVED IN MOLECULAR [facility] ANATOM[facility] PATHOLOGY - [facility] Marker 6 EVANGELINA PRATER [facility] Cc Results To BHAVANA GREENE [id number] [facility] - [facility] Signature REPORT SIGNED: PATRICK MORALES MD 07/23/11 [facility] - [facility] Sign Out Audit PATRICK MORALES MD [id number] FINAL Y [place] [id number] [facility] PATHOLOG[facility] - [facility] Cytology / Unknown 2 9:11 AM EDT 07/21/2011 9:11 AM EDT us Yue Loving [facility] LAB HISTORICAL RESULTS Fin al Result [facility] [address] [place] [address], from Last 3 Months or Most Recently Relevant to Health Maintenance Insurance [facility] HMO/POS Care Teams Amusement Park Ride Mechanic Relationship Specialty Start Date End Date Jenny Xie 1961 [place] [address] PCP - General Internal Medicine 05/25/23
== END 2025-04-11 11:46 | disposition home or self-care (01) ==
LOC: HO.HMCC 10:54
PROVIDERS: PCP Internal Medicine; Visit Provider Internal Medicine
DX: Z78.0 Asymptomatic menopausal state (principal); E10.9 Type 1 diabetes mellitus without complications; I10 Essential (primary) hypertension; R80.9 Proteinuria, unspecified

== ENCOUNTER 2025-04-11 10:53 | Outpatient (REF) | payer BC, SELFPAY ==
--- OUTSIDE RECORDS SUMMARY | 2025-04-11 18:20 | XMS_ITS | Data Portability ---
Author Organization [facility], Main Office Address [address] [place] [address] Care Team Providers Care Farmworker Grain Name Role Phone SMILEY LEVINE Primary Care Provider GIL SAMANIEGO Referring Provider [phone] SANA WILSON Referring Provider [phone] HEBER ALDANA Handle Finisher SANA WILSON Parliamentary Librarian Assessment No assessment recorded. Plan of Treatment Reminders Order Date Submit Date Provider Last Modified By Organization Details Last Modified Time Details Appointments None recorded. Lab None recorded. Referral nutritioni st/dietiti an referral 2018 019 abigby Not available 9 15:54:[address]/dietiti an referral 2018 019 abigby Not available 9 15:53:47 landscape foreman referral 2018 019 abigby Not available 9 15:54:[address] referral - Patient to schedule 2018 019 abigby Not available 9 15:54:[address]dietiti an referral 2017 018 [email or web address] Not available 8 12:06:39 rheumatolo gist referral - rheumatoid arthritis 2016 017 [email or web address] Oscar Delgado MD, [address], [place], [address], 8 13:33:07 dermatolog ist referral 2016 017 [email or web address] Not available 8 13:33:07 Procedures None recorded. Surgeries None recorded. Imaging None recorded. Medication Orders None recorded. Patient Targets Encounter Date Encounter Id Patient Goals Patient Target Last Modified By Organization Details Last Modified Time 01/04/2018 [id number] Ongoing of Microalbumin/Cre atinine Ratio yearly Not [...] Not available Not available Not available 01/04/2018 160000 Pt advised and agrees to do moderate [...] By Organization Details Last Modified Time 01/18/2014 [id number] tendon injury (tendinopathy): care instructions [email or web address] Not available 01/21/2014 08:11:36 shayna's thyroiditis: care instructions [email or web address] Not available 01/21/2014 08:11:36 learning about type 1 diabetes [email or web address] Not available 01/21/2014 08:11:36 type 1 diabetes: care instructions [email or web address] Not available 01/21/2014 08:11:36 rheumatoid arthritis diet: care instructions [email or web address] Not available 01/21/2014 08:11:36 Rheumatoid Arthritis (RA): Care Instructions [email or web address] Not available 01/21/2014 08:11:36 11/19/2016 [id number] learning about type 1 diabetes Not available 11/19/2016 09:30:52 type 1 diabetes: care instructions Not available 11/19/2016 09:30:53 rheumatoid arthritis diet: care instructions Not available 11/19/2016 09:30:52 Rheumatoid Arthritis (RA): Care Instructions Not available 11/19/2016 09:30:52 skin lesions: care instructions Not available 11/19/2016 09:30:52 01/04/2018 [id number] learning about type 1 diabetes [email or web address] Not [...] care. [email or web address] Not available 01/04/2018 11:21:50 02/12/2019 [id number] Starting a Weight-Loss Plan: Care Instructions Not available 02/12/2019 15:04:55 Starting a Weight-Loss Plan: Care Instructions Not available 02/12/2019 15:05:18 Cervical Cancer Screening Not available 02/12/2019 15:04:55 02/20/2020 [id number] shayna's thyroiditis: care instructions [email or web address] Not available 02/20/2020 15:32:59 learning about type 1 diabetes [email or web address] Not available 02/20/2020 15:32:59 type 1 diabetes: care instructions [email or web address] Not available 02/20/2020 15:32:59 rheumatoid arthritis diet: care instructions [email or web address] Not available 02/20/2020 15:32:59 Rheumatoid Arthritis (RA): Care Instructions [email or web address] Not available 02/20/2020 15:32:59 Reason for Referral Armature Tester Referral for S kin lesion Referring Physician: Simley Levine [facility], Encounter Date: 11/19/2016 Registry Rn Referral for Rheumatoid arthritis rheumatoid arthritis Referring Physician: Smiley Levine [facility], Encounter Date: 11/19/2016 Video Game Producer/dietitian Refer ral for Body mass index 30+ - obesity Referring Physician: Roderick Gallegos [facility], Encounter Date: 01/04/2018 Special Diet Cook Referral for Sc reening for malignant neoplasm of cervix Patient to schedule Referring Physician: Roderick Gallegos [facility], Encounter Date: 02/12/2019 Wellness Instructor Referral for Type 1 diabetes mellitus Referring Physician: Roderick Gallegos [facility], Encounter Date: 02/12/2019 Video Game Producer/dietitian Refer ral for Obesity Referring Physician: Roderick Gallegos [facility], Encounter Date: 02/12/2019 Video Game Producer/dietitian Refer ral for Obesity Referring Physician: Roderick Gallegos [facility], Encounter Date: 02/12/2019 Results Created Date Observation Date Name Description Value Unit Range Abnormal Flag Note LastModifiedBy Organization Detail LastModifiedTime 04/03/20 19 04/03/2019 TSH, serum or plasm a hemoglobin A1C 7.5 Not Available [facility] [address], [address], 04/03/2019 10:08:12 04/03/20 19 04/03/2019 TSH, serum or plasm a TSH 0.791 Not Available [facility] [address] [address], [place], [address], 04/03/2019 10:08:12 02/17/20 19 02/16/2019 TSH, serum or plasm a A1C hemoglobin 7.2 Not Available [facility] [address], [place], [address], 02/16/2019 11:53:57 02/17/2002/16/2019 TSH, serum or plasm a TSH 4.193 Not Available [facility] [address], [address], 02/16/2019 11:53:57 02/15/2002/14/2019 TSH, serum or plasm a hemoglobin A1C 7.2 Not Available [facility] [address], [address], 02/14/2019 09:35:09 02/15/2002/14/2019 TSH, serum or plasm a TSH 4.139 Not Available [facility] [address], [address], 02/14/2019 09:35:09 02/14/20 19 07/05/2018 micro album [...] A1C hemoglobin 7.2 Not Available [facility] [place] [facility] [address], [place], [address], 02/15/2019 10:54:15 11/25/19 19 2018 HbA1c (hemo globi n A1c), blood TSH 4.193 Not Available [facility] [place] [facility] [address], [place], [address], 02/15/2019 10:54:15 11/25/19 19 2018 HbA1c (hemo globi n A1c), blood hemoglobin A1C 7.2 Not Available [facility] [place] [facility] [address], [place], [address], 02/13/2019 09:06:04 11/25/19 19 2018 HbA1c (hemo globi n A1c), blood TSH 4.139 Not Available [facility] [place] [facility] [address], [place], [address], 02/13/2019 09:06:04 03/30/20 19 03/30/2019 HbA1c (hemo globi n A1c), blood hemoglobin A1C 7.5 Not Available [facility] (Centralized Electronic Ordering - All Locations) Patient Can Go To The Location Of Their Choice, [address] 04/02/2019 10:06:04 03/30/20 19 03/30/2019 HbA1c (hemo globi n A1c), blood TSH 0.791 Not Available [facility] (Centralized Electronic Ordering - All Locations) Patient Can Go To The Location Of Their Choice, [address] 04/02/2019 10:06:04 09/03/19 21 09/02/2020 HbA1c (hemo globi n A1c), blood HGB A1C 6.8 Not Available [facility] [address] [place] [address], [address], 12/25/2020 14:20:18 04/10/20 14 04/10/2014 imagi ng/di agnos tic resul t No observ ation record ed. annika granados Not Available 04/10/2014 17:13:44 09/25/19 15 09/23/2014 imagi ng/di agnos tic resul t No observ ation record ed. annika granados [facility] (Ct) [address] [place], [address], 09/24/2014 19:05:17 03/05/20 16 03/05/2016 XR, chest , 2 view No observ ation record ed. adrieldanielledillan granados [facility] ([facility]) [address] [place], [address], 03/08/2016 11:59:49 09/03/19 18 05/23/2017 pump and meter downl oad and inter preta tion* No observ ation record ed. annika granados Not Available 09/03/2017 22:13:09 Result Notes None recorded. Problems Name Problem SNOMED Code Status Onset Date Resolution Date Notes Provider Name and Address Organization Details Recorded Time Cough 58740378 Completed 01/04/2018 MALA Neal, [facility] 8 10:12:32 Hashimot o thyroidi tis 31806109 Active MICHAEL Devine [address], [place], [address] , [facility] 5 10:27:43 Irritabl e bowel syndrome 01220455 Active MICHAEL Devine [address], [place], [address] , [facility] 5 10:27:43 Laborato ry procedur e performe d 750207966 Completed 01/04/2018 MALA Neal [facility] 8 10:12:40 Patient status finding [id number] Completed 01/04/2018 MALA Neal, [facility] 8 10:12:42 Rheumato id tamica s 60288788 Active David Evans, [facility] [address], [place], [address] , [facility] 5 10:27:43 Screenin g for malignan t neoplasm of colon Completed 01/04/2018 Roderick Gallegos PA-C [address], [place], [address] , [facility] 8 10:43:32 Type 1 diabetes mellitus 62723084 Active David Evans [facility] [address], [facility] [place], [address] , [facility] 5 10:27:42 Tendinit is 73679931 Completed 01/04/2018 MALA Neal, [facility] 8 10:12:36 Suspecte d COVID-19 651843419 Completed 10/24/2020 Removal Reason: Problem added by user [email or web address] from the COVID-19 watch flag Anamika Clayton [facility] 1 14:46:47 Administ ration of viral vaccine Completed 200911/06/2013 RECORDED 03/12/20 10 9:20AM BY LORE PERALTA, HISTORIC AL SUMMARY Not Available [facility] 4 14:51:36 Administ ration of poliomye litis vaccine Completed 200911/06/2013 RECORDED 03/12/20 10 9:18AM BY LORE PERALTA, HISTORIC AL SUMMARY Not Available [facility] 4 14:51:36 Infectiv e hepatiti s immuniza tion Completed 200911/06/2013 RECORDED 03/12/20 10 9:12AM BY LORE PERALTA, HISTORIC AL SUMMARY Not Available [facility] 4 14:51:36 Administ ration of diphther ia, pertussi s, and tetanus vaccine Completed 200911/06/2013 RECORDED 03/12/20 10 9:15AM BY PRISCILL A PERALTA, HISTORIC AL SUMMARY Not Available [facility] 4 14:51:36 Administ ration of measles and mumps and rubella vaccine Completed 200911/06/2013 RECORDED 03/12/20 10 9:20AM BY PRISCILL A PERALTA, HISTORIC AL SUMMARY Not Available [facility] 4 14:51:36 Administ ration of viral vaccine Completed 200911/29/2013 RECORDED 03/12/20 10 9:20AM BY PRISCILL A PERALTA, HISTORIC AL SUMMARY Not Available [facility] 4 13:02:09 Administ ration of poliomye litis vaccine Completed 200911/29/2013 RECORDED 03/12/20 10 9:18AM BY PRISCILL A PERALTA, HISTORIC AL SUMMARY Not Available [facility] 4 13:02:09 Infectiv e hepatiti s immuniza tion Completed 200911/29/2013 RECORDED 03/12/20 10 9:12AM BY PRISCILL A PERALTA, HISTORIC AL SUMMARY Not Available [facility] 4 13:02:09 Administ ration of diphther ia, pertussi s, and tetanus vaccine Completed 200911/29/2013 RECORDED 03/12/20 10 9:15AM BY PRISCILL A PERALTA, HISTORIC AL SUMMARY Not Available [facility] 4 13:02:09 Administ ration of measles and mumps and rubella vaccine Completed 200911/29/2013 RECORDED 03/12/20 10 9:20AM BY PRISCILL A PERALTA, HISTORIC AL SUMMARY Not Available [facility] 4 13:02:09 Administ ration of viral vaccine Completed 200911/30/2013 RECORDED 03/12/20 10 9:20AM BY PRISCILL A PERALTA, HISTORIC AL SUMMARY Not Available [facility] 4 03:51:25 Administ ration of poliomye litis vaccine Completed 200911/30/2013 RECORDED 03/12/20 10 9:18AM BY PRISCILL A KATHRYN, HISTORIC AL SUMMARY Not Available [facility] 4 03:51:25 Infectiv e hepatiti s immuniza tion Completed 200911/30/2013 RECORDED 03/12/20 10 9:12AM BY PRISCASTRID A KATHRYN, HISTORIC AL SUMMARY Not Available [facility] 4 03:51:26 Administ ration of diphther ia, pertussi s, and tetanus vaccine Completed 200911/30/2013 RECORDED 03/12/20 10 9:15AM BY PRISCILL A PERALTA, HISTORIC AL SUMMARY Not Available [facility] 4 03:51:26 Administ ration of measles and mumps and rubella vaccine Completed 200911/30/2013 RECORDED 03/12/20 10 9:20AM BY PRISCILL A PERALTA, HISTORIC AL SUMMARY Not Available [facility] 4 03:51:26 Active or passive immuniza tion Completed 201111/06/2013 RECORDED 05/05/19 12 2:22PM BY PRISCILL A KATHRYN, HISTORIC AL SUMMARY Not Available [facility] 4 14:51:36 Active or passive immuniza tion Completed 201111/29/2013 RECORDED 05/05/19 12 2:22PM BY PRISCILL A KATHRYN, HISTORIC AL SUMMARY Not Available [facility] 4 13:02:09 Active or passive immuniza tion Completed 201111/30/2013 RECORDED 05/05/19 12 2:22PM BY PRISCILL A KATHRYN, HISTORIC AL SUMMARY Not Available [facility] 4 03:51:25 Acute bronchit is 60874140 Completed 201211/06/2013 IMPRESSI ON: PRODUCTI VE COUGH, WORSENIG N, HAS DM AND IS ON ENBREL FOR RA, WILL TX WITH ABX DUE TO RISK FACOTRS AND HAVE PT DISCUSS WITH RHEUM ABOUT HOLDING ENBREL; RECORDED 04/28/19 13 10:33AM BY RAMSEY OAKLEY ON/ADDEN DUM Not Available [facility] 4 14:51:35 Administ ration of tetanus vaccine Completed 201211/06/2013 RECORDED 04/28/19 13 10:33AM BY RAMSEY OAKLEY ON/ADDEN DUM Not Available [facility] 4 14:51:36 History of clinical finding in subject 426699152 Completed 201211/06/2013 RECORDED 04/28/19 13 10:33AM BY RAMSEY OAKLEY ON/ADDEN DUM Not Available [facility] 4 14:51:37 Acute bronchit is 92791179 Completed 201211/29/2013 IMPRESSI ON: PRODUCTI VE COUGH, WORSENIG N, HAS DM AND IS ON ENBREL FOR RA, WILL TX WITH ABX DUE TO RISK FACOTRS AND HAVE PT DISCUSS WITH RHEUM ABOUT HOLDING ENBREL; RECORDED 04/28/19 13 10:33AM BY RAMSEY OAKLEY ON/ADDEN DUM Not Available [facility] 4 13:02:08 Administ ration of tetanus vaccine Completed 201211/29/2013 RECORDED 04/28/19 13 10:33AM BY RAMSEY OAKLEY ON/ADDEN DUM Not Available [facility] 4 13:02:09 History of clinical finding in subject 620080511 Completed 201211/29/2013 RECORDED 04/28/19 13 10:33AM BY RAMSEY OAKLEY ON/ADDEN DUM Not Available [facility] 4 13:02:09 Acute bronchit is 52375494 Completed 201211/30/2013 IMPRESSI ON: PRODUCTI VE COUGH, WORSENIG N, HAS DM AND IS ON ENBREL FOR RA, WILL TX WITH ABX DUE TO RISK FACOTRS AND HAVE PT DISCUSS WITH RHEUM ABOUT HOLDING ENBREL; RECORDED 04/28/19 13 10:33AM BY RAMSEY OAKLEY ON/ADDEN DUM Not Available [facility] 4 03:51:25 Administ ration of tetanus vaccine Completed 201211/30/2013 RECORDED 04/28/19 13 10:33AM BY RAMSEY OAKLEY ON/ADDEN DUM Not Available [facility] 4 03:51:26 History of clinical finding in subject 896887790 Completed 201211/30/2013 RECORDED 04/28/19 13 10:33AM BY RAMSEY OAKLEY ON/ADDEN DUM Not Available [facility] 4 03:51:26 Type 2 diabetes mellitus without complica tion 403374868 Completed 201211/06/2013 RECORDED 05/11/19 13 1:27PM BY RAMSEY OAKLEY ON/ADDEN DUM Not Available [facility] 4 14:51:35 Type 2 diabetes mellitus without complica tion 178893951 Completed 201211/29/2013 RECORDED 05/11/19 13 1:27PM BY RAMSEY OAKLEY ON/ADDEN DUM Not Available [facility] 4 13:02:08 Type 2 diabetes mellitus without complica tion 098559365 Completed 201211/30/2013 RECORDED 05/11/19 13 1:27PM BY RAMSEY OAKLEY ON/ADDEN DUM Not Available [facility] 4 03:51:25 Patient status finding 907846505 Completed 201311/06/2013 RECORDED 05/25/19 14 1:31PM BY MARIA DE JESUS ORTIZ MA, RAMSEY ON/ADDEN DUM Rosanna Odom MA [facility], [facility] 8 10:12:42 Cough 41359920 Completed 201311/06/2013 IMPRESSI ON: PERSISTA NT, OUT OF WORK TX BELOW; RECORDED 05/25/19 14 1:31PM BY MARIA DE JESUS ORTIZ MA, RAMSEY ON/ADDEN DUM Rosanna Odom MA [facility] 8 10:12:32 Dysfunct ional uterine bleeding Completed 201311/06/2013 IMPRESSI ON: PT HAD BEENO N CONTROL STARTED WITH NIGHT SWEATS AND OTHER SYMPTOMS , AND SAW INTERNAL COMMUNICATIONS SPECIALIST THEN INFERTIL JEWEL [place] IN [facility] AND WAS DX WITH PREMATUR E [...] ORTIZ MA, ANNOTATI ON/ADDEN DUM Not Available [facility] 4 14:51:35 Influenz a vaccine needed [id number] 06 Completed 201311/06/2013 RECORDED 05/25/19 14 1:31PM BY MARIA DE JESUS ORTIZ MA, ANNOTATI ON/ADDEN DUM Not Available [facility] 4 14:51:35 Adult health examinat ion Completed 201311/06/2013 IMPRESSI ON: PT IS 8 WEEKS , IS DOING WELL, 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INTERNAL COMMUNICATIONS SPECIALIST, WAS FOLLOWED AT H[facility] RISK AT [facility] FOR IVF; RECORDED 05/25/19 14 1:31PM BY MARIA DE JESUS ORTIZ MA, MONYATI ON/ADDEN DUM Not Available [facility] 4 14:51:36 Follow-u p encounte r Completed 201311/06/2013 RECORDED 05/25/19 14 1:31PM BY MARIA DE JESUS ORTIZ MA, ANNOTATI ON/ADDEN DUM Not Available [facility] 4 14:51:36 Ovarian failure 442286789 Completed 201311/06/2013 RECORDED 05/25/19 14 1:31PM BY MARIA DE JESUS ORTIZ MA, ANNOTATI ON/ADDEN DUM Not Available [facility] 4 14:51:37 Patient status finding 396110685 Completed 201311/29/2013 RECORDED 05/25/19 14 1:31PM BY MARIA DE JESUS ORTIZ MA, ANNOTATI ON/ADDEN DUM MALA Neal [place] [facility] 8 10:12:42 Dysfunct ional uterine bleeding Completed 201311/29/2013 IMPRESSI ON: PT HAD BEENO N CONTROL STARTED WITH NIGHT SWEATS AND OTHER SYMPTOMS , AND SAW INTERNAL COMMUNICATIONS SPECIALIST THEN INFERTIL JEWEL DOC IN [facility] AND WAS DX WITH PREMATUR E [...] ORTIZ MA, RAMSEY ON/ADDEN DUM Not Available [facility] 4 13:02:08 Influenz a vaccine needed 70734196287 06 Completed 201311/29/2013 RECORDED 05/25/19 14 1:31PM BY MARIA DE JESUS ORTIZ MA, ANNOTATI ON/ADDEN DUM Not Available [facility] 4 13:02:08 Adult health examinat ion Completed 201311/29/2013 IMPRESSI ON: PT IS 8 WEEKS , IS DOING WELL, 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INTERNAL COMMUNICATIONS SPECIALIST, WAS FOLLOWED AT HIGH RISK AT [place] FOR IVF; RECORDED 05/25/19 14 1:31PM BY MARIA DE JESUS ORTIZ MA, ANNOTATI ON/ADDEN DUM Not Available [facility] 4 13:02:08 Follow-u p encounte r Completed 201311/29/2013 RECORDED 05/25/19 14 1:31PM BY MARIA DE JESUS ORTIZ MA, ANNOTATI ON/ADDEN DUM Not Available [facility] 4 13:02:08 Ovarian failure 089879100 Completed 201311/29/2013 RECORDED 05/25/19 14 1:31PM BY MARIA DE JESUS ORTIZ MA, ANNOTATI ON/ADDEN DUM Not Available [facility] 4 13:02:09 Patient status finding [id number] Completed 201311/30/2013 RECORDED 05/25/19 14 1:31PM BY MARIA DE JESUS ORTIZ MA, ANNOTATI ON/ADDEN DUM Rosanna Odom MA null, MALA - [facility] 8 10:12:42 Dysfunct ional uterine bleeding Completed 201311/30/2013 IMPRESSI ON: PT HAD BEENO N CONTROL STARTED WITH NIGHT SWEATS AND OTHER SYMPTOMS , AND SAW INTERNAL COMMUNICATIONS SPECIALIST THEN INFERTIL ITY DOC IN [facility] AND WAS DX WITH PREMATUR E [...] ORTIZ MA, RAMSEY ON/ADDEN DUM Not Available [facility] 4 03:51:25 Influenz a vaccine needed [id number] 06 Completed 201311/30/2013 RECORDED 05/25/19 14 1:31PM BY MARIA DE JESUS ORTIZ MA, MONYATI ON/ADDEN DUM Not Available [facility] 4 03:51:25 Adult health examinat ion Completed 201311/30/2013 IMPRESSI ON: PT IS 8 WEEKS , IS DOING WELL, 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INTERNAL COMMUNICATIONS SPECIALIST, WAS FOLLOWED AT HIGH RISK AT [place] FOR IVF; RECORDED 05/25/19 14 1:31PM BY MARIA DE JESUS ORTIZ MA, MONYATI ON/ADDEN DUM Not Available [facility] 4 03:51:25 Follow-u p encounte r Completed 201311/30/2013 RECORDED 05/25/19 14 1:31PM BY MARIA DE JESUS ORTIZ MA, ANNOTATI ON/ADDEN DUM Not Available [facility] 4 03:51:25 Ovarian failure 398646773 Completed 201311/30/2013 RECORDED 05/25/19 14 1:31PM BY MARIA DE JESUS ORTIZ MA, ANNOTATI ON/ADDEN DUM Not Available [facility] 4 03:51:26 Problem Notes None recorded. Procedures Surgical History Date Name Laterality Status Provider Name and Address Organization Details Recorded Time 02/13/20 19 Diabetic Foot Exam (Monofilament) completed Teresa Gallegos PA-C [address] [address], [place], [address], [facility] 02/12/2019 15:24:35 12/25/19 19 Date of Last Pap Smear completed Abraham Monk MA [facility] 02/20/2020 14:53:32 05/01/19 10 Date of Last Colonoscopy completed Rosanna Odom MA [facility] 01/04/2018 10:15:13 05/01/19 10 Colonoscopy completed Rosanna Odom MA [facility] 01/04/2018 10:15:02 Tonsillectomy completed Abraham Monk MA [facility] 01/18/2014 14:37:34 Other completed Abraham Monk MA [facility] 01/18/2014 14:42:13 Imaging Results None recorded. Procedure [...] 04/28/19 13 10:37AM BY ABRAHAM MONK, OFFICE VISIT;MT TC FOR DROWSINE SS Not Available Not [...] mass index (BMI) Body height Oxygen saturation Heart rate Body temperature Systolic And Diastolic Provider Name and Address Organization Details Last Updated DateTime 7 89221.6 2 g 33.3 kg/m2 162.56 cm 98 % 83 /min 98.6 [degF] 117/65 mm[Hg] Abraham Monk MA [facility] 7 08:48:51 Date Recorded Body height Body mass index (BMI) Body weight Heart rate Oxygen saturation Body temperature Systolic And Diastolic Provider Name and Address Organization Details Last Updated DateTime 8 162.56 cm 36.2 kg/m2 40446.9 9 g 74 /min 98 % 98.6 [degF] 118/80 mm[Hg] [facility] 8 10:20:05 Date Recorded Oxygen saturation Body weight Heart rate Body mass index (BMI) Body height Body temperature Systolic And Diastolic Provider Name and Address Organization Details Last Updated DateTime 4 99 % 18800.0 82438 g 78 /min 29.6 kg/m2 162.56 cm 98.1 [degF] 119/68 mm[Hg] Abraham Monk MA [facility] 4 14:53:05 Date Recorded Body height Body mass index (BMI) Body weight Heart rate Body temperature Oxygen saturation Systolic And Diastolic Provider Name and Address Organization Details Last Updated DateTime 9 162.56 cm 34.2 kg/m2 62000.8 8 g 90 /min 97.3 [degF] 98 % 108/70 mm[Hg] Rosanna Odom MA [facility] 9 14:45:20 Date Recorded Body height Oxygen saturation Heart rate Body temperature Body mass index (BMI) Body weight Systolic And Diastolic Provider Name and Address Organization Details Last Updated DateTime 0 162.56 cm 98 % 87 /min 98.42 [degF] 31.6 kg/m2 70788.7 g 123/71 mm[Hg] Abraham Monk MA [facility] 0 14:47:28 Social History Question Answer Notes LastModified by Organizat ion Details LastModified Time Tobacco Smoking Status Never Smoker bAraham Monk MA [facility] 01/18/2014 14:42:04 Do You Have An Advance Directive? No [email or web address] Information not available 01/18/2014 Animal Exposure? No [email or web address] Informat ion not available 01/18/2014 Do You Wear A Helmet When Biking? No [email or web address] Information not available 01/18/2014 Is Blood Transfusion Acceptable In An Emergency? Yes Information not available 01/18/2014 What Is Your Level Of Caffeine Consumption? Occasional Information not available 01/18/2014 How Much Tobacco Do You Chew? None [email or web address] Information not available 01/18/2014 What Type Of Diet Are You Following? REGULAR [email or web address] Information not available 01/18/2014 Which Illicit Or Recreational Drugs Have You Used? None Information not available 01/04/2018 Education Post Graduate [email or web address] Information not available 01/18/2014 Have There Been Any Changes To Your Family Or Social Situation? No [email or web address] Information no t available 01/18/2014 How Many Days In The Past Year Have You Had A Heavy Drinking Consumption (4+ Female, 5+ Male)? 0 [email or web address] Information no t available 01/18/2014 Are There Any Guns Present In Your Home? No [email or web address] Information not available 01/18/2014 Legally Blind In One Or Both Eyes? No [email or web address] Information no t available 01/18/2014 Live Alone Or With Others? With Others Information not available 02/12/2019 Do You Take Precautions To Prevent Distracted Driving? Yes [email or web address] Information not available 11/19/2016 How Often Do You Need To Have Someone Help You When You Read Instructions, Pamphlets, Or Other Written Material From Your Doctor Or Pharmacy? Never Information not available 01/04/2018 Have You Served In The ? No [email or web address] Information not available 11/19/2016 Have You Or Anyone In Your Household Had Any Of The Following Symptoms In The Last 14 Days: Sore Throat, Cough, Chills, Body Aches For Unknown Reasons, Shortness Of Breath For Unknown Reasons, Loss Of Smell, Loss Of Taste, Fever At Or Greater Than 100 Degrees Fahrenheit? No [email or web address] Information not available 02/20/2020 Are You Or Anyone In Your Household A Health Care Provider Or Emergency Responder? Yes Information not available 02/20/2020 To The Best Of Your Knowledge Have You Been In Close Proximity To Any Individual Who Tested Positive For COVID-19? No [email or web address] Information not available 02/20/2020 Marital Status Domestic Partner [email or web address] Information not available 01/18/2014 What Was The Date Of Your Most Recent Tobacco Screening? 01/04/2018 Information not available 11/16/2018 How Many Children Do You Have? 2 Information not available 11/19/2016 Do You Use Protection During Sex? No [email or web address] Information not available 01/18/2014 Difficulty Reading? No Information not available 01/18/2014 What Is Your Relationship Status? Domestic Partner [email or web address] Information not available 01/18/2014 Seat Belts Used Routinely Yes [email or web address] Information not available 01/18/2014 Are You Sexually Active? Yes [email or web address] Information not available 01/18/2014 Smoke Alarm In Home Yes Information not available 01/04/2018 At What Age Did You Start Smoking Tobacco? 0 Information not available 01/04/2018 Are You Passively Exposed To Smoke? No Information no t available 01/04/2018 How Much Tobacco Do You Smoke? No Information not available 01/04/2018 Do You Use Sunscreen Routinely? Yes [email or web address] Information not available 01/18/2014 How Many Years Have You Smoked Tobacco? 0 Information not available 01/04/2018 Do You Have Difficulty Walking Or Climbing Stairs? No [email or web address] Information not available 01/18/2014 Sex: Unknown Functional Status Question Answer Note LastModified by Organizat ion Details LastModified Time Do you use any illicit or recreational drugs? No [email or web address] Information not available 01/18/2014 What is your level of alcohol consumption? Occasional [email or web address] Information not available 01/18/2014 Do you or have you ever used smokeless tobacco? Never used smokeless tobacco Information not available 02/12/2019 Are you currently employed? Yes [email or web address] Information not available 01/18/[address]y [address] at night? No [email or web address] Information no t available 01/18/2014 Are you able to care for yourself independently? Yes Information not available 01/18/2014 What is your occupation? [employer] [email or web address] Information not available 01/18/2014 Do you have difficulty dressing, bathing, grooming, or toileting? No Information not available 01/18/2014 Do you or have you ever used e-cigarettes or vape? Never used electronic cigarettes Information not available 02/12/2019 What is your exercise level? Occasional [email or web address] Information not available 01/18/2014 Mental Status Question Answer Note LastModified by Organization D etails LastModified Time Do you have difficulty concentrating, remembering or making decisions? No [email or web address] Information no t available 01/18/2014 Family History Relationship Description Onset Age of this Age Resolved Age Notes LastModified by Organization Details LastModified Time Father Diabetes mellitus [email or web address] Not available 01/18 14:40:46 Brother Diabetes mellitus Not available 01/18 14:40:46 Mother Hypertensive disorder [email or web address] Not available 01/18 14:40:46 Notes:No colon or breast can cer Medical History Condition Response Coronary Artery Disease N Gout N Other N Blood Diseases N Kidney Stones N Hyperthyroidism N Breast Cancer N mrsa exposure N Lung Disease N Hypothyroidism Y Depression N COPD N Defects or Inherited Disease N Developmental or Behavioral Disorders N Breast Problem N Anesthesia Complications N Headaches/Migraines N Varicose Veins N Anxiety Disorder N Muscle, Joint, or Bone Problems N Obesity N Vision or Eye Problems N Arthritis N Head Injury/Concussion N Infertility N Polyps N Mental Disorder N Congenital Anomalies N Acid Reflux (GERD) N Cancer N Stroke N ADHD N Endometriosis N High Cholesterol N Liver Disease N Headaches N Fibromyalgia N Kidney Disease N Heart Problems N Ear or Hearing Problems N Hospitalizations N Thyroid Problems N GI Problems Y Developmental Delay N Acne N Eating Disorder N Skin Problems N Anemia N Constipation N Bladder Problems N Mental Illness N Diabetes Y Ovarian Cancer N Bedwetting N Blood Transfusions N Heart Problems/Murmur N Seizures/Epilepsy N Tuberculosis N AIDS/HIV N Congestive Heart Failure (CHF) N Eczema N Abuse/Domestic Violence N Diverticulitis N Asthma N Allergies N Reflux/GERD N [...] virus, quadrivalent, preservative 9 completed [place] [facility] 02/12/2019 14:38:43 Influenza, split virus, quadrivalent, preservative 0 [facility] [place] 14:49:54 Hep B, adult 8 completed Not Available [facility] 11/06/2013 13:40:31 Hep B, adult 9 completed Not Available [facility] 11/06/2013 13:40:31 Hep B, adult 1 completed Not Available [facility] 11/06/2013 13:40:31 DTaP 1 completed Not Available [facility]11/06/2013 13:40:31 DTaP 1 completed Not Available [facility]11/06/2013 13:40:31 DTaP 2 completed Not Available [facility] 11/06/2013 13:40:31 DTaP 3 completed Not Available [facility] 11/06/2013 13:40:31 DTaP 6 completed Not Available [facility] 11/06/2013 13:40:31 Td (adult), 2 Lf tetanus toxoid, preservative free, adsorbed 6 completed Not Available [facility] 11/06/2013 13:40:31 IPV 1 completed Not Available [facility] 11/06/2013 13:40:31 IPV 1 completed Not Available [facility] 11/06/2013 13:40:31 IPV 2 completed Not Available [facility] 11/06/2013 13:40:31 IPV 6 completed Not Available [facility] 11/06/2013 13:40:32 MMR 2 completed Not Available [facility] 11/06/2013 13:40:32 MMR 2 completed Not Available [facility] 11/06/2013 13:40:32 HPV, quadrivalent 6 completed Not Available [facility] 11/06/2013 13:40:32 HPV, quadrivalent 7 completed Not Available [facility] 11/06/2013 13:40:32 HPV, quadrivalent 7 completed Not Available [facility] 11/06/2013 13:40:32 Influenza, split virus, trivalent, preservative 1 completed Not Available [facility] 11/06/2013 13:40:32 pneumococcal polysaccharide PPV23 1 completed Not Available [facility] 11/06/2013 13:40:32 Tdap 6 completed Not Available [facility] 11/06/2013 13:40:32 Influenza, split virus, trivalent, preservative 2 completed Not Available [facility] 11/06/2013 13:40:32 Tdap 3 completed Not Available [facility] 11/06/2013 13:40:32 Past Encounters Encounter ID Performer Location Encounter Start Date Encounter Closed Date Diagnosis/Indication Diagnosis SNOMED-CT Code Diagnosis ICD10 Code Diagnosis IMO Codes Diagnosis Note [id number] [address]Comm [facility] [address] [facility] [place] [address] 03/23/2010 00:00:00 [id number] autoEComm erce [address] [facility] [place] [address] 07/08/2010 00:00:00 [id number] autoEComm erce [address] [facility] [place] [address] 04/27/2011 00:00:00 [id number] autoEComm erce [address] [facility] [place] [address] 04/28/2012 00:00:00 [id number] autoEComm erce [address] [facility] [place] [address] 09/11/2013 00:00:00 [id number] Smiley hobson MD Main Office [address] [place] [address] 01/18/2014 14:33:24 01/18/2014 15:15:24 Adult health examination [id number] pt will get flu shot at work next month, knows to get early in season due to DM and enbrel tx Type 1 deidre betes mellitus [id number] Shayna thyroiditis 13760686 Rheumatoid arthritis 17842316 Tendinitis 73756065 bilate ral wrists form picking up baby, change motion, ice, adn if not better to rheumatolo gy for injecitons or braces [id number] Smiley hobson MD Main Office [address] [place] [address] 11/19/2016 08:37:01 11/19/2016 09:31:09 Adult health examination 331035247 Z00.00 utd o screening care in [place] Skin lesion 50073161 L98 .9 hypopigmen jessica asreadolfo since , new to pt, pt to se tup derm appt in [place] Rheumatoid arthritis 698 56911 M06.9 was on Enbrel, off for , will transfer locally to osito gy, pt to make the appt Type 1 deidre betes mellitus 26329188 E10.9 followed closely by endo (actually works with the docs) adjusting diet and insulin [id number] Roderick Gallegos PA-C Main Office [address] [facility] [address] [facility] [place] [address] 01/04/2018 09:58:30 01/04/2018 10:57:54 Adult health examination 607949862 Z00.00 seen by revenue coordinator earlier today will get flu shot at work all labs done by endo in 5.18 - will f/u c endo in next 1-2 months, anticipate will get f/u labs done at that time as well Needs infl uenza immunization 607473773 Z23 pt will get at work later this month Skin lesion 50913767 L98 .9 cont f/u c derm - vitiligo Rheumatoid arthritis 698 92948 M06.9 pt did not make rheum eval locally last yr, no jt pain lately so declines referral today, can see rheum at [facility] prn Type 1 deidre betes mellitus 80497079 E10.9 followed closely by amalia (actually works with the docs) adjusting diet and insulin to have eye exam later today Shayna thyroiditis 21 380308 E06.3 cont to f/u c endo Vitiligo 33905986 L80 cont f/u c derm Body mass index 30+ - obesity 812360859 Z68.36 has potential access to nutrition at [facility] [id number] Quinton Cross MD Main Office [address] [place] [address] 02/12/2019 14:32:31 02/12/2019 15:19:52 Adult health examination 816641440 Z00.00 t flu shot at work all labs done by endo in June and A1c was repeated during the summer - will f/u c endo as scheduled. Screening for malignant neoplasm of cervix 460396857 Z12.4 Type 1 deidre betes mellitus 09019875 E10.9 followed closely by amalia (actually works with the docs) adjusting diet and insulin, on insulin pump and as of late on Trulicity for weight control Rheumatoid arthritis 698 46585 M06.9 pt did not make rheum eval locally last yr, no jt pain lately so declines referral today, can see rheum at [facility] prn Shayna thyroiditis 21 416533 E06.3 cont to f/u c endo Obesity 806092375 E66.9 Z68.30 [id number] Smiley hobson MD Main Office [address] [facility] [address] [facility] [place] [address] 02/20/2020 14:29:55 02/20/2020 15:42:45 Adult health examination 136546566 Z00.00 utd on screening care in [place] Shayna thyroiditis 21 596585 E06.3 endo follows Rheumatoid arthritis 698 90317 M06.9 I advised pt to set up a visit with her rheum doc in [place] to see if he agrees she can stay off the Enbrel. Type 1 deidre betes mellitus 69389629 E10.9 followed closely by endo (actually works with the docs) adjusting diet and insulin Health Concerns Section Related Observation LastModified by Organization Detai ls LastModified Time None Recorded Concern Status LastModified by Organization Details LastModified Time None Recorded Advance Directives Directive N: Payers Insurance Date Sequence Insurance Name Policy Number Policy Sawyer Covered Member ID Sawyer Member ID Guarantor Name 05/24/2023 1 [facility] [id number] Collette Kenyon [id number] Collette Kenyon Notes Date Note Type Note Provider Name and Address Organization Details Recorded Time 01/18/2014 text/html Pt is here for a PE. she is diong well, all her screening is utd, DM well controlled Smiley rodriguez [place] - [facility] 01/19/2014 21:30:49 11/19/2016 text/html Generic HPI TemplateReported by Patient Pt is here for an annual PE. She is in her first trimester, has type 1 DM, is followed by all her care in [place]. SHe notes her last A1C was a bit high at 8.4 but is working on adjusting her diet, was also having some lows, now on very low carb diet. Smiley ClayKgrick aracelis rodriguez, [facility] [place] 11/19/2016 09:33:40 01/04/2018 text/html Generic HPI TemplateReported by Patient here for annual pe. Smiley DelaneyRoberrick aracelis rodriguez, [facility] [place] 01/04/2018 11:22:00 02/12/2019 text/html Generic HPI TemplateReported by [email or web address] year old female for annual PE. Sees INTERNAL COMMUNICATIONS SPECIALIST yearly. Pt. has h/o abnormal Pap Smears [...] noted in the HPI Teresa Gallegos PA-C [address] [address], [place], [address], [facility] 02/12/2019 15:30:28 02/20/2020 text/html Generic HPI TemplateReported by Patient PT is here for a PE. 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 PT with Type 1 DM, doing well with pump, endo in [place] where she works treats her and gets all labs. Not on med for RA, wa on Enbrel up until last 2.5 years ago, off since, denies any joint symptoms, has not sen her rheum doc to discuss if staying off is ok Smiley ClayJeronimo rodriguez, [facility] 02/20/2020 15:33:51 OBGyn Episode No OBEpisode recorded.
== END 2025-04-11 10:54 | disposition home or self-care (01) ==
LOC: HO.LNP 10:53
PROVIDERS: PCP Internal Medicine; Visit Provider Internal Medicine
DX: Z00.00 Encounter for general adult medical examination without abnormal findings (principal); I10 Essential (primary) hypertension; E10.9 Type 1 diabetes mellitus without complications; R80.9 Proteinuria, unspecified; Z78.0 Asymptomatic menopausal state
CPT/HCPCS: 87626; 88175; 96127